=== PATIENT | female | born 2000 | race Caucasian/White ===

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

== ENCOUNTER 2022-11-12 07:33 | Inpatient (IN) ==
--- NOTE | 2022-11-12 08:13 | History & Physical Report ---
Date of Service November 12, 2022 Assessment & Plan (1) 39 weeks gestation of : Plan: Admit, routine labs, start oxytocin for augmentation Epidural if patient request Anticipate spontaneous vaginal delivery (2) Prior shoulder dystocia at delivery in third trimester, antepartum: Plan: Explained to patient that she is at increased risk of shoulder dystocia occurring due to previous shoulder dystocia, susected macrosomia on recent US. Studies have shown a 11.9%-16.7% recurrence rate for shoulder dystocia. Factors that will increase the risk of recurrence are high maternal pre-pre gnancy weight, high maternal weight at delivery, prolonged second stage of labor, birthweight greater than the index and a birthweight greater than 4000gm. Explained that no testing is available to guarantee whether or not a shoulder dystocia will occur but that most shoulder dystocias resolve with specific manuevers such as suprapubic pressure, Alexander maneuver, wood screw maneuver, delivering the posterior arm, pubic symphisotomy, or Zavenelli manuever to replace the head and deliver by section. Maternal complications of shoulder dystocia include hemorrhage (11%), extension of an episiotomy into the rectum (3.8%), and cervical or vaginal lacerations. complications include brachial plexus palsy (16.8%), clavicular fracture (9.5%), humeral fracture (4.2%), and rare cases of hypoxic ischemic encephalopathy or . Explained that most cases of trauma heal without complications. Recommend to avoid operative vaginal delivery and may consider delivery in the OR to keep risk as low as possible. Patient was offered primary delivery for history of shoulder dystocia, she declines at this time Admission and Anticipated Discharge Date Admission Date: November 12, 2022 History of Present Illness Chief Complaint: IOL Primary Care Provider: Vonda Lynn DO Patient is a 22-year-old -0-0-1 at 39 weeks and 1/7 days who presents to labor induction for elective induction of labor for suspected macrosomia. Patient denies contractions, leaking of fluid or vaginal bleeding. Notes good movement. Denies headache, blurry vision, right upper quadrant or epigastric pain. Otherwise feeling well has been complicated by GBS positive, iron deficiency anemia, and Rh- status. Upon review of previous delivery notes noted "mild to moderate shoulder dystocia". Patient has never been counseled this entire about previous shoulder dystocia or offered elective primary delivery Allergies Allergy/AdvReac Type Severity Reaction Status Date / Time No Known Allergies Allergy Verified 10/27/22 05:17 Home Medications Medication Instructions Recorded Confirmed Type ondansetron 4 mg disintegrating 4 mg PO Q6H PRN nausea and 04/03/22 11/12/22 Rx tablet vomiting #20 tabs vit no.95-ferrous 1 tab PO DAILY 04/03/22 11/12/22 History fumarate 28 mg-folic acid 800 mcg tablet () cyanocobalamin (vitamin B-12) 1,000 mcg PO DAILY 10/27/22 11/12/22 History 1,000 mcg tablet (Vitamin B-12) folic acid 1 mg tablet 1 mg PO DAILY 10/27/22 11/12/22 History Patient History Medical History No significant past medical history Spontaneous vaginal delivery 10/10/19 LFC 10lbs 5.5oz Surgical History No significant past surgical history Family History Other Family history not known due to adoption Social History Smoking Status: Never smoker Second Hand Exposure: No; Hx Alcohol Use: No Hx Substance Use: No Preferred Language: Welsh Communication Ability: Effective Tin Assorter Required: No Beliefs That Will Affect Care: None marital status: Single marital status details: Jan Olvera Current Living Situation: Spouse Current Living Situation Comment: House with FOB and daughter Other Information That Helps Us Care for You: No Feels Safe at Home: Yes Safety Concerns: Feels Safe At This Time Assistive Devices: None OB History with shoulder dystocia [employer]OR History See record Physical Exam Constitutional: WD/WN, vitals as above Respiratory: normal respiratory effort, lungs clear to auscultation Cardiovascular: RRR, no murmur, no edema Gastrointestinal (Abdomen): normal bowel sounds, soft, nontender, no hepatosplenomegaly EFW 3800 g Genitourinary: Cervix: 3/50/-2, anterior and soft, sutures felt ,cephalic Results & Data ([facility]) Vital Signs (Past 12 Hours) Vital Signs Temp Pulse Resp BP 11/12/22 07:47 36.6 C 16 11/12/22 07:41 98 H 124/76 Laboratory Results Laboratory Results WBC 8.68 K/ul (4.8-10.8) 11/12/22 08:35 RBC 3.77 M/uL (3.93-5.22) L 11/12/22 08:35 Hgb 11.8 g/dl (12.0-16.0) L 11/12/22 08:35 Hct 35.1 % (34.1-44.9) 11/12/22 08:35 MCV 93.1 fL (80.0-100.0) 11/12/22 08:35 MCH 31.3 pg (25.0-34.0) 11/12/22 08:35 MCHC 33.6 g/dL (32.0-36.0) 11/12/22 08:35 RDW Std Deviation 51.8 fL (36.4-46.3) H 11/12/22 08:35 RDW Coeff of West 15.0 % (11.5-14.5) H 11/12/22 08:35 Plt Count 192 K/uL (130-400) 11/12/22 08:35 MPV 10.5 fL (9.4-12.3) 11/12/22 08:35 SARS-CoV-2, RNA, NAAT NEGATIVE (NEGATIVE) 11/12/22 Unknown Crossmatch See Detail 11/12/22 08:35 Monitoring External Monitor heart tracing: Baseline 140, moderate variability, positive accelerations, no decelerations, category 1 tracing Tocodynamometer Irregular contractions
[2022-11-12] MEDS ORDERED: OXYTOCIN 30 UNITS/500 ML BAG IV PRN ×4 (08:24→17:48)
[2022-11-12] MEDS ORDERED: LIDOCAINE 1% LOCAL 20 ML VIAL INFIL PRN (08:24)
[2022-11-12] MEDS ORDERED: SODIUM CHLORIDE 0.9% 250 ML IV PRN (08:41)
[2022-11-12] MEDS ORDERED: PENICILLIN G POTASSIUM 6 MU in DEXTROSE 5% 250 ML IV ONE (09:00)
[2022-11-12 09:02] LABS: Hematocrit (blood only) 35.1 % (34.1-44.9); Hemoglobin 11.8 g/dl (12.0-16.0); Mean Corpuscular Hemoglobin 31.3 pg (25.0-34.0); Mean Corpuscular Hgb Conc 33.6 g/dL (32.0-36.0); Mean Corpuscular Volume 93.1 fL (80.0-100.0); Mean Platelet Volume 10.5 fL (9.4-12.3); Platelet Count 192 K/uL (130-400); RDW Standard Deviation 51.8 fL (36.4-46.3); Red Blood Count 3.77 M/uL (3.93-5.22); White Blood Count 8.68 K/ul (4.8-10.8)
[2022-11-12] MEDS: LACTATED RINGER'S 1,000 ML IV PRN ×2 (09:30→15:58)
[2022-11-12] MEDS: PENICILLIN G POTASSIUM 3 MU in DEXTROSE 5% 100 ML IV PRN ×2 (13:13→17:17)
--- NOTE | 2022-11-12 14:45 | Labor Progress Brief Note ---
Date of Service November 12, 2022 Subjective Patient doing well at this time, pain is 5 out of 10. Unsure if she wants epidural at this time Assessment & Plan (1) 39 weeks gestation of : Plan: Continue oxytocin for augmentation Epidural if patient request Anticipate spontaneous vaginal delivery (2) Prior shoulder dystocia at delivery in third trimester, antepartum: Plan: Explained to patient that she is at increased risk of shoulder dystocia occurring due to previous shoulder dystocia, susected macrosomia on recent US. Studies have shown a 11.9%-16.7% recurrence rate for shoulder dystocia. Factors that will increase the risk of recurrence are high maternal pre- weight, high maternal weight at delivery, prolonged second stage of labor, birthweight greater than the index and a birthweight greater than 4000gm. Explained that no testing is available to guarantee whether or not a shoulder dystocia will occur but that most shoulder dystocias resolve with specific manuevers such as suprapubic pressure, Alexander maneuver, wood screw maneuver, delivering the posterior arm, pubic symphisotomy, or Zavenelli manuever to replace the head and deliver by section. Maternal complications of shoulder dystocia include hemorrhage (11%), extension of an episiotomy into the rectum (3.8%), and cervical or vaginal lacerations. complications include brachial plexus palsy (16.8%), clavicular fracture (9.5%), humeral fracture (4.2%), and rare cases of hypoxic ischemic encephalopathy or . Explained that most cases of trauma heal without complications. Recommend to avoid operative vaginal delivery and may consider delivery in the OR to keep risk as low as possible. Patient was offered primary delivery for history of shoulder dystocia, she declines at this time (3) Positive GBS test: Plan: Patient has received 2 doses of penicillin G at this time, continue until delivery to prevent GBS sepsis in the (4) Macrosomia affecting management of mother in third trimester, single gestation: (5) Rh negative state in antepartum period: Admission and Anticipated Discharge Date Admission Date: November 12, 2022 Physical Exam Constitutional: WD/WN, vitals as above Respiratory: normal respiratory effort, lungs clear to auscultation Cardiovascular: RRR, no murmur, no edema Gastrointestinal (Abdomen): normal bowel sounds, soft, nontender, no hepatosplenomegaly Genitourinary: heart tracing: Baseline 130, moderate variability, positive accelerations, no decelerations, category 1 tracing Tocometer: Contractions every 3 to 4 minutes Oxytocin currently at 8 milliunits/h Cervix: 5/90/-1, AROM performed with clear fluid, no cord felt, IUPC placed without difficulty. No complications Results & Data ([facility]) Vital Signs (Past 12 Hours) Vital Signs Temp Pulse Resp BP 11/12/22 07:47 36.6 C 16 11/12/22 14:27 18 11/12/22 14:27 36.7 C 18 11/12/22 14:28 18 11/12/22 14:28 36.7 C 18 11/12/22 14:33 76 11/12/22 14:33 121/66 11/12/22 13:57 80 11/12/22 13:57 116/68 11/12/22 12:30 97 H 11/12/22 12:30 112/69 11/12/22 11:30 16 11/12/22 11:30 36.8 C 16 11/12/22 11:30 81 11/12/22 11:30 118/62 11/12/22 10:30 88 11/12/22 10:30 108/60 11/12/22 09:30 88 11/12/22 09:30 100/59 L 11/12/22 07:41 98 H 124/76 Laboratory Results Laboratory Results WBC 8.68 K/ul (4.8-10.8) 11/12/22 08:35 RBC 3.77 M/uL (3.93-5.22) L 11/12/22 08:35 Hgb 11.8 g/dl (12.0-16.0) L 11/12/22 08:35 Hct 35.1 % (34.1-44.9) 11/12/22 08:35 MCV 93.1 fL (80.0-100.0) 11/12/22 08:35 MCH 31.3 pg (25.0-34.0) 11/12/22 08:35 MCHC 33.6 g/dL (32.0-36.0) 11/12/22 08:35 RDW Std Deviation 51.8 fL (36.4-46.3) H 11/12/22 08:35 RDW Coeff of West 15.0 % (11.5-14.5) H 11/12/22 08:35 Plt Count 192 K/uL (130-400) 11/12/22 08:35 MPV 10.5 fL (9.4-12.3) 11/12/22 08:35 SARS-CoV-2, RNA, NAAT NEGATIVE (NEGATIVE) 11/12/22 Unknown Blood Type A Negative 11/12/22 08:35 Antibody Screen NEGATIVE 11/12/22 08:35 Crossmatch See Detail 11/12/22 08:35
[2022-11-12] MEDS ORDERED: ONDANSETRON INJ 2 MG/ML 2 ML VIAL IV PRN (15:38)
[2022-11-12] MEDS ORDERED: fentaNYL 2MCG/ML ROPIVACAINE 1.25MG/ML 100 ML BAG EPI PRN (15:38)
[2022-11-12] MEDS ORDERED: NALOXONE HCL 1 MG in SODIUM CHLORIDE 0.9% 1000ML 1,000 ML IV PRN (15:38)
[2022-11-12] MEDS ORDERED: diphenhydrAMINE 50 MG/ML VIAL IV PRN (15:38)
[2022-11-12] MEDS ORDERED: NALBUPHINE HCL INJ 10 MG/ML AMP IV PRN (15:38)
[2022-11-12] MEDS ORDERED: ePHEDrine sulfate 50 MG/ML AMP IV PRN (15:38)
[2022-11-12] MEDS ORDERED: NALOXONE HCL 0.4 MG/1 ML VIAL/CARP IV PRN (15:38)
[2022-11-12] MEDS ORDERED: ePHEDrine sulfate 50 MG/ML AMP ONE (15:40)
[2022-11-12] MEDS ORDERED: SODIUM CHLORIDE 0.9% INJ 10 ML VIAL ONE (15:41)
[2022-11-12] MEDS ORDERED: LIDOCAINE 2%/EPINEPHRINE 1:200,000 20 ML SDV ONE (15:41)
[2022-11-12] MEDS ORDERED: fentaNYL citrate 100 MCG/2 ML VIAL ONE (15:41)
[2022-11-12] MEDS ORDERED: BUPIVACAINE 0.25% 30 ML VIAL ONE (15:41)
[2022-11-12] MEDS ORDERED: fentaNYL 2MCG/ML ROPIVACAINE 1.25MG/ML 100 ML BAG EPI ONE (15:42)
--- NOTE | 2022-11-12 15:46 | Anesthesiology Consultation ---
Date of Service November 12, 2022 Assessment & Plan (1) Encounter for pre-operative examination: Chart Review Chart Review: Acceptable Risk for Labor Epidural Consults Requested none ASA ASA2 Proposed Anesthesia Anesthesia Type: Labor Epidural Risk / Benefits Reviewed With: PT / POA / Parent / Guardian, Accepts Plan and Informed Consent Obtained History Height/Weight Height: 5 ft 8 in Weight: 122.8 kg Allergies Allergy/AdvReac Type Severity Reaction Status Date / Time No Known Allergies Allergy Verified 10/27/22 05:17 Medications Home Medications Medication Instructions Recorded Confirmed Last Taken ondansetron 4 mg disintegrating 4 mg PO Q6H PRN nausea and 04/03/22 11/12/22 Unknown tablet vomiting #20 tabs vit no.95-ferrous 1 tab PO DAILY 04/03/22 11/12/22 11/11/22 fumarate 28 mg-folic acid 800 mcg tablet () cyanocobalamin (vitamin B-12) 1,000 mcg PO DAILY 10/27/22 11/12/22 11/11/22 1,000 mcg tablet (Vitamin B-12) folic acid 1 mg tablet 1 mg PO DAILY 10/27/22 11/12/22 11/11/22 Active Medications Generic Name Dose Route Start Last Admin Trade Name Freq PRN Reason Stop Dose Admin Lactated Ringer's 1,000 mls @ 125 mls/hr 11/12/22 08:24 11/12/22 09:30 Lr IV 11/14/22 08:23 125 mls/hr .Q8H PRN Administration L&D Protocol Protocol Penicillin G Potassium 3 mu/ 106 mls @ 100 mls/hr 11/12/22 11:24 11/12/22 14:17 Dextrose IV 11/22/22 11:23 Infused Q4H PRN Infusion GBS(+) Until Delivery Oxytocin 30 units in 500 mls @ 8 mls/hr 11/12/22 08:26 11/12/22 11:30 Pitocin IV 11/14/22 08:25 0.48 units/hr .Q24H PRN 8 mls/hr Labor Induction/Augmentation Titration Protocol 0.48 UNITS/HR Past Medical History Medical History Anemia No significant past medical history Spontaneous vaginal delivery 10/10/19 LFC 10lbs 5.5oz Exercise / Class Metabolic Activity II 4-5 Yardwork/Stairs/Walk up hill Past Family History Family History Other Family history not known due to adoption Past Surgical History Surgical History No significant past surgical history Past Anesthesia History No Hx of Anesthesia Complications and No Family Hx of Anesthesia Complications History of PONV No Hx of PONV and No Hx of Motion Sickness Social History Smoking Status: Never smoker Hx Alcohol Use: No Hx Substance Use: No Physical Exam Vital Signs Last Vital Signs Temp 98.1 F 11/12/22 14:28 Pulse 88 11/12/22 15:31 Resp 18 11/12/22 14:28 BP 118/65 11/12/22 15:31 ENMT Mouth: no dentition abnormality Thyromental Distance: > or= 3.5 Finger Breadths Mallampati Class: II Neck normal visual inspection Respiratory normal respiratory effort Auscultation: lungs clear to auscultation bilaterally Cardiovascular Rate/Rhythm: regular rate and regular rhythm Testing Laboratory Results 11/12/22 08:35 Blood Type A Negative 11/12/22 08:35 Antibody Screen NEGATIVE 11/12/22 08:35
[2022-11-12] MEDS ORDERED: ACETAMINOPHEN 325 MG TAB PO PRN (17:48)
[2022-11-12] MEDS ORDERED: DIPHTHERIA/TETANUS/PERTUSSIS 0.5mL SYR/VIAL (Age 7+yrs) IM ONE (17:48)
[2022-11-12] MEDS ORDERED: bisacodyL 10 MG SUPP PR PRN (17:48)
[2022-11-12] MEDS ORDERED: BENZOCAINE 20% AER SPR 82.5 GM CAN EXT PRN (17:48)
[2022-11-12] MEDS ORDERED: HYDROCORTISONE ACETATE 25 MG SUPP PR PRN (17:48)
--- NOTE | 2022-11-12 17:51 | Delivery Summary ---
Vaginal Delivery Summary Date of Service November 12, 2022 Vaginal Delivery Summary Delivery Note History synopsis: Patient is a 22-year-old -0-0-1 at 39 weeks and 1 day who is scheduled for elective induction of labor at 39 weeks. On review of records and previous delivery note noted previous shoulder dystocia at the time of last delivery. Patient was adequately counseled, offered primary elective section and declined at this time. Initial exam she is 3 cm dilated. Received 2 doses of penicillin G for GBS prophylaxis and was started on oxytocin for augmentation. She changed to 5 cm dilated, artificial rupture of membranes was performed and she received an epidural for pain control. She was then checked and found to be complete and I was called for delivery. Delivery Summary: Patient was placed in the dorsal lithotomy position. She was prepped and draped in the usual sterile fashion. Upon maternal pushing the head was delivered atraumatically, downward traction was applied and anterior shoulders delivered (no shoulder dystocia), then posterior shoulders then the remainder of the infants body. The infants mouth and nose were bulb suctioned with 60 sec of delayed cord clamping. A female infant was delivered at 1729, weight pending with APGARS of 8 at 1 minute and 9 at 5 minutes. The umbilical cord was clamped times two and cut. The infant was handed off to the awaiting nursing staff. Cord blood gases were not obtained. The placenta delivered intact with three vessel cord. Placenta was not sent to pathology. Thirty units of Pitocin were added to the IV fluid and allowed to run freely. Uterine massage was performed until uterus was deemed firm. Upon inspection of the perineum, cervix was intact. Second degree laceration was noted which was repaired with 3-0 vicryl in the usual fashion. Upon re-inspection the patient was hemostatic. Uterus again massaged and found to be firm. Needle and sponge counts were correct. Patient was stable and allowed to recover in L&D room. Infant was stable and remained in room with mother in the Family Care Unit. EBL 300mls
--- NOTE | 2022-11-12 18:35 | Anesthesia Procedure Note ---
Date of Service November 12, 2022 Anesthesia Post Epidural Note Vital Signs Vital Signs: Temp Pulse Resp BP Pulse Ox 98.2 F 81 18 116/56 L 95 11/12/22 16:23 11/12/22 18:31 11/12/22 18:30 11/12/22 18:31 11/12/22 17:43 Pain Intensity Abdomen: Pain Intensity: 6 Back: Pain Intensity: 3 Notes Mental Status: alert / awake / arousable and participated in evaluation Nausea / Vomiting: adequately controlled Pain: adequately controlled Airway Patency, RR, SpO2: stable & adequate BP & HR: stable & adequate Hydration State: stable & adequate Neuraxial Anesthesia: was administered and sensory block is resolving Anesthetic Complications: no major complications apparent and Pt Satisfied with anesthetic care Epidural: Removed without complications and With tip intact
[2022-11-12] MEDS: DOCUSATE SODIUM 100 MG CAP PO SCH (21:20)
[2022-11-13] MEDS: IBUPROFEN 600 MG TAB PO PRN ×3 (03:31→12:20)
[2022-11-13 06:10] LABS: Hemoglobin 11.3 g/dl (12.0-16.0); Mean Corpuscular Hemoglobin 31.4 pg (25.0-34.0); Mean Corpuscular Hgb Conc 33.2 g/dL (32.0-36.0); Mean Corpuscular Volume 94.4 fL (80.0-100.0); Mean Platelet Volume 10.5 fL (9.4-12.3); Platelet Count 170 K/uL (130-400); RDW Coefficient of Variation 15.1 % (11.5-14.5); RDW Standard Deviation 52.1 fL (36.4-46.3); White Blood Count 8.26 K/ul (4.8-10.8)
[2022-11-13] MEDS ORDERED: FERROUS SULFATE 325 MG TAB PO SCH (08:00)
[2022-11-13] MEDS ORDERED: PRENATAL VITAMIN 1 TAB PO SCH (08:00)
[2022-11-13] MEDS: DOCUSATE SODIUM 100 MG CAP PO SCH (08:10)
[2022-11-13] MEDS: ACETAMINOPHEN W/CODEINE #3 1 TAB PO PRN ×2 (09:14→14:16)
--- NOTE | 2022-11-13 09:53 | Obstetrical Progress Note ---
Date of Service November 13, 2022 Subjective Ambulation: ambulating normally Voiding: no voiding problems Passing Gas:: Yes Diet Tolerance:: regular diet Lochia:: Small Feeding Type:: bottle feeding Current Pain Level(1-10): 0 doing well. plans for d/c today Physical Exam Constitutional WD/WN, vitals as above Gastrointestinal (Abdomen) Inspection/Auscultation: abdomen normal to inspection abdomen soft and non-tender. fundus firm below U Musculoskeletal Extremities: extremities normal to inspection Skin no rashes, warm and dry Neurologic patellar DTR's 2+ bilat, sensation intact Psychiatric A+Ox3, euthymic affect Results & Data ([facility]) Vital Signs (Past 12 Hours) Vital Signs Temp Pulse Resp BP Pulse Ox O2 Del Method 11/13/22 08:15 36.4 C L 88 14 113/76 97 Room Air 11/13/22 03:46 36.7 C 82 18 116/58 L 11/12/22 23:15 36.9 C 80 18 112/69 Laboratory Results Laboratory Results - last 72 hr 11/12/22 11/12/22 11/12/22 08:35 08:35 Unknown WBC 8.68 RBC 3.77 L Hgb 11.8 L Hct 35.1 MCV 93.1 MCH 31.3 MCHC 33.6 RDW Std Deviation 51.8 H RDW Coeff of West 15.0 H Plt Count 192 MPV 10.5 SARS-CoV-2, RNA, NAAT NEGATIVE Blood Type A Negative Antibody Screen NEGATIVE Screen Crossmatch See Detail 11/13/22 11/13/22 05:42 05:42 WBC 8.26 RBC 3.60 L Hgb 11.3 L Hct 34.0 L MCV 94.4 MCH 31.4 MCHC 33.2 RDW Std Deviation 52.1 H RDW Coeff of West 15.1 H Plt Count 170 MPV 10.5 SARS-CoV-2, RNA, NAAT Blood Type Cancelled Antibody Screen Cancelled Screen Cancelled Crossmatch
[2022-11-13] MEDS ORDERED: bisacodyL 5 MG TABEC PO SCH (20:00)
== END 2022-11-13 19:40 | disposition home or self-care (01) | DRG 807 ==
LOC: 4S1 07:33 → 4E2 20:50

== ENCOUNTER 2024-07-01 08:44 | Inpatient (IN) ==
[2024-07-01] MEDS ORDERED: OXYTOCIN 30 UNITS/NSS 30 UNITS/500 ML BAG IV PRN ×2 (09:18→16:58)
[2024-07-01] MEDS ORDERED: LIDOCAINE 1% LOCAL 20 ML VIAL INFIL PRN (09:18)
--- OUTSIDE RECORDS SUMMARY | 2024-07-01 09:43 | External Medical Summary | Summary of Care ---
Author Name Unknown Organization [facility] Address [address] [place] [address] Phone [phone] Care Team Providers Care In Store Marketer Name Role Phone Vonda Lynn DO Primary Care Provider [phone]- [phone] Reason for Visit * Reason Onset Date Comments Anemia Follow-Up 06/09/2024 Encounter Details Date Type Department Care Team (Late st Contact Info) Description 06/09/2024 10:00 AM EDT Pharmacy Pharmacy, [facility] [address] [place] [address] Clinic, Anemia [address] [place] [address] Iron deficiency anemia, unspecified iron deficiency anemia type* Allergies No known active allergiesdocumented as of this encounter (statuses as of 06/09/2024) Medications Medication Sig Dispensed Refills Start Date End Date Status Complete Oral Capsule Therapy Pack Take by mouth. Active Escitalopram Oxalate 5 MG Oral Tablet (Lexapro)Indication s:Depression affecting Take 1 Tablet by mouth in the morning. 90 Tablet 3 12/15/2023 Active Additional Information Patient not taking.Reported on 01/12/2024 Ondansetron HCl 4 MG Oral TabletIndications:N ausea and vomiting during Take 1 Tablet by mouth every 8 hours as needed for Nausea or Vomiting. 20 Tablet 01/12/2024 Active documented as of this encounter (statuses as of 06/09/2024) Active Problems Problem Noted Date Diagnosed Date Iron deficiency anemia 05/18/2024 Antepartum anemia complicating 024 Food insecurity 03/08/2024 Overview: Per [facility] Protocol High-risk 12/15/2023 Last Assessment & Plan: 04/16/2024 Tdap Vaccine administered per clinic protocol. Pt given VIS(vaccine information sheet) Tory Lorenzo LPN History of shoulder dystocia in prior 12/15/2023 Obesity in , antepartum 12/15/2023 Overview: The patient's pre-gravid BMI is 40.30. Class 3 Early GTT, baseline preE labs. Growth q4 wks, NSTs 34 wks, deliver by FIONA Umbilical cord cyst during , antepartum 12/15/2023 Overview: Noted on dating scan. Low risk Qnatal testing. Depression affecting 12/15/2023 Overview: Rx Lexapro at NOB History of delivery of macrosomal infant 022 Overview: 10lb 5oz, 10lb 2oz vaginal delivery Rh negative status during 07/27/2019 Last Assessment & Plan: Rhogam given 04/16/24 Tory Lorenzo LPN Other allergic rhinitis 02/12/2006 Overview: ICD-10 update of inactive term Estimated Date of Delivery Comme nts Yes 07/05/2024 Based on last me nstrual period of 09/29/2023 documented as of this encounter (statuses as of 06/09/2024) Resolved Problems Problem Noted Date Diagnosed Date Resolved Date Food insecurity 11/04/2022 12/15/2023 Overview: Per [facility] Protocol LGA (large for gestational a ge) fetus affecting management of mother 10/29/2022 Overview: Normal GTT at 28 wks and again at 37w1d GBS (group B Streptococcus c arrier), +RV culture, currently 10/25/2022 12/15/2023 Iron deficiency anemia 09/06/202201/11 Health counseling 04/12/2022 12/15/2023 Overview: Problem Action Taken Date entered Entered by Date resolved Current needs or questions Patient denies having any current needs or questions 04/12/2022 Courtney Richardson RN 04/12/2022 nutrition Due date letter given 04/12/2022 Courtney Richardson RN 04/12/2022 Problem Action Taken Date entered Entered by Date resolved Current needs or questions Patient denies having any current needs or questions 05/10/2022 Courtney Richardson RN 05/10/2022 Problem Action Taken Date entered Entered by Date resolved Current needs or questions 2nd trimester education Patient denies having any current needs or questions 06/07/2022 Courtney Richardson RN 06/07/2022 Problem Action Taken Date entered Entered by Date resolved Denies any concerns 06/26/2022 Katherin Persaud RN 06/26/22 Problem Action Taken Date entered Entered by Date resolved Current needs or questions Patient denies having any current needs or questions 07/12/2022 Courtney Richardson RN 07/12/2022 Problem Action Taken Date entered Entered by Date resolved Current needs or questions Patient denies having any current needs or questions 08/09/2022 Katherin Persaud RN 08/09/22 Problem Action Taken Date entered Entered by Date resolved Current needs or questions Patient denies having any current needs or questions 08/23/2022 Katherin Persaud RN 08/23/2022 Obesity, Class II, BMI 35-39 .9, isolated (see actual BMI) 04/12/2022 12/15/2023 Overview: Early glucola NST weekly starting at 37w Normal 04/12/2022 12/15/2023 Late care 07/23/2019 Overview: NOB at 30w. No care thus far TDAP given 07/23/19. Christen Keith, [employer]RO[employer] CONSULTANT Closed fracture of metatarsal bone 10/11/2008 11/29/2020 Overview: ICD-10 update of inactive term documented as of this encounter (statuses as of 06/09/2024) Immunizations Name Administration Dates Next Due DTaP Dipth/Tet/Acell Pertussis (Infanrix), Peds 02/12/2006,01/11/2002,04/17/2001,02/10,2000 H1N1 2009 Influenza, Intranasal 09/08/2009 HIB PRP-T, 4 Dose, PF, IM (H iberix, ActHib) 10/23/2001,02/10/2001,2000 HPV Vaccine, 4-Valent 02/01/2013,11/11/2012,09/26 Hepatitis B, 0-19 yrs 10/23/2001,2000,09/26 IPV - Polio Virus Vaccine (Inact) 2005,01/11/2002,02/10/2001,12/11 MMR - Measles/Mumps/Rubella Vaccine 02/12/2006,1 2000 Meningococcal Conjugate Vacc ine (Menactra/Menveo) 01/23/2017,2011 PPD 05/19/2017 Seasonal Influenza Intranasal 08/13/2010,2 009,09/10/2006 Seasonal Influenza, PF, 6 M & above, IM , (FluLaval or Fluzone) 07/12/2022,07/23/2019 Seasonal Influenza, Quadriva lent, No Preserve, IM 09/04/2015 Seasonal Influenza, Split, I IV3, With Preserve, Inj 11/08/2014,2011,09/16/2008,08/31,09/09/2005 TDAP (age 10 and older)(Boostrix) 2023,08/23/2022,07/23/2019,01/23 TDAP, Age 7 and older, IM (Adacel) 2011 Varicella Vaccine (Chicken Pox) 10/17/2010,10/23 documented as of this encounter Social History Tobacco Use Types Packs/Day Years Used Date Smoking Tobacco: Never Smokeless Tobacco: Never Alcohol Use Standard Drinks/Week Comments No 0 (1 standard drink = 0.6 oz pur e alcohol) PHQ-2 Answer Date Recorded PHQ-2 Score 2 02/02/2019 Hunger Vital Sign Answer Date Recorded Within the past 12 months, y ou worried that your food would run out before you got the money to buy more. Sometimes true Within the past 12 months, t he food you bought just didn't last and you didn't have money to get more. Never true 06/2024 Mora Depression Scale Answer Date Recorded Mora Depression Scale Total 16 04/16/2024 The thought of harming myself has occurred to me . Never 04/16/2024 Childcare Answer Date Recorded Do you feel overwhelmed with taking care of a child, family member or friend? No 02/03/2024 Does your family need help f inding childcare? (Household - for ages 0-17 years) Not on file 02/03/2024 Clothing Answer Date Recorded Have you been unable to get clothing when it was really needed? No 02/03/2024 Is your family able to get c lothes or diapers when needed? (Household - for ages 0-17 years) Not on file 02/03/2024 Personal Safety Answer Date Recorded Do you feel unsafe or have concerns for your saf ety? No 02/03/2024 Do you have concerns for you r family's safety? (Household - for ages 0-17 years) Not on file 02/03/2024 Utilities Answer Date Recorded Do you have trouble paying y our heating, water, or electric bill? Yes 02/03/2024 Is your family able to pay t he heat, water, or electric bill? (Household - for ages 0-17 years) Not on file 02/03/2024 Does your family have access to good internet? (Household - for ages 0-17 years) Not on file 02/03/2024 Employment Status Answer Date Recorded Are you unemployed or without regular income? No 02/03/2024 Does the household have a re gular source of income? (Household - for ages 0-17 years) Not on file 02/03/2024 Social Connections Answer Date Recorded How often do you feel lonely or isolated from those around you? Sometimes 02/03/2024 Financial Resource Strain Answer Date R ecorded Do you have any trouble payi ng for your medications, or do you think you might in the future? No 02/03/2024 Does your family have troubl e paying for medicine? (Household - for ages 0-17 years) Not on file 02/03/2024 Transportation Needs Answer Date Record ed READ ONLY Do you have troubl e getting a ride to medical visits or work? Never True 02/03/2024 Does your family have a hard time getting a ride to doctors visits? (Household - for ages 0-17 years) Not on file 02/03/2024 Has lack of transportation k ept you from medical appointments, meetings, work, or from getting things needed for daily living? Check all that apply. (Adult - for ages 18 years and over) Not on file 02/03/2024 Do you (or your family) have trouble finding or paying for a ride (transportation)? (Household - for ages 0-17 years) Not on file 02/03/2024 Housing Stability Answer Date Recorded Do you currently live in a s helter or have no steady place to sleep at night? No 02/03/2024 READ ONLY Do you think you a re at risk of becoming homeless? No 02/03/2024 Does your family worry about paying for your home or becoming homeless? (Household - for ages 0-17 years) Not on file 0 02/03/2024 Are you homeless or worried that you might be in the future? (Adult - for ages 18 years and over) Not on file Are you (or your family) nader eless or worried that you might be in the future? (Household - for ages 0-17 years) Not on file Food Insecurity Answer Date Recorded Do you need food for this week? No 02/03/2024 Are you able to get enough f ood for your family? (Household - for ages 0-17 years) Not on file 02/03/2024 Does your family need food t his week? (Household - for ages 0-17 years) Not on file 02/03/2024 Do you always have enough fo od for your family? (Household - for ages 0-17 years) Not on file 02/03/2024 Estimated Date of Delivery Comme nts Yes 07/05/2024 Based on last me nstrual period of 09/29/2023 Sex and Gender Information Value Date Recorded Sex Assigned at Female 02/08/2022 10:06 AM EDT Gender Identity Female 02/08/2022 10:06 AM EDT Sexual Orientation Straight 02/08/2022 10 :06 AM EDT Job Start Date Occupation Industry Not on file Not on file Not on file documented as of this encounter Progress Notes * Ivis Mckeon RP - 06/09/2024 3:11 PM EDT Patient has not received first dose of Infed. Provided patient with number to [facility]. Also messaged infusion center. Scheduled to be completed: TBA GA: 36w2d Estimated Date of Delivery: 07/05/24 Follow-up after completion of series to schedule repeat labs if appropriate prior to delivery. Anemia Clinic will continue to follow. Thank you for allowing us to participate in the care of thispatient. Thanks, Ivis Mckeon [facility] Clinical Pharmacist [facility] (P: [phone]) documented in this encounter Plan of Treatment Upcoming Encounters Date Type Department Care Team (Late st Contact Info) Description 06/16/2024 9:15 AM EDT Office Visit Gynecology/Obstetrics [facility]ana [facility] [address] [place] [address] Tracey Franco CRNP [address] [place] [address] Mely Avila Stress Tests [facility] [address] [place] [address] 06/16/2024 10:00 AM EDT Pharmacy Pharmacy, [place] [address] [place] [address] Clinic, [facility] [address] [place] [address] 06/23/2024 9:00 AM EDT Office Visit Gynecology/Obstetrics [facility] [address] [place] [address] Tracey Franco CRNP [address] [place] [address] [place], Non Stress Tests [facility] [address] [place] [address] 06/30/2024 10:00 AM EDT Office Visit Gynecology/Obstetrics [facility] [address] [place] [address] Tracey Franco CRNP [address] [place] [address] Mely Avila Stress Tests [facility] [address] [place] [address] Health Maintenance Due Date Last Done Comments Depression Monitoring 02/03/2020 02/02/2019 COVID-19 Vaccine ( season) 2023 01/26/2023, 01/04/2023 Influenza Vaccine (FLU shot) (#1) 2024 07/12/2022, 07/12/2022, 07/23/2019, Additional history exists Gonorrhea / Chlamydia Screen 12/15/2024, 04/12/2022, 07/23/2019 Pap Smear 04/12/2025 04/12/2022 DTaP,Tdap,and Td Vaccines (11 - Td or Tdap) 04/16/2034 04/16/2024, 08/23/2022, 07/23/2019, Additional history exists Hepatitis B Vaccine Completed 10/23/2001, 2000, 2000 HPV (Gardasil) Vaccine Completed 3, 11/11/2012, 2011 MENINGOCOCCAL (MENACTRA/MENVEO) Completed 01/23/2017, 2011 Pneumococcal Vaccine: Pediatrics (0 to 5 Years) and At-Risk Patients (6 to 64 Years) Aged Out No longer eligible based on patient's age to complete this topic documented as of this encounter Medical Devices Not on filedocumented as of this encounter Visit Diagnoses Diagnosis Iron deficiency anemia, unspecified iron deficiency anemia type- Primary documented in this encounter Care Teams In Store Marketer Relationship Specialty Start Date End Date Vonda Lynn DO [address] [facility] [address] [place] [address] PCP - General Family Medicine 03/18/22 documented as of this encounter
--- OUTSIDE RECORDS SUMMARY | 2024-07-01 09:43 | External Medical Summary | Summary of Care ---
Author Name Unknown Organization [facility] Address [address] [place] [address] Phone [phone] Care Team Providers Care Primer Assembler Name Role Phone Vonda Lynn DO Primary Care Provider +1- [phone] Reason for Visit * Reason Comments IV Therapy Infed Encounter Details Date Type Department Care Team (Latest Contact Info) Description 06/18/2024 9:00 AM EDT Hem/Onc Treatment Hematology/Oncology Treatment, [address] [phone] Debra, Chair [address] [address] Iron deficiency anemia, unspecified iron deficiency anemia type* Allergies No known active allergiesdocumented as of this encounter (statuses as of 06/18/2024) Medications Medication Sig Dispensed Refills Start Date [...] as of this encounter (statuses as of 06/18/2024) Active Problems Problem Noted Date Diagnosed Date [...] at NOB History of delivery of macrosomal 022 Overview: 10lb 5oz, 10lb 2oz vaginal delivery Rh negative status during 07/27/2019 Last Assessment & Plan: Rhogam given 04/16/24 Tory Lorenzo LPN Other allergic rhinitis 02/12/2006 Overview: ICD-10 update of inactive term Estimated Date of Delivery Comme nts Yes 07/05/2024 Based on last me nstrual period of 09/29/2023 documented as of this encounter (statuses as of 06/18/2024) Resolved Problems Problem Noted Date Diagnosed Date [...] thus far TDAP given 07/23/19. Christen Keith, BLADE SHARPENER Closed fracture of metatarsal bone 10/11/2008 11/29/2020 Overview: ICD-10 update of inactive term documented as of this encounter (statuses as of 06/18/2024) Immunizations Name Administration Dates Next Due DTaP Dipth/Tet/Acell Pertussis (Infanrix), Peds 02/12/2006,01/11/2002,04/17/2001,02/10,2000 H1N1 2009 Influenza, Intranasal 09/08/2009 HPV Vaccine, 4-Valent 02/01/2013,11/11/2012,09/26 Hepatitis B, 0-19 yrs 10/23/2001,2000,09/26 IPV - Polio Virus Vaccine (Inact) 2005,01/11/2002,02/10/2001,12/11 MMR - Measles/Mumps/Rubella Vaccine 02/12/2006,1 2000 Meningococcal Conjugate Vacc ine (Menactra/Menveo) 01/23/2017,2011 PPD 05/19/2017 Seasonal Influenza Intranasal 08/13/2010, 009,09/10/2006 Seasonal Influenza, PF, 6 M & above, IM , (FluLaval or Fluzone) 07/12/2022,07/23/2019 Seasonal Influenza, Quadriva lent, No Preserve, IM 09/04/2015 Seasonal Influenza, Split, I IV3, With Preserve, Inj 11/08/2014,2011,09/16/2008,08/31 TDAP (age 10 and older)(Boostrix) 2023,08/23/2022,07/23/2019,01/23 TDAP, Age 7 and older, IM (Adacel) 2011 Varicella Vaccine (Chicken Pox) 10/17/2010,10/23 documented as of this encounter Social History Tobacco Use Types Packs/Day Years Used Date Smoking Tobacco: Never Smokeless Tobacco: Never Tobacco Cessation:Counseling Given: Not Answered Alcohol Use Standard Drinks/Week Comments No 0 [...] money to get more. Never true 06/2024 Coleman Depression Scale Answer Date Recorded Coleman Depression Scale Total 16 04/16/2024 The thought [...] on file documented as of this encounter Last Filed Vital Signs Vital Sign Reading Time Taken Comments Blood Pressure 119/76 06/18/2024 10:21 AM EDT Pulse 95 06/18/2024 10:21 AM EDT Temperature 36.6 C (97.9 F) 06/18/2024 9:03 AM ED T Respiratory Rate 16 06/18/2024 10:2 1 AM EDT Oxygen Saturation 96% 06/18/2024 10: 21 AM EDT Inhaled Oxygen Concentration - - Weight 127.7 kg (281 lb 9.6 oz) 06/18/2024 9:03 AM EDT Height - - Body Mass Index 42.82 12/15/2023 9:53 AM EST documented in this encounter Nursing Notes * Nayeli Avalos RN - 06/18/2024 12:01 PM EDT Goals: Patient will remain free from injury. Possible barriers to meeting goals: ambulating with IV pole Stability of the patient: Moderately stable - low risk of patient condition declining or worsening Summary regarding today's goals: Met: pt remained free of harm today Patient tolerated treatment well without any acute issues or problems. Patient left facility in stable condition and denied any further needs. * Nayeli Avalos RN - 06/18/2024 11:56 AM EDT Chair 9. Pt here for Infed infusion, feeling well today. No acute issues or complaints. IV inserted without difficulty. Safety and Risk for Injury Patient will remain free from injury. Ensure appropriate safety devices are available. Provide and maintain safe environment. Patient instructed on use of heat and massage functions where applicable. Patient shown how to operate the heat function of the chair and to alert nursing staff if the chair feels too warm. Patient instructed on the risk of potential kramer while using the heat function. documented in this encounter Plan of Treatment Upcoming Encounters Date Type Department Care Team (Late st Contact Info) Description 06/22/2024 10:00 AM EDT Pharmacy Pharmacy, [address] [phone] Clinic, [address] [address] 06/23/2024 9:00 AM EDT Office Visit Gynecology/Obstetrics [facility] [address] [facility] [place] [address] Tracey Franco CRNP [facility] [place] [address] [place], Non Stress Tests [address] [address] 06/23/2024 10:30 AM EDT Imaging [facility] [address] [facility] [place] [address] 06/30/2024 10:00 AM EDT Office Visit Gynecology/Obstetrics [facility] [address] [facility] [place] [address] Tracey Franco CRNP [address] [place] [address] [place], Non Stress Tests [address] [place] [address] Health Maintenance Due Date Last Done Comments Depression Monitoring 02/03/2020 02/02/2019 COVID-19 Vaccine (2022-24 season) 2023 01/26/2023, 01/04/2023 Influenza Vaccine (FLU shot) (#1) 2024 07/12/2022, 07/12/2022, 07/23/2019, Additional history exists Gonorrhea / Chlamydia Screen 12/15/2024, 04/12/2022, 07/23/2019 Pap Smear 04/12/2025 04/12/2022 DTaP,Tdap,and Td Vaccines (11 - Td or Tdap) 04/16/2034 04/16/2024, 08/23/2022, 07/23/2019, Additional history exists Hepatitis B Vaccine Completed 10/23/2001, 2000, 2000 HPV (Gardasil) Vaccine Completed , 11/11/2012, 2011 MENINGOCOCCAL (MENACTRA/MENVEO) Completed 01/23/2017, 2011 [...] anemia type- Primary documented in this encounter Administered Medications Active Administered Medications - up to 3 most recent administrations Medication Order MAR Action Action Date Dose Rate Site EPINEPHrine 1 MG/ML inj 0.3 mg 0.3 mg, Intramuscular, ONCE PRN Other, Hypersensitivity Reaction or Anaphylaxis, Starting on Fri06/18/24 at 0914, Until 06/19/24 at 0913, For 24 hours Famotidine (Pepcid) inj 20 mg 20 mg, IV Push, ONCE PRN Other, Hypersensitivity Reaction, Starting on Fri06/18/24 at 0914, Until 06/19/24 at 0913, For 24 hours, Give IV push over 2 minutes. hEParin 100 UNIT/ML Lock Flush inj 500 Units 500 Units (5 mL), IV Lock, PRN Other, IV Flush, Starting on Fri06/18/24 at 0914, Until 06/19/24 at 0913, For 24 hours, Do not flush if lock, PICC, or central line not in place; IV infusing or unable to flush. Hydrocortisone Sod Suc (PF) (Solu-Cortef) inj 100 mg 100 mg, IV Push, ONCE PRN Other, Hypersensitivity Reaction, Starting on Fri06/18/24 at 0914, Until 06/19/24 at 0913, For 24 hours NSS infusion Intravenous, at 50 mL/hr, PRN, Starting on Fri06/18/24 at 1015, Until Discontinued, Maintenance line Start Infusion 06/18/2024 9:16 AM EDT 50 mL/hr oxygen GAS Inhalation, OXYGEN, First dose on Fri06/18/24 at 0945, Until Discontinued, Device/Managed by: Low Flow Device, Goal SPO2 (%): 91-95, Starting Device: Nasal Cannula, Initial Flow Rate (LPM): 2, Lowest Support: Nasal Cannula: Flow 0-6 LPM. Titrate up/down by 1 LPM., Higher Support: Non-Rebreather (NRB) Mask: Minimum of 10 LPM. Titrate to maintain bag inflation., Titration Interval: Q2 minutes and as needed., Notify Provider: For sudden DECREASE in resting SPO2 to less than 85% and when escalating delivery device., Wean patient off Oxygen when the oxygen saturation is greater than or equal to 93% sodium chloride 0.9 % flush central line 10 mL 10 mL, IV Push, PRN Other, IV Flush, Starting on Fri06/18/24 at 0914, Until 06/19/24 at 0913, For 24 hours, Do not flush if lock, PICC, or central line not in place; IV infusing or unable to flush. Inactive Administered Medications - up to 3 most recent administrations Medication Order MAR Action Action Date Dose Rate Site Iron Dextran (Infed) 975 mg in NSS 250 mL INFUSION 975 mg, IV Piggyback, ONCE, 1 dose, On Fri06/18/24 at 1030, Administer over 1 Hours, - Administer iron dextran infusion bag over 1 hour - Monitor for infusion reactions with vitals at 30 minutes and 60 minutes after starting the infusion. - If patient develops sign/symptoms of reaction or vital signs outside normal limits: 1) STOP infusion 2) CONTACT physician Start Infusion 06/18/2024 9:42 AM EDT 975 mg 274.5 mL/hr Iron Dextran (Infed) IV Push TEST DOSE 25 mg IV Push, Administer over 0.5 Minutes, -Educate patient on signs/symptoms of infusion reaction -Administer 25 mg test dose of iron dextran before infusion bag -Observe patient for signs/symptoms of reaction with vital signs before test dose, then at 15 minutes after administering the test dose -If patient tolerates test dose with no reaction, proceed with iron dextran infusion -HOLD infusion and contact physician immediately if patient reacts to test dose, ONCE, 1 dose, On Fri06/18/24 at 1015 Given 06/18/2024 9:16 AM EDT 25 mg documented in this encounter Care Teams Primer Assembler Relationship Specialty Start Date End Date Vonda Lynn DO [address] [facility] [address] [place] [address] PCP - General Family Medicine 03/18/22 documented as of this encounter
--- OUTSIDE RECORDS SUMMARY | 2024-07-01 09:43 | External Medical Summary | Summary of Care ---
Author Name Unknown Organization [facility] Address [address] [place] [address] Phone [phone] Care Team Providers Care Paint Striping Machine Operator Name Role Phone Vonda Lynn DO Primary Care Provider +1- [phone] Reason for Visit * Reason Comments Return Visit Non Stress Test Encounter Details Date Type Department Care Team (Late st Contact Info) Description 06/16/2024 9:15 AM EDT Office Visit Gynecology/Obstetric s [facility]ana [facility] [address] [facility] [place] [address] Tracey Franco CRNP [address] [place] [address] [place] Non Stress Tests [place] [address] [place] [address] High-risk in third trimester*; Rh negative status during in third trimester; History of delivery of macrosomal infant; History of shoulder dystocia in prior ; Obesity in , antepartum; Umbilical cord cyst during , antepartum; Depression affecting ; Antepartum anemia complicating Allergies No known active allergiesdocumented as of this encounter (statuses as of 06/16/2024) Medications Medication Sig Dispensed Refills Start Date [...] as of this encounter (statuses as of 06/16/2024) Active Problems Problem Noted Date Diagnosed Date Iron deficiency anemia 05/18/2024 Antepartum anemia complicating 024 Food insecurity 03/08/2024 Overview: Per [facility] Protocol High-risk 12/15/2023 Last Assessment & [...] as of this encounter (statuses as of 06/16/2024) Resolved Problems Problem Noted Date Diagnosed Date [...] care thus far TDAP given 07/23/19. Christen Keith LPN Closed fracture of metatarsal bone 10/11/2008 11/29/2020 Overview: ICD-10 update of inactive term documented as of this encounter (statuses as of 06/16/2024) Immunizations Name Administration Dates Next Due DTaP [...] money to get more. Never true 06/2024 [place] Depression Scale Answer Date Recorded [place] Depression Scale Total 16 04/16/2024 The thought [...] Sign Reading Time Taken Comments Blood Pressure 118/70 06/16/2024 9:34 AM EDT Pulse - - Temperature - - Respiratory Rate - - Oxygen Saturation - - Inhaled Oxygen Concentration - - Weight 127 kg (280 lb) 06/16/2024 9:34 AM EDT Height - - Body Mass Index 42.57 12/15/2023 9:53 AM EST documented in this encounter Progress Notes * Tracey Franco CRNP - 06/16/2024 9:51 AM EDT 37w2d No concerns. Denies contractions. Reports good FM. Will obtain growth u/s with next visit. ASSESSMENT assessment with Non-stress Test completed on 06/16/2024 at 37.2weeks gestation for indication of obesity heart baseline: 130 bpm Variability: Moderate Decelerations: absent Accelerations: present Contractions: None NST start time: 1606 NST stop time: 1631 NST strip reviewed, interpreted, and approved by OB providerTracey CRNP . NST strip stored in clinic storage file documented in this encounter Plan of Treatment Upcoming Encounters Date Type Department Care Team (Late st Contact Info) Description 06/18/2024 9:00 AM EDT Hem/Onc Treatment Hematology/Oncology Treatment, [place] [address] [place] [phone] Park, Chair 10 Hem Onc Scenery [address] [place] [address] 06/22/2024 10:00 AM EDT Pharmacy Pharmacy, [place] [address] [place], [place] [id number] Clinic, [facility] [address] [place] [address] 06/23/2024 9:00 AM EDT Office Visit Gynecology/Obstetrics [facility] [address] [place] [address] Tracey Franco CRNP [address] [place] [address] [place], Non Stress Tests [facility] [address] [place] [address] 06/23/2024 10:30 AM EDT Imaging Radiology [facility] 2nd Floor, [place] [address] [place] [address] 06/30/2024 10:00 AM EDT Office Visit Gynecology/Obstetrics [facility] [address] [place] [address] Tracey Franco CRNP [address] [place] [address] [place], Non Stress Tests [place] [address] [place] [address] Scheduled Orders Name Type Priority Associated Diagnoses Orde r Schedule US PREG FOLLOW-UP EACH FETUS Medical Imaging Routine Obesity in , antepartum Expected: 06/23/2024 (Approximate), Expires: 07/17/2025 Health Maintenance Due Date Last Done Comments [...] as of this encounter Visit Diagnoses Diagnosis High-risk in third trimester- Primary Rh negative status during in third trimester History of delivery of macrosomal History of shoulder dystocia in prior Obesity in , antepartum Obesity complicating , childbirth, or the puerperium, antepartum condition or complication Umbilical cord cyst during , antepartum Depression affecting Antepartum anemia complicating Anemia, antepartum documented in this encounter Care Teams Paint Striping Machine Operator Relationship Specialty Start Date End Date Vonda Lynn DO [address] [facility] 2 [place] [address] PCP - General Family Medicine 03/18/22 documented as of this encounter
--- OUTSIDE RECORDS SUMMARY | 2024-07-01 09:43 | External Medical Summary | Summary of Care ---
Author Name Unknown Organization [facility] Address [address] [place] [address] Phone [phone] Care Team Providers Care Assistant Golf Coach Name Role Phone Vonda Lynn DO Primary Care Provider +1- [phone] Reason for Visit * Reason Comments Return Visit Non Stress Test Encounter Details Date Type Department Care Team (Late st Contact Info) Description 06/16/2024 9:15 AM EDT Office Visit Gynecology/Obstetric s Maryana Avila [address] [facility] [place] [address] Tracey Franco CRNP [address] [place] [address] [place] Non Stress Tests [place] [address] [place] [address] High-risk in third trimester*; Rh negative status [...] complicating 024 Food insecurity 03/08/2024 Overview: Per [facility] Protocol High-risk 12/15/2023 Last Assessment & [...] money to get more. Never true 06/2024 [place] Depression Scale Answer Date Recorded [place] Depression Scale Total 16 04/16/2024 The thought [...] 9:00 AM EDT Hem/Onc Treatment Hematology/Oncology Treatment, [place] [address] [place] [phone] Park, Chair 10 Hem Onc Scenery [address] [place] [address] 06/22/2024 10:00 AM EDT Pharmacy Pharmacy, [place] [address] [place], [place] [phone] Clinic, [facility] [address] [place] [address] 06/23/2024 9:00 AM EDT Office Visit Gynecology/Obstetrics [place] [address] [place] [address] Tracey Franco CRNP [address] [place] [address] [place], Non Stress Tests [facility] [address] [place] [address] 06/23/2024 10:30 AM EDT Imaging Radiology [place] 2nd Floor, [place] [address] [place] [address] 06/30/2024 10:00 AM EDT Office Visit Gynecology/Obstetrics [place] [address] [place] [address] Tracey Franco CRNP [address] [place] [address] [place], Non Stress Tests [facility] [address] [place] [address] Scheduled Orders Name Type Priority Associated Diagnoses [...] antepartum documented in this encounter Care Teams Assistant Golf Coach Relationship Specialty Start Date End Date Vonda Lynn DO [address] [facility] 2 [place] [address] PCP - General Family Medicine 03/18/22 documented as of this encounter
--- OUTSIDE RECORDS SUMMARY | 2024-07-01 09:43 | External Medical Summary | Summary of Care ---
Author Name Unknown Organization [facility] Address [address] [place] [address] Phone [phone] Care Team Providers Care Design Printer Balloon Name Role Phone Vonda Lynn DO Primary Care Provider +1- [phone] Reason for Visit * Reason Onset Date Comments Medication Pre-auth 05/18/2024 InFed Encounter Details Date Type Department Care Team (Late st Contact Info) Description 05/18/2024 Telephone Hematology/Oncology Treatment, [place] [address] [place] [address] Backer, KATALINA John [address] [facility] [address] Medication Pre-auth (InFed) Allergies No known active allergiesdocumented as of [...] thus far TDAP given 07/23/19. Christen Keith, FREEZER ASSISTANT Closed fracture of metatarsal bone 10/11/2008 11/29/2020 [...] money to get more. Never true 06/2024 [place] Depression Scale Answer Date Recorded [place] Depression Scale Total 16 04/16/2024 The thought [...] on file documented as of this encounter Miscellaneous Notes * Telephone Encounter - Velma Bonner OSA - 06/09/2024 3:43 PM EDT Called was able to schedule pt is scheduled for was offered this Friday and pt declined * Telephone Encounter - Celine Demarco RN - 06/09/2024 3:26 PM EDT Received message from anemia clinic- patient thought she was waiting for a call from us to schedule. They did provide our phone number to patient to call in herself. Scheduling: can you please try 1 more time to call patient/ leave message if cannot reach her? * Telephone Encounter - Katherin Jensen RN - 05/21/2024 10:58 AM EDT Patient has upcoming appt next week. Patient has not responded to any calls or messages. Note in stickynote to remind patient at visit * Telephone Encounter - Gustavo Perez RN - 05/21/2024 10:44 AM EDT Stephanie/CATERER'S AIDE- FYI, please reach out to patient to see if she wishes to proceed as our office has been unable to reach her. Thanks. * Telephone Encounter - Velma Bonner OSA - 05/21/2024 9:40 AM EDT My g sent again and left message This is 3rd attempt FYI nursing * Telephone Encounter - Velma Stack OSA - 05/20/2024 8:54 AM EDT lmom * Telephone Encounter - Velam Bonner OSA - 05/20/2024 8:50 AM EDT Left message * Telephone Encounter - Celine Demarco RN - 05/20/2024 8:03 AM EDT Scheduling: please call patient to schedule 3 hour appt "infed" (Stephanie Pennington). Thanks! * Telephone Encounter - Stephanie Barrera LPN - 05/18/2024 3:06 PM EDT Order received for infed. [place] plan [place] [phone]. Awaiting prior authorization before scheduling patient. documented in this encounter Plan of Treatment Upcoming Encounters Date Type Department Care Team (Late st Contact Info) Description 06/16/2024 9:15 AM EDT Office Visit Gynecology/Obstetrics [address] [place] [address] Tracey Franco CRNP [address] [place] [address] [place], Non Stress Tests [facility] [address] [place] [address] 06/16/2024 10:00 AM EDT Pharmacy Pharmacy, [place] [address] [place] [address] Clinic, [facility] [address] [place] [address] 06/18/2024 9:00 AM EDT Hem/Onc Treatment Hematology/Oncology Treatment, [place] [address] [place] [address] [place], Chair 10 Hem Onc Scenery [address] [place] [address] 06/23/2024 9:00 AM EDT Office Visit Gynecology/Obstetrics Maryana [facility]ila [address] [place] [address] Tracey Franco CRNP [address] [place] [address] [place] Non Stress Tests [place] [address] [place] [address] 06/30/2024 10:00 AM EDT Office Visit Gynecology/Obstetrics Maryana Avila [address] [place] [address] Tracey Franco CRNP [address] [place] [address] [place], Non Stress Tests [facility] [address] [place] [address] Health Maintenance Due Date Last Done Comments Depression Monitoring 02/03/2020 02/02/2019 COVID-19 Vaccine (24 season) 2023 01/26/2023, 01/04/2023 Influenza Vaccine (FLU [...] Not on filedocumented as of this encounter Care Teams Design Printer Balloon Relationship Specialty Start Date End Date Vonda Lynn DO [address] [facility] 2 [place] [address] PCP - General Family Medicine 03/18/22 documented as of this encounter
--- OUTSIDE RECORDS SUMMARY | 2024-07-01 09:43 | External Medical Summary | Summary of Care ---
Author Name Unknown Organization [facility] Address [address] [place] [address] Phone [phone] Care Team Providers Care Tooling Inspector Name Role Phone Vonda Lynn DO Primary Care Provider +1- [phone] Reason for Visit * Reason Comments Return Visit Non Stress Test Encounter Details Date Type Department Care Team (Late st Contact Info) Description 06/23/2024 9:00 AM EDT Office Visit Gynecology/Obstetric s Maryana Avila [address] [facility] [place] [address] Tracey Franco CRNP [address] [place] [address] [place] Non Stress Tests [place] [address] [facility] [place] [address] High-risk in third trimester*; Rh negative, antepartum; History of delivery of macrosomal infant; History of shoulder dystocia in prior ; Obesity in , antepartum; Umbilical cord cyst during , antepartum; Depression affecting ; Antepartum anemia complicating Allergies No known active allergiesdocumented as of this encounter (statuses as of 06/23/2024) Medications Medication Sig Dispensed Refills Start Date [...] as of this encounter (statuses as of 06/23/2024) Active Problems Problem Noted Date Diagnosed Date Iron deficiency anemia 05/18/2024 Antepartum anemia complicating 024 Food insecurity 03/08/2024 Overview: Per [facility] Protocol High-risk 12/15/2023 Last Assessment [...] as of this encounter (statuses as of 06/23/2024) Resolved Problems Problem Noted Date Diagnosed Date [...] needs or questions 08/09/2022 Katherin Persaud RN 10/14/22 Problem Action Taken Date entered Entered by Date resolved Current needs or questions Patient denies having any current needs or questions 08/23/2022 Katherin Persaud, MARIA E 08/23/2022 Obesity, Class II, BMI 35-39 .9, isolated (see actual BMI) 04/12/2022 12/15/2023 Overview: Early glucola NST weekly starting at 37w Normal 04/12/2022 12/15/2023 Late care 07/23/2019 Overview: NOB at 30w. No care thus far TDAP given 07/23/19. Christen Keith LPN Closed fracture of metatarsal bone 10/11/2008 11/29/2020 Overview: ICD-10 update of inactive term documented as of this encounter (statuses as of 06/23/2024) Immunizations Name Administration Dates Next Due DTaP [...] money to get more. Never true 06/2024 [place] Depression Scale Answer Date Recorded [place] Depression Scale Total 16 04/16/2024 The thought [...] Sign Reading Time Taken Comments Blood Pressure 106/62 06/23/2024 8:59 AM EDT Pulse - - Temperature - - Respiratory Rate - - Oxygen Saturation - - Inhaled Oxygen Concentration - - Weight 128.8 kg (284 lb) 06/23/2024 8:59 AM EDT Height 172.7 cm (5' 8") 06/23/2024 8:59 AM EDT Body Mass Index 43.18 06/23/2024 8:59 AM EDT documented in this encounter Progress Notes * Tracey Franco CRNP - 06/23/2024 9:35 AM EDT 38w2d Feeling well. Baby is very active. No contractions, bleeding, LOF. Growth u/s after visit today. IOL 07/01. ASSESSMENT assessment with Non-stress Test completed on 06/23/2024 at 38.2weeks gestation for indication of obesity heart baseline: 130 bpm Variability: Moderate Decelerations: absent Accelerations: present Contractions: None NST start time: 2038 (per time stamp on NST machine) NST stop time: 2104 NST strip reviewed, interpreted, and approved by OB Tracey anderson CRNP . NST strip stored in clinic storage file documented in this encounter Nursing Notes * Mia Cabral LPN - 06/23/2024 9:06 AM EDT 38w2d NST, DORA documented in this encounter Plan of Treatment Upcoming Encounters Date Type Department Care Team (Late st Contact Info) Description 06/23/2024 10:30 AM EDT Imaging Radiology [facility] 2nd Floor, [place] [address] [place] [address] Obesity in , antepartum 06/30/2024 10:00 AM EDT Office Visit Gynecology/Obstetric s [facility] [address] [place] [address] Tracey Franco CRNP [address] [place] [address] [facility], Non Stress Tests [facility] [address] [place] [address] Health Maintenance Due Date Last Done Comments Depression Monitoring 02/03/2020 02/02/2019 COVID-19 Vaccine ( season) 2023 01/26/2023, 01/04/2023 Influenza Vaccine (FLU shot) (#1) 2024 07/12/2022, 07/12/2022, 07/23/2019, Additional history exists Gonorrhea / Chlamydia Screen 12/15/2024, 04/12/2022, 07/23/2019 Pap Smear 04/12/2025 04/12/2022 DTap/Tdap Vaccines (11 - Td or Tdap) 04/16/2034 [...] Diagnosis High-risk in third trimester- Primary Rh negative, antepartum Rhesus isoimmunization affecting management of mother, antepartum condition History of delivery of macrosomal History of shoulder dystocia in prior Obesity in , antepartum Obesity complicating , childbirth, or the puerperium, antepartum condition or complication Umbilical cord cyst during , antepartum Depression affecting Antepartum anemia complicating Anemia, antepartum Obesity in , antepartum Obesity complicating , childbirth, or the puerperium, antepartum condition or complication documented in this encounter Care Teams Tooling Inspector Relationship Specialty Start Date End Date Vonda Lynn DO [address] [facility] 2 [place] [address] PCP - General Family Medicine 03/18/22 documented as of this encounter
--- OUTSIDE RECORDS SUMMARY | 2024-07-01 09:43 | External Medical Summary | Summary of Care ---
Author Name Unknown Organization [facility] Address [address] [place] [address] Phone [phone] Care Team Providers Care Strapper Operator Name Role Phone Vonda Lynn DO Primary Care Provider +1- [phone] Reason for Visit * Reason Onset Date Comments Anemia Follow-Up 06/22/2024 Encounter Details Date Type Department Care Team (Late st Contact Info) Description 06/22/2024 10:00 AM EDT Pharmacy Pharmacy, [place] [address] [place] [address] Clinic, [facility] [address] [place] [address] Iron deficiency anemia, unspecified iron deficiency anemia type* Allergies No known active allergiesdocumented as of this encounter (statuses as of 06/22/2024) Medications Medication Sig Dispensed Refills Start Date [...] as of this encounter (statuses as of 06/22/2024) Active Problems Problem Noted Date Diagnosed Date [...] as of this encounter (statuses as of 06/22/2024) Resolved Problems Problem Noted Date Diagnosed Date [...] thus far TDAP given 07/23/19. Christen Keith, PHOTOGRAPHER STILL Closed fracture of metatarsal bone 10/11/2008 11/29/2020 Overview: ICD-10 update of inactive term documented as of this encounter (statuses as of 06/22/2024) Immunizations Name Administration Dates Next Due DTaP [...] money to get more. Never true 06/2024 [place] Depression Scale Answer Date Recorded [place] Depression Scale Total 16 04/16/2024 The thought [...] this encounter Progress Notes * Ivis Mckeon [facility] - 06/22/2024 3:25 PM EDT Patient Phone Numbers Call to patient. Patient received Infed on 06/18 . Patient reports tolerating infusion good. GA: 38w1d Estimated Date of Delivery: 07/05/24 Given proximity to patient's due date, will not repeat any additional lab work. Anemia Clinic will sign off. Thank you for allowing us to participate in the care of this patient. Thanks, Ivis Mckeon [facility] Clinical Pharmacist [facility] (P: [phone]) 06/22/2024 3:25 PM documented in this encounter Plan of Treatment Upcoming Encounters Date Type Department Care Team (Late st Contact Info) Description 06/23/2024 9:00 AM EDT Office Visit Gynecology/Obstetrics [facility] [place] [address] [place] [address] Tracey Franco CRNP [address] [place] [address] [place]ila Stress Tests [place] [address] [place] [address] 06/23/2024 10:30 AM EDT Imaging Radiology [facility] [facility] [place] [address] [place] [address] 06/30/2024 10:00 AM EDT Office Visit Gynecology/Obstetrics Maryana [facility] [address] [place] [address] Tracey Franco CRNP [address] [place] [address] [place], Non Stress Tests [place] [address] [place] [address] Health Maintenance Due Date Last Done Comments [...] Primary documented in this encounter Care Teams Strapper Operator Relationship Specialty Start Date End Date Vonda Lynn DO [address] [facility] 2 [place] [address] PCP - General Family Medicine 03/18/22 documented as of this encounter
--- OUTSIDE RECORDS SUMMARY | 2024-07-01 09:44 | External Medical Summary | Summary of Care ---
Author Name Unknown Organization [facility] Address [address] [place] [address] Phone [phone] Care Team Providers Care Field Pipe Lines Supervisor Name Role Phone Vonda Lynn DO Primary Care Provider +1- [phone] Encounter Details Date Type Department Care Team (Late st Contact Info) Description 06/09/2024 Telephone Gynecology/Obstetrics [place] [facility] [address] [place] [address] Tracey Franco CRNP [address] [place] [address] Allergies No known active allergiesdocumented as of [...] thus far TDAP given 07/23/19. Christen Keith, TRACY Closed fracture of metatarsal bone 10/11/2008 11/29/2020 [...] money to get more. Never true 06/2024 [place] Depression Scale Answer Date Recorded [place] Depression Scale Total 16 04/16/2024 The thought [...] encounter Miscellaneous Notes * Telephone Encounter - Mia Cabral LPN - 06/09/2024 3:15 PM EDT Patient aware and okay with this. * Telephone Encounter - Courtney Richardson RN - 06/09/2024 1:48 PM EDT Pt was scheduled for IOL on 06/30 but due to scheduling conflict, her induction needs to be moved to 07/01. All other instructions will remain the same. left message for patient to call office documented in this encounter Plan of Treatment Upcoming Encounters Date Type Department Care Team (Late st Contact Info) Description 06/16/2024 9:15 AM EDT Office Visit Gynecology/Obstetrics [facility] [address] [place] [address] Tracey Franco CRNP [address] [place] [address] [place] Avila Stress Tests [place] [address] [place] [address] 06/16/2024 10:00 AM EDT Pharmacy Pharmacy, [place] [address] [place], [place] [phone] [place] [address] [place] [address] 06/23/2024 9:00 AM EDT Office Visit Gynecology/Obstetrics [facility] [address] [place] [address] Tracey Franco CRNP [address] [place], [place] [address] [place], Non Stress Tests [place] [address] [place] [address] 06/30/2024 10:00 AM EDT Office Visit Gynecology/Obstetrics [facility] [address] [place] [address] Tracey Franco CRNP [address] [place], [place] [address] [place], Non Stress Tests [place] [address] [place] [address] Health Maintenance Due Date Last Done Comments [...] filedocumented as of this encounter Care Teams Field Pipe Lines Supervisor Relationship Specialty Start Date End Date Vonda Lynn DO [address] [facility] 2 [place] [address] PCP - General Family Medicine 03/18/22 documented as of this encounter
--- OUTSIDE RECORDS SUMMARY | 2024-07-01 09:44 | External Medical Summary | Summary of Care ---
Author Name Unknown Organization [facility] Address [address] [place] [address] Phone [phone] Care Team Providers Care Dispensary Clerk Name Role Phone Vonda Lynn DO Primary Care Provider +1- [phone] Reason for Visit * Reason Onset Date Comments Anemia Follow-Up 06/01/2024 Encounter Details Date Type Department Care Team (Late st Contact Info) Description 06/02/2024 10:00 AM EDT Pharmacy Pharmacy, [place] [address] [place] [address] Clinic, Anemia [address] [place] [address] Iron deficiency anemia, unspecified iron deficiency anemia type* Allergies No known active allergiesdocumented as of this encounter (statuses as of 06/01/2024) Medications Medication Sig Dispensed Refills Start Date [...] as of this encounter (statuses as of 06/01/2024) Active Problems Problem Noted Date Diagnosed Date [...] as of this encounter (statuses as of 06/01/2024) Resolved Problems Problem Noted Date Diagnosed Date [...] thus far TDAP given 07/23/19. Christen Keith, QUALITY ASSURANCE CALIBRATOR Closed fracture of metatarsal bone 10/11/2008 11/29/2020 Overview: ICD-10 update of inactive term documented as of this encounter (statuses as of 06/01/2024) Immunizations Name Administration Dates Next Due DTaP [...] money to get more. Never true 06/2024 [place] Depression Scale Answer Date Recorded [place] Depression Scale Total 16 04/16/2024 The thought [...] this encounter Progress Notes * Ivis Mckeon [facility] - 06/01/2024 4:14 PM EDT Patient has not received first dose of Infed. Scheduled to be completed: TBA GA: 35w1d Estimated Date of Delivery: 07/05/24 Follow-up after completion of series to schedule repeat labs if appropriate prior to delivery. Anemia Clinic will continue to follow. Thank you for allowing us to participate in the care of thispatient. Thanks, Ivis Mckeon [facility] Clinical Pharmacist [facility]emia [facility] (P: [phone]) 06/01/2024 4:17 PM documented in this encounter Plan of Treatment Upcoming Encounters Date Type Department Care Team (Late st Contact Info) Description 06/02/2024 10:45 AM EDT Office Visit Gynecology/Obstetrics Maryana [facility] [address] [place] [address] Stephanie Riacrdo CRNP [address] [place] [address] [place], Non Stress Tests [place] [address] [place] [address] 06/09/2024 9:00 AM EDT Office Visit Gynecology/Obstetrics Maryana [facility] [address] [place] [address] Tracey Franco CRNP [address] [place] [address] [place], Non Stress Tests [facility] [address] [place] [address] 06/09/2024 10:00 AM EDT Pharmacy Pharmacy, [place] [address] [place] [address] Clinic, [place] [address] [place] [address] 06/16/2024 9:15 AM EDT Office Visit Gynecology/Obstetrics [place] [address] [place] [address] Tracey Franco CRNP [address] [place] [address] [place] Non Stress Tests [facility] [address] [place] [address] 06/23/2024 9:00 AM EDT Office Visit Gynecology/Obstetrics [place] [address] [place] [address] Tracey Franco CRNP [address] [place] [address] [place], Non Stress Tests [facility] [address] [place] [address] 06/30/2024 10:00 AM EDT Office Visit Gynecology/Obstetrics [place]oe [place] [address] [place] [address] Tracey Franco CRNP [address] [place] [address] [place], Non Stress Tests [facility] [address] [place] [address] Health Maintenance Due Date Last Done Comments [...] Primary documented in this encounter Care Teams Dispensary Clerk Relationship Specialty Start Date End Date Vonda Lynn DO [address] [address] PCP - General Family Medicine 03/18/22 documented as of this encounter
--- OUTSIDE RECORDS SUMMARY | 2024-07-01 09:44 | External Medical Summary | Summary of Care ---
Author Name Unknown Organization [facility] Address [address] [place] [address] Phone [phone] Care Team Providers Care Scientologist Name Role Phone Vonda Lynn DO Primary Care Provider +1- [phone] Reason for Visit * Reason Comments Return Visit Non Stress Test Encounter Details Date Type Department Care Team (Late st Contact Info) Description 05/26/2024 10:45 AM EDT Office Visit Gynecology/Obstetric s [facility] [address] [facility] [address] Marian Hall, DNP, CNM [address] [place] [address] [place] Non Stress Tests [facility] [address] [facility] [address] History of delivery of macrosomal infant*; High risk , antepartum; History of shoulder dystocia in prior ; Obesity in , antepartum; Umbilical cord cyst during , antepartum; Depression affecting ; Antepartum anemia complicating ; High risk , antepartum [O09.90] Allergies No known active allergiesdocumented as of this encounter (statuses as of 05/26/2024) Medications Medication Sig Dispensed Refills Start Date [...] as of this encounter (statuses as of 05/26/2024) Active Problems Problem Noted Date Diagnosed Date [...] as of this encounter (statuses as of 05/26/2024) Resolved Problems Problem Noted Date Diagnosed Date [...] having any current needs or questions 08/23/2022 aKtherin Persaud RN 08/23/2022 Obesity, Class II, BMI [...] as of this encounter (statuses as of 05/26/2024) Immunizations Name Administration Dates Next Due DTaP [...] money to get more. Never true 06/2024 [place] Depression Scale Answer Date Recorded [place] Depression Scale Total 16 04/16/2024 The thought [...] Sign Reading Time Taken Comments Blood Pressure 116/64 05/26/2024 11:24 AM EDT Pulse - - Temperature - - Respiratory Rate - - Oxygen Saturation - - Inhaled Oxygen Concentration - - Weight 127.5 kg (281 lb) 05/26/2024 11:24 AM EDT Height - - Body Mass Index 42.73 12/15/2023 9:53 AM EST documented in this encounter Progress Notes * Marian Hall, BRYSON, CNM - 05/26/2024 12:45 PM EDT Augustina Hawley is a 23 year old female here for her routine OB appointment at 34w2d Her Estimated Date of Delivery: 07/05/24 REVIEW OF SYSTEMS: She affirms movement. Denies vaginal bleeding, LOF, contractions, N/V, headaches. PHYSICAL EXAM: Filed Vitals: 05/26/24 1124 BP: 116/64 Weight: 127.5 kg (281 lb) ASSESSMENT assessment with Non-stress Test completed on 05/26/2024 at 34.2 weeks gestation for indicationof obesity heart baseline: 125 bpm Variability: Moderate Decelerations: absent Accelerations: present Contractions: None NST start time: 1130 NST stop time: 1153 NST strip reviewed, interpreted, and approved by OB provider, Marian Hall DNP, CNM. NST strip stored in clinic storage file ASSESSMENT/PLAN: (O09.90) High-risk Plan: Weekly NSTs ((O99.019) Antepartum anemia complicating Plan: - 05/18/24 anemia clinic reached out to pt, they will schedule venofer infusions. - discussed GBS and to expect swab to be complete at next visit - labor precautions and kick counts reviewed - RTO in 1 weeks Marian Hall DNP, CNM * Pita Lubin MED ASSIST - 05/26/2024 11:24 AM EDT 34w2d Denies vaginal bleeding/rom + movements No concerns documented in this encounter Plan of Treatment Upcoming Encounters Date Type Department Care Team (Late st Contact Info) Description 05/28/2024 2:00 PM EDT Imaging Radiology [facility] 2nd [facility] [address] [place] [address] 06/02/2024 10:00 AM EDT Pharmacy Pharmacy, [place] [address] [place] [address] Clinic, [facility] [address] [place] [address] 06/09/2024 9:00 AM EDT Office Visit Gynecology/Obstetrics [facility] [address] [place] [address] Tracey Franco CRNP [address] [place] [address] [facility] [address] [place] [address] 06/16/2024 9:15 AM EDT Office Visit Gynecology/Obstetrics Maryana Avila [address] [place] [address] Tracey Franco CRNP [address] [place] [address] [place], Non Stress Tests [facility] [address] [place] [address] 06/23/2024 9:00 AM EDT Office Visit Gynecology/Obstetrics Maryana [facility] [address] [place] [address] Tracey Franco CRNP [address] [place] [address] [place] Non Stress Tests [facility] [address] [place] [address] 06/30/2024 10:00 AM EDT Office Visit Gynecology/Obstetrics Maryana [facility] [address] [place] [address] Tracey Franco CRNP [address] [place] [address] [place], Non Stress Tests [facility] [address] [place] [address] Health Maintenance Due Date Last Done Comments [...] 11/11/2012, 2011 MENINGOCOCCAL (MENACTRA/MENVEO) Completed 01/23/2017, 2011 HIV Screening Completed 12/15/2023, 03/27, 07/23/2019 Hepatitis C Screening Completed 12/15/2023 , 12/15/2023, 12/15/2023, Additional history exists Pneumococcal Vaccine: Pediatrics (0 to 5 Years) and At-Risk Patients (6 to 64 Years) Aged Out No longer eligible based on patient's age to complete this topic documented as of this encounter Medical Devices Not on filedocumented as of this encounter Visit Diagnoses Diagnosis History of delivery of macrosomal - Primary High risk , antepartum [O09.90] History of shoulder dystocia in prior Obesity in , antepartum Obesity complicating , childbirth, or the puerperium, antepartum condition or complication Umbilical cord cyst during , antepartum Depression affecting Antepartum anemia complicating Anemia, antepartum documented in this encounter Care Teams Scientologist Relationship Specialty Start Date End Date Vonda Lynn DO [address] [facility] [address] [place] [address] PCP - General Family Medicine 03/18/22 documented as of this encounter
--- OUTSIDE RECORDS SUMMARY | 2024-07-01 09:44 | External Medical Summary | Summary of Care ---
Author Name Unknown Organization [facility] Address [address] [place] [address] Phone [phone] Care Team Providers Care Quality Control Lab Tech Name Role Phone Vonda Lynn DO Primary Care Provider +1- [phone] Reason for Visit * Reason Comments Return Visit Non Stress Test Encounter Details Date Type Department Care Team (Late st Contact Info) Description 06/09/2024 9:00 AM EDT Office Visit Gynecology/Obstetric s Maryana [facility] [address] [facility] [place] [address] Tracey Franco CRNP [address] [place] [address] [place] Non Stress Tests [place] [address] [place] [address] High-risk in third trimester*; Rh negative, antepartum; [...] complicating 024 Food insecurity 03/08/2024 Overview: Per [facility] Protocol High-risk 12/15/2023 Last Assessment [...] DTaP Dipth/Tet/Acell Pertussis (Infanrix), Peds 02/12/2006,01/11/2002,04/17/2001,02/10,2000 H1N1 2008 Influenza, Intranasal 09/08/2009 HIB PRP-T, 4 Dose, [...] money to get more. Never true 06/2024 [place] Depression Scale Answer Date Recorded [place] Depression Scale Total 16 04/16/2024 The thought [...] Sign Reading Time Taken Comments Blood Pressure 120/72 06/09/2024 9:14 AM EDT Pulse - - Temperature - - Respiratory Rate - - Oxygen Saturation - - Inhaled Oxygen Concentration - - Weight 127.6 kg (281 lb 3.2 oz) 06/09/2024 9:14 AM EDT Height - - Body Mass Index 42.76 12/15/2023 9:53 AM EST documented in this encounter Progress Notes * Tracey Franco CRNP - 06/09/2024 9:56 AM EDT 36w2d No concerns. Baby is active. Feeling pressure, no contractions. No bleeding or LOF. GBS done today. Deaf Interpreter Documentation Provider requested silk screen printing racker. Name of silk screen printing racker: Pita ASSESSMENT assessment with Non-stress Test completed on 06/09/2024 at 36.2weeks gestation for indication of obesity heart baseline: 120 bpm Variability: Moderate Decelerations: absent Accelerations: present Contractions: None NST start time: 1409 NST stop time: 1446 NST strip reviewed, interpreted, and approved by OB provider, KATALINA Vences . NST strip stored in clinic storage file * Pita Lubin MED ASSIST - 06/09/2024 9:15 AM EDT Patient present today for NST/DORA 36w2d Denies vaginal bleeding/rom + movements + headaches, mild. Manageable with tylenol GBS swab today documented in this encounter Plan of Treatment Upcoming Encounters Date Type Department Care Team (Late st Contact Info) Description 06/16/2024 9:15 AM EDT Office Visit Gynecology/Obstetrics [place] [address] [place] [address] Tracey Franco CRNP [address] [place] [address] [place] Non Stress Tests [facility] [address] [place] [address] 06/23/2024 9:00 AM EDT Office Visit Gynecology/Obstetrics Maryana [place] [address] [place] [address] Tracey Franco CRNP [address] [place] [address] [place] Non Stress Tests [facility] [address] [place] [address] 06/30/2024 10:00 AM EDT Office Visit Gynecology/Obstetrics Maryana [place] [address] [place] [address] Tracey Franco CRNP [address] [place] [address] [place], Non Stress Tests [facility] [address] [place] [address] Pending Results Name Type Priority Associated Diagnoses Date /Time GROUP B STREP CULTURE/PCR Lab Routine High-risk in third trimester 06/09/2024 10:04 AM EDT Scheduled Orders Name Type Priority Associated Diagnoses Orde r Schedule GROUP B STREP CULTURE/PCR Lab Routine High-risk in third trimester Expected: 06/09/2024, Expires: 06/09/2025 Health Maintenance Due Date Last Done Comments [...] antepartum condition History of delivery of macrosomal infant History of shoulder dystocia in prior Obesity in , antepartum Obesity complicating , childbirth, or the puerperium, antepartum condition or complication Umbilical cord cyst during , antepartum Depression affecting Antepartum anemia complicating Anemia, antepartum documented in this encounter Care Teams Quality Control Lab Tech Relationship Specialty Start Date End Date Vonda Lynn DO [address] [facility] 2 [place] [address] PCP - General Family Medicine 03/18/22 documented as of this encounter
--- OUTSIDE RECORDS SUMMARY | 2024-07-01 09:44 | External Medical Summary ---
Author Name Unknown Address Unknown Organization K01:[facility] - [address] [place] [address] Laboratory Report Ordering Provider Test Date Status RELL VELASQUEZ 06/09/2024 10:04:39 Final Observation Date Value Abnormality Reference (Units ) Status Streptococcus agalactiae DNA [Presence] in Specimen by ROHIT with probe detection 06/09/2024 10:04:39 Negative Negative Final No Group B Streptococcus det ected by culture-enhanced PCR (amplified probe). GBS GBSCT - [facility] 06/09/2024 10:04:39 0.0 Final GBS SPCCT - [facility] 06/09/2024 10:04:39 31.1 Final Performing Location [facility] - [address] [place] [address]
--- OUTSIDE RECORDS SUMMARY | 2024-07-01 09:44 | External Medical Summary | Summary of Care ---
Author Name Unknown Organization [facility] Address [address] [place] [address] Phone [phone] Care Team Providers Care Sales Agent Marine Insurance Name Role Phone Vonda Lynn DO Primary Care Provider +1- [phone] Reason for Visit * Reason Onset Date Comments Medication Pre-auth 05/18/2024 InFed Encounter Details Date Type Department Care Team (Late st Contact Info) Description 05/18/2024 Telephone Hematology/Oncology Treatment, [place] [address] [place] [address] [place], KATALINA John [address] [facility] [address] Medication Pre-auth (InFed) Allergies No known active [...] thus far TDAP given 07/23/19. Christen Keith, NIGHT CLERK Closed fracture of metatarsal bone 10/11/2008 11/29/2020 [...] money to get more. Never true 06/2024 [place] Depression Scale Answer Date Recorded [place] Depression Scale Total 16 04/16/2024 The thought [...] encounter Miscellaneous Notes * Telephone Encounter - Celine Demarco RN [...] Perez RN - 05/21/2024 10:44 AM EDT Stephanie/SENIOR LIVING SALES COUNSELOR- HPILI, please reach out to patient to see [...] AM EDT lmom * Telephone Encounter - Velma Bonner OSA - 05/20/2024 8:50 AM EDT Left message * Telephone Encounter - Celine Demarco RN - 05/20/2024 8:03 AM EDT Scheduling: please call patient to schedule 3 hour appt "infed" (Stephanie Pennington). Thanks! * Telephone Encounter - Stephanie Barrera LPN - 05/18/2024 3:06 PM EDT Order received for infed. [place] plan built [place] [phone]. Awaiting prior authorization before scheduling patient. documented in this encounter Plan of Treatment Upcoming Encounters Date Type Department Care Team (Late st Contact Info) Description 06/16/2024 9:15 AM EDT Office Visit Gynecology/Obstetrics Maryana [facility] [address] [place] [address] Tracey Franco CRNP [address] [place] [address] [place] Non Stress Tests [facility] [address] [place] [address] 06/16/2024 10:00 AM EDT Pharmacy Pharmacy, [place] [address] [place] [address] Clinic, [facility] [address] [place] [address] 06/23/2024 9:00 AM EDT Office Visit Gynecology/Obstetrics Maryana [facility]ila [address] [place] [address] Tracey Franco CRNP [address] [place] [address] [place] Avila Stress Tests [facility] [address] [place] [address] 06/30/2024 10:00 AM EDT Office Visit Gynecology/Obstetrics Maryana [facility] [address] [place] [address] Tracey Franco CRNP [address] [place] [address] [place] Avila Stress Tests [facility] [address] [place] [address] Health Maintenance Due Date Last Done Comments [...] filedocumented as of this encounter Care Teams Sales Agent Marine Insurance Relationship Specialty Start Date End Date Vonda Lynn DO [address] [facility] 2 [place] [address] PCP - General Family Medicine 03/18/22 documented as of this encounter
--- OUTSIDE RECORDS SUMMARY | 2024-07-01 09:44 | External Medical Summary | Summary of Care ---
Author Name Unknown Organization [facility] Address [address] [place] [address] Phone [phone] Care Team Providers Care Manager Printing Name Role Phone Vonda Lynn DO Primary Care Provider +1- [phone] Reason for Visit * Reason Onset Date Comments Anemia Follow-Up 06/09/2024 Encounter Details Date Type Department Care Team (Late st Contact Info) Description 06/09/2024 10:00 AM EDT Pharmacy Pharmacy, [place] [address] [place] [address] Clinic, Anemia [address] [place] [address] Iron deficiency anemia, unspecified iron deficiency anemia [...] thus far TDAP given 07/23/19. Christen Keith, BRANCH MECHANIC Closed fracture of metatarsal bone 10/11/2008 11/29/2020 [...] money to get more. Never true 06/2024 [place] Depression Scale Answer Date Recorded [place] Depression Scale Total 16 04/16/2024 The thought [...] of Infed. Provided patient with number to [facility]. Also messaged infusion center. Scheduled to be completed: TBA GA: 36w2d Estimated Date of Delivery: 07/05/24 Follow-up after completion of series to schedule repeat labs if appropriate prior to delivery. Anemia Clinic will continue to follow. Thank you for allowing us to participate in the care of thispatient. Thanks, Ivis Mckeon [facility] Clinical Pharmacist [facility] Anemia Clinic (P: [phone]) documented in this encounter Plan of Treatment Upcoming Encounters Date Type Department Care Team (Late st Contact Info) Description 06/16/2024 9:15 AM EDT Office Visit Gynecology/Obstetrics Maryana [facility] [address] [place] [address] Tracey Franco CRNP [address] [place] [address] Mely Avila Stress Tests [facility] [address] [place] [address] 06/16/2024 10:00 AM EDT Pharmacy Pharmacy, [place] [address] [place] [address] Clinic, [facility] [address] [place] [address] 06/23/2024 9:00 AM EDT Office Visit Gynecology/Obstetrics [facility] [address] [place] [address] Tracey Franco CRNP [address] [place] [address] [place], Non Stress Tests [facility] [address] [place] [address] 06/30/2024 10:00 AM EDT Office Visit Gynecology/Obstetrics Maryana [facility] [address] [place] [address] Tracey Franco CRNP [address] [place] [address] M[place] Avila Stress Tests [facility] [address] [place] [address] Health Maintenance Due Date Last Done Comments [...] Primary documented in this encounter Care Teams Manager Printing Relationship Specialty Start Date End Date Vonda Lynn DO [address] [facility] 2 [place] [address] PCP - General Family Medicine 03/18/22 documented as of this encounter
--- OUTSIDE RECORDS SUMMARY | 2024-07-01 09:44 | External Medical Summary | Summary of Care ---
Author Name Unknown Organization [facility] Address [address] [place] [address] Phone [phone] Care Team Providers Care Diesel Powerplant Mechanic Helper Name Role Phone Vonda Lynn DO Primary Care Provider +1- [phone] Reason for Visit * Reason Comments Return Visit Non Stress Test Encounter Details Date Type Department Care Team (Late st Contact Info) Description 06/09/2024 9:00 AM EDT Office Visit Gynecology/Obstetric s Maryana [facility]ila [address] [facility] [place] [address] Tracey Franco CRNP [address] [place] [address] [place] Non Stress Tests [facility] [address] [place] [address] High-risk in third trimester*; Rh negative, antepartum; [...] complicating 024 Food insecurity 03/08/2024 Overview: Per [facility] Protocol High-risk 12/15/2023 Last Assessment [...] money to get more. Never true 06/2024 [place] Depression Scale Answer Date Recorded [place] Depression Scale Total 16 04/16/2024 The thought [...] No bleeding or LOF. GBS done today. Yarding Engineer Documentation Provider requested brazer furnace. Name of brazer furnace: Pita ASSESSMENT assessment with Non-stress Test completed [...] [place] [address] [place] [address] Tracey Franco CRNP [address] [place] [address] [place] Non Stress Tests [facility] [address] [place] [address] 06/23/2024 9:00 AM EDT Office Visit Gynecology/Obstetrics Maryana [place]ungs [address] [place] [address] Tracey Franco CRNP [address] [place] [address] [place] Non Stress Tests [facility] [address] [place] [address] 06/30/2024 10:00 AM EDT Office Visit Gynecology/Obstetrics Maryana [place]ungs [address] [place] [address] Tracey Franco CRNP [address] [place] [address] [place], Non Stress Tests [facility] [address] [place] [address] Pending Results Name Type Priority Associated Diagnoses [...] antepartum documented in this encounter Care Teams Diesel Powerplant Mechanic Helper Relationship Specialty Start Date End Date Vonda Lynn DO [address] [facility] 2 [place] [address] PCP - General Family Medicine 03/18/22 documented as of this encounter
--- OUTSIDE RECORDS SUMMARY | 2024-07-01 09:45 | External Medical Summary | Summary of Care ---
Author Name Unknown Organization [facility] Address [address] [place] [address] Phone [phone] Care Team Providers Care Np Name Role Phone Vonda Lynn DO Primary Care Provider +1- [phone] Reason for Visit * Reason Onset Date Comments Anemia Follow-Up 05/18/2024 Encounter Details Date Type Department Care Team (Late st Contact Info) Description 05/18/2024 4:00 PM EDT Pharmacy Pharmacy, [place] [address] [place] [address] Clinic, Anemia [address] [place] [address] Iron deficiency anemia, unspecified iron deficiency anemia type* Allergies No known active allergiesdocumented as of this encounter (statuses as of 05/18/2024) Medications Medication Sig Dispensed Refills Start Date [...] as of this encounter (statuses as of 05/18/2024) Active Problems Problem Noted Date Diagnosed Date Antepartum anemia complicating 024 Food insecurity 03/08/2024 [...] as of this encounter (statuses as of 05/18/2024) Resolved Problems Problem Noted Date Diagnosed Date [...] as of this encounter (statuses as of 05/18/2024) Immunizations Name Administration Dates Next Due DTaP [...] money to get more. Never true 06/2024 Gunnison Depression Scale Answer Date Recorded Gunnison Depression Scale Total 16 04/16/2024 The thought [...] this encounter Progress Notes * Ivis Mckeon RPh - 05/18/2024 1:55 PM EDT Patient Phone Numbers Patient referred by KATALINA Hinojosa for evaluation of anemia by the Anemia Clinic. Called patient to introduce role/clinic and to review labs from 04/16. Hgb: 10.8 g/dL TSAT: 11 % Ferritin: 8 ng/mL B12: <150 pg/mL FA: 4.2 ng/mL GA: 33w1d Estimated Date of Delivery: 07/05/24 Hgb is below target range for the third trimester. Iron studies below target range. B12 level belowtarget range. FA level below target range. Oral iron replenishment inadequate or contraindicated. Patient qualifies for IV iron repletion. Plan: Iron dextran (INFeD) 1000 mg IV x 1 dose. Orders placed and routed to appropriate parties at [facility] if patient agreeable to intervention. Asked pt about history of asthma. Patient confirmed she does NOT have asthma. No pre-meds ordered. Follow-up labs to be scheduled ~4-6 weeks after iron repletion completed if appropriate prior to delivery. Anemia Clinic will continue to follow. Thank you for allowing us to participate in the care of thispatient. Thanks, Ivis Mckeon [facility] Clinical Pharmacist [facility]emia [facility] (P: [phone]) documented in this encounter Plan of Treatment Upcoming Encounters Date Type Department Care Team (Late st Contact Info) Description 05/21/2024 12:00 PM EDT Imaging Radiology [address], [address] [place] [address] 05/26/2024 9:45 AM EDT [facility] 2nd Floor, [place] [address] [place] [address] 05/26/2024 10:45 AM EDT Office [facility] [place] [address] [place] [address] Marian Hall, DNP, CNM 400 [facility] [place] [address] [facility], Non Stress Tests [facility] 132 [facility] [place] [address] 06/02/2024 10:00 AM EDT Pharmacy Pharmacy, [place] [address] [place] [address] Clinic, [place] [address] [place] [address] Health Maintenance Due Date Last Done Comments [...] Primary documented in this encounter Care Teams Np Relationship Specialty Start Date End Date Vonda Lynn DO [address] [address] PCP - General Family Medicine 03/18/22 documented as of this encounter
--- OUTSIDE RECORDS SUMMARY | 2024-07-01 09:45 | External Medical Summary | Summary of Care ---
Author Name Unknown Organization [facility] Address [address] [place] [address] Phone [phone] Care Team Providers Care Assembler For Puller Over Hand Name Role Phone Vonda Lynn DO Primary Care Provider +1- [phone] Reason for Visit * Reason Onset Date Comments Medication Pre-auth 05/18/2024 InFed Encounter Details Date Type Department Care Team (Late st Contact Info) Description 05/18/2024 Telephone Hematology/Oncology Treatment, [place] [address] [place] [address] Backer, KATALINA John [address] [facility] [address] Medication Pre-auth (InFed) Allergies No known active allergiesdocumented as of this encounter (statuses as of 05/21/2024) Medications Medication Sig Dispensed Refills Start Date [...] as of this encounter (statuses as of 05/21/2024) Active Problems Problem Noted Date Diagnosed Date [...] as of this encounter (statuses as of 05/21/2024) Resolved Problems Problem Noted Date Diagnosed Date [...] thus far TDAP given 07/23/19. Christen Keith, TIRE SPOTTER Closed fracture of metatarsal bone 10/11/2008 11/29/2020 Overview: ICD-10 update of inactive term documented as of this encounter (statuses as of 05/21/2024) Immunizations Name Administration Dates Next Due DTaP [...] money to get more. Never true 06/2024 Timpson Depression Scale Answer Date Recorded Timpson Depression Scale Total 16 04/16/2024 The thought [...] encounter Miscellaneous Notes * Telephone Encounter - Gustavo Perez RN - 05/21/2024 10:44 AM EDT Stephanie/REGISTERED NURSING PROFESSOR- FYI, please reach out to patient to [...] 3:06 PM EDT Order received for infed. [place] plan [place] routed to p [phone]. Awaiting prior authorization before scheduling patient. documented in this encounter Plan of Treatment Upcoming Encounters Date Type Department Care Team (Late st Contact Info) Description 05/21/2024 12:00 PM EDT Imaging Radiology [facility] [address] [place] [address] 05/26/2024 9:45 AM EDT Imaging Radiology [facility] 2nd [facility], [address] [place] [address] 05/26/2024 10:45 AM EDT Office Visit Gynecology/Obstetrics [address] [place] [address] Marian Hall, BRYSON, CNM [address] [place] [address] Mely Avila Stress Tests [address] [place] [address] 06/02/2024 10:00 AM EDT Pharmacy Pharmacy, [place] [address] [place] [address] Clinic, [phone] Health Maintenance Due Date Last Done Comments [...] filedocumented as of this encounter Care Teams Assembler For Puller Over Hand Relationship Specialty Start Date End Date Vonda Lynn DO [address] [address] PCP - General Family Medicine 03/18/22 documented as of this encounter
--- OUTSIDE RECORDS SUMMARY | 2024-07-01 09:45 | External Medical Summary | Summary of Care ---
Author Name Unknown Organization [facility] Address [address] [place] [address] Phone [phone] Care Team Providers Care Watermelon Harvesting Supervisor Name Role Phone Vonda Lynn DO Primary Care Provider +1- [phone] Reason for Visit * Reason Onset Date Comments Medication Pre-auth 05/18/2024 InFed Encounter Details Date Type Department Care Team (Late st Contact Info) Description 05/18/2024 Telephone Hematology/Oncology Treatment, [place] [address] [place] [address] Backer, KATALINA John [address] [facility] [address] Medication Pre-auth (InFed) Allergies No known active [...] No care thus far TDAP given 07/23/19. Chritsen Keith, READING INTERVENTIONIST Closed fracture of metatarsal bone 10/11/2008 11/29/2020 [...] money to get more. Never true 06/2024 [place] Depression Scale Answer Date Recorded [place] Depression Scale Total 16 04/16/2024 The thought [...] Perez RN - 05/21/2024 10:44 AM EDT Stephanie/DYE TUB TENDER- FYI, please reach out to patient to [...] 3:06 PM EDT Order received for infed. [place] plan [place] to p [id number]. Awaiting prior authorization before scheduling patient. documented in this encounter Plan of Treatment Upcoming Encounters Date Type Department Care Team (Late st Contact Info) Description 05/21/2024 12:00 PM EDT Imaging Radiology [facility] [address] [place] [address] 05/26/2024 9:45 AM EDT Imaging Radiology [facility] 2nd [facility], [address] [place] [address] 05/26/2024 10:45 AM EDT Office Visit Gynecology/Obstetrics [address] [place] [address] Marian Hall, BRYSON, CNM [address] [place] [address] Mely Avila Stress Tests [address] [place] [address] 06/02/2024 10:00 AM EDT Pharmacy Pharmacy, [place] [address] [place] [address] Clinic, [facility] [phone] Health Maintenance Due Date Last Done Comments [...] filedocumented as of this encounter Care Teams Watermelon Harvesting Supervisor Relationship Specialty Start Date End Date Vonda Lynn DO [address] [address] PCP - General Family Medicine 03/18/22 documented as of this encounter
--- OUTSIDE RECORDS SUMMARY | 2024-07-01 09:45 | External Medical Summary | Summary of Care ---
Author Name Unknown Organization [facility] Address [address] [place] [address] Phone [phone] Care Team Providers Care Bandsaw Operator Name Role Phone Vonda Lynn DO Primary Care Provider +1- [phone] Reason for Visit * Reason Onset Date Comments Medication Pre-auth 05/18/2024 InFed Encounter Details Date Type Department Care Team (Late st Contact Info) Description 05/18/2024 Telephone Hematology/Oncology Treatment, [place] [address] [place] [address] Backer, KATALINA John [address] [facility] [address] Medication Pre-auth (InFed) Allergies No known active [...] thus far TDAP given 07/23/19. Christen Keith, TECHNOLOGY COORDINATOR Closed fracture of metatarsal bone 10/11/2008 11/29/2020 [...] money to get more. Never true 06/2024 Felda Depression Scale Answer Date Recorded Felda Depression Scale Total 16 04/16/2024 The thought [...] encounter Miscellaneous Notes * Telephone Encounter - Stephanie Barrera LPN - 05/18/2024 3:06 PM EDT Order received for infed. [place] plan [place] p [id number]. Awaiting prior authorization before scheduling patient. documented in this encounter Plan of Treatment Upcoming Encounters Date Type Department Care Team (Late st Contact Info) Description 05/18/2024 4:00 PM EDT Pharmacy Pharmacy, [place] [address] [place] [address] Clinic, Anemia [address] [place] [address] Iron deficiency anemia, unspecified iron deficiency anemia type* 05/21/2024 12:00 PM EDT Imaging Radiology [facility] [address] [place] [address] 05/26/2024 9:45 AM EDT Imaging Radiology [facility] 2nd [facility], [place] 132 [facility] [place] [address] 05/26/2024 10:45 AM EDT Office Visit Gynecology/Obstetric s [address] [place] [address] Marian Hall, DNP, CNM 400 [facility] [place] [address] [place], Non Stress Tests [address] [place] [address] 06/02/2024 10:00 AM EDT Pharmacy Pharmacy, [place] [address] [place] [address] Clinic, [facility] [address] [place] [address] Health Maintenance Due Date Last Done Comments [...] filedocumented as of this encounter Care Teams Bandsaw Operator Relationship Specialty Start Date End Date Vonda Lynn DO [address] [facility] 2 [facility] [address] PCP - General Family Medicine 03/18/22 documented as of this encounter
--- OUTSIDE RECORDS SUMMARY | 2024-07-01 09:45 | External Medical Summary | Summary of Care ---
Author Name Unknown Organization [facility] Address [address] [place] [address] Phone [phone] Care Team Providers Care Shipping Point Inspector Name Role Phone Vonda Lynn DO Primary Care Provider +1- [phone] Reason for Visit * Reason Onset Date Comments Medication Pre-auth 05/18/2024 InFed Encounter Details Date Type Department Care Team (Late st Contact Info) Description 05/18/2024 Telephone Hematology/Oncology Treatment, [place] [address] [place] [address] Backer, KATALINA John [address] [facility] [address] Medication Pre-auth (InFed) Allergies No known active [...] thus far TDAP given 07/23/19. Christen Keith, PARTY PLAN DEALER Closed fracture of metatarsal bone 10/11/2008 11/29/2020 [...] money to get more. Never true 06/2024 [place]ol Depression Scale Answer Date Recorded [place]ol Depression Scale Total 16 04/16/2024 The thought [...] call patient to schedule 3 hour appt "daniela" (Stephanie Pennington). Thanks! * Telephone Encounter - Stephanie Barrera LPN - 05/18/2024 3:06 PM EDT Order received for infed. [place] plan [place] p [id number]. Awaiting prior authorization before scheduling patient. documented in this encounter Plan of Treatment Upcoming Encounters Date Type Department Care Team (Late st Contact Info) Description 05/21/2024 12:00 PM EDT Imaging Radiology [facility] 1st [facility], [address] [place] [address] 05/26/2024 9:45 AM EDT Imaging Radiology [facility] 2nd [facility], [address] [place] [address] 05/26/2024 10:45 AM EDT Office Visit Gynecology/Obstetrics [address] [place] [address] Marian Hall, DNP, CNM 400 [place] [address] [facility], Non Stress Tests [address] [place] [address] 06/02/2024 10:00 AM EDT Pharmacy Pharmacy, [place] [address] [place] [address] Clinic, [place] [address] [place] [address] Health Maintenance Due Date Last [...] filedocumented as of this encounter Care Teams Shipping Point Inspector Relationship Specialty Start Date End Date Vonda Lynn DO [address] [facility] 2 [place] [address] PCP - General Family Medicine 03/18/22 documented as of this encounter
--- OUTSIDE RECORDS SUMMARY | 2024-07-01 09:45 | External Medical Summary | Summary of Care ---
Author Name Unknown Organization [facility] Address [address] [place] [address] Phone [phone] Care Team Providers Care Water Meter Installer Name Role Phone Vonda Lynn DO Primary Care Provider +1- [phone] Reason for Visit * Reason Onset Date Comments Medication Pre-auth 05/18/2024 InFed Encounter Details Date Type Department Care Team (Late st Contact Info) Description 05/18/2024 Telephone Hematology/Oncology Treatment, [place] [address] [place] [address] Backer, KATALINA John [address] [facility] [address] Medication Pre-auth (InFed) Allergies No known active allergiesdocumented as of this encounter (statuses as of 05/20/2024) Medications Medication Sig Dispensed Refills Start Date [...] as of this encounter (statuses as of 05/20/2024) Active Problems Problem Noted Date Diagnosed Date [...] as of this encounter (statuses as of 05/20/2024) Resolved Problems Problem Noted Date Diagnosed Date [...] thus far TDAP given 07/23/19. Christen Keith, BOTTOMING MACHINE OPERATOR Closed fracture of metatarsal bone 10/11/2008 11/29/2020 Overview: ICD-10 update of inactive term documented as of this encounter (statuses as of 05/20/2024) Immunizations Name Administration Dates Next Due DTaP [...] money to get more. Never true 06/2024 Spencer Depression Scale Answer Date Recorded Spencer Depression Scale Total 16 04/16/2024 The thought [...] Miscellaneous Notes * Telephone Encounter - Velma Stack OSA [...] 3:06 PM EDT Order received for infed. [place] p [id number]. Awaiting prior authorization before scheduling patient. documented in this encounter Plan of Treatment Upcoming Encounters Date Type Department Care Team (Late st Contact Info) Description 05/21/2024 12:00 PM EDT Imaging Radiology [facility] 1st [facility] 132 [facility] [place] [address] 05/26/2024 9:45 AM EDT Imaging Radiology [facility] 2nd [facility], [place] 132 [facility] [place] [address] 05/26/2024 10:45 AM EDT Office Visit Gynecology/Obstetrics [address] [place] [address] Marian Hall, DNP, CNM 400 [facility] [place] [address] Avila, Non Stress Tests [address] [place] [address] 06/02/2024 10:00 AM EDT Pharmacy Pharmacy, [place] [address] [place], [place] [phone] Clinic, [place] [address] [place] [address] Health Maintenance Due Date Last Done Comments [...] filedocumented as of this encounter Care Teams Water Meter Installer Relationship Specialty Start Date End Date Vonda Lynn DO [address] [facility] 2 [place] [address] PCP - General Family Medicine 03/18/22 documented as of this encounter
--- OUTSIDE RECORDS SUMMARY | 2024-07-01 09:45 | External Medical Summary | Summary of Care ---
Author Name Unknown Organization [facility] Address [address] [place] [address] Phone [phone] Care Team Providers Care Pets Salesperson Name Role Phone MadhavtylerVonda DO Primary Care Provider +1- [phone] Encounter Details Date Type Department Care Team (Late st Contact Info) Description 05/19/2024 Orders Only Pharmacy, [place] [address] [place] [address] Chuck Burnett, [facility] [address] [place] [address] Allergies No known active allergiesdocumented as of this encounter (statuses as of 05/19/2024) Medications Medication Sig Dispensed Refills Start Date [...] as of this encounter (statuses as of 05/19/2024) Active Problems Problem Noted Date Diagnosed Date [...] as of this encounter (statuses as of 05/19/2024) Resolved Problems Problem Noted Date Diagnosed Date [...] as of this encounter (statuses as of 05/19/2024) Immunizations Name Administration Dates Next Due DTaP [...] money to get more. Never true 06/2024 [place] Depression Scale Answer Date Recorded [place] Depression Scale Total 16 04/16/2024 The thought [...] on file documented as of this encounter Plan of Treatment Upcoming Encounters Date Type Department Care Team (Late st Contact Info) Description 05/21/2024 12:00 PM EDT Imaging Radiology [facility] [address] [place] [address] 05/26/2024 9:45 AM EDT Imaging Radiology [facility] 2nd [facility], [address] [place] [address] 05/26/2024 10:45 AM EDT Office Visit Gynecology/Obstetrics [address] [place] [address] Marian Hall, DNP, CNM 400 [facility] [place] [address] [place], Non Stress Tests [address] [place] [address] 06/02/2024 10:00 AM EDT Pharmacy Pharmacy, [place] [address] [place] [address] Clinic, [place] [address] [place], [place] [address] Health Maintenance Due Date Last Done Comments [...] filedocumented as of this encounter Care Teams Pets Salesperson Relationship Specialty Start Date End Date Vonda Lynn DO [address] [facility] 2 [place] [address] PCP - General Family Medicine 03/18/22 documented as of this encounter
--- OUTSIDE RECORDS SUMMARY | 2024-07-01 09:45 | External Medical Summary | Summary of Care ---
Author Name Unknown Organization [facility] Address [address] [place] [address] Phone [phone] Care Team Providers Care Cleaning Porter Name Role Phone Vonda Lynn DO Primary Care Provider +1- [phone] Reason for Visit * Reason Onset Date Comments Medication Pre-auth 05/18/2024 InFed Encounter Details Date Type Department Care Team (Late st Contact Info) Description 05/18/2024 Telephone Hematology/Oncology Treatment, [place] [address] [place] [address] Backer, KATALINA John [address] [facility] [address] Medication Pre-auth (InFed) Allergies No known active [...] thus far TDAP given 07/23/19. Christen Keith, IMPERSONATOR CHARACTER Closed fracture of metatarsal bone 10/11/2008 11/29/2020 [...] money to get more. Never true 06/2024 [place] Depression Scale Answer Date Recorded [place] Depression Scale Total 16 04/16/2024 The thought [...] 3:06 PM EDT Order received for infed. [place] [id number]. Awaiting prior authorization before scheduling patient. documented in this encounter Plan of Treatment Upcoming Encounters Date Type Department Care Team (Late st Contact Info) Description 05/21/2024 12:00 PM EDT Imaging Radiology [facility] 1st [facility] 132 [facility] [place] [address] 05/26/2024 9:45 AM EDT Imaging Radiology [facility] 2nd [facility], [place] [address] [place] [address] 05/26/2024 10:45 AM EDT Office Visit Gynecology/Obstetrics [address] [place] [address] Marian Hall, DNP, CNM 400 [facility] [place] [address] Mely Avila Stress Tests [place] [address] [place] [address] 06/02/2024 10:00 AM EDT Pharmacy Pharmacy, [place] [address] [place], [place] [phone] Clinic, [facility] [address] [place] [address] Health Maintenance Due Date Last Done Comments [...] filedocumented as of this encounter Care Teams Cleaning Porter Relationship Specialty Start Date End Date Vonda Lynn DO [address] [facility] 2 [place] [address] PCP - General Family Medicine 03/18/22 documented as of this encounter
--- OUTSIDE RECORDS SUMMARY | 2024-07-01 09:45 | External Medical Summary | Summary of Care ---
Author Name Unknown Organization [facility] Address [address] [place] [address] Phone [phone] Care Team Providers Care Anatomic Pathology Manager Name Role Phone Vonda Lynn DO Primary Care Provider +1- [phone] Reason for Visit * Reason Onset Date Comments Medication Pre-auth 05/18/2024 InFed Encounter Details Date Type Department Care Team (Late st Contact Info) Description 05/18/2024 Telephone Hematology/Oncology Treatment, [place] [address] [place] [address] Backer, KATALINA John [address] [address] Medication Pre-auth (InFed) Allergies No known active [...] thus far TDAP given 07/23/19. Christen Keith, ICE CREAM FREEZER ASSISTANT Closed fracture of metatarsal bone [...] money to get more. Never true 06/2024 [place] Depression Scale Answer Date Recorded [place] Depression Scale Total 16 04/16/2024 The thought [...] 3:06 PM EDT Order received for infed. [place] plan [place] p [id number]. Awaiting prior authorization before scheduling patient. documented in this encounter Plan of Treatment Upcoming Encounters Date Type Department Care Team (Late st Contact Info) Description 05/21/2024 12:00 PM EDT Imaging Radiology [address] [place] [address] 05/26/2024 9:45 AM EDT Imaging Radiology [facility] 2nd Floor, [place] [address] [place] [address] 05/26/2024 10:45 AM EDT Office Visit Gynecology/Obstetrics [place] [address] [place] [address] Marian Hall, DNP, CNM 400 [facility] [place] [address] [place], Non Stress Tests [place] [address] [place] [address] 06/02/2024 10:00 AM EDT Pharmacy Pharmacy, [address] [address] Clinic, [place] [address] [place], [place] [address] Health Maintenance Due Date Last Done Comments Depression Monitoring 02/03/2020 02/02/2019 COVID-19 Vaccine (2022- season) 2023 01/26/2023, 01/04/2023 Influenza Vaccine (FLU [...] filedocumented as of this encounter Care Teams Anatomic Pathology Manager Relationship Specialty Start Date End Date Vonda Lynn DO [address] [facility] 2 [place] [address] PCP - General Family Medicine 03/18/22 documented as of this encounter
--- OUTSIDE RECORDS SUMMARY | 2024-07-01 09:45 | External Medical Summary | Summary of Care ---
Author Name Unknown Organization [facility] Address [address] [place] [address] Phone [phone] Care Team Providers Care Chili Pepper Grinder Name Role Phone Vonda Lynn DO Primary Care Provider +1- [phone] Reason for Visit * Reason Onset Date Comments Medication Pre-auth 05/18/2024 InFed Encounter Details Date Type Department Care Team (Late st Contact Info) Description 05/18/2024 Telephone Hematology/Oncology Treatment, [place] [address] [place] [address] Backer, KATALINA John [address] [facility] [address] Medication Pre-auth (InFed) Allergies No known active [...] thus far TDAP given 07/23/19. Christen Keith, DATA CONSULTANT Closed fracture of metatarsal bone 10/11/2008 [...] money to get more. Never true 06/2024 [place] Depression Scale Answer Date Recorded [place] Depression Scale Total 16 04/16/2024 The thought [...] Perez RN - 05/21/2024 10:44 AM EDT Stephanie/CONTINUOUS IMPROVEMENT ANALYST- FYI, please reach out to patient to [...] 3:06 PM EDT Order received for infed. [place] p [id number]. Awaiting prior authorization before scheduling patient. documented in this encounter Plan of Treatment Upcoming Encounters Date Type Department Care Team (Late st Contact Info) Description 05/21/2024 12:00 PM EDT Imaging Radiology [facility] [address] [place] [address] 05/26/2024 9:45 AM EDT Imaging Radiology [facility] 2nd [facility], [address] [place] [address] 05/26/2024 10:45 AM EDT Office Visit Gynecology/Obstetrics [address] [place] [address] Marian Hall, BRYSON, CNM [address] [place] [address] Mely Avila Stress Tests [address] [place] [address] 06/02/2024 10:00 AM EDT Pharmacy Pharmacy, [place] [address] [place] [address] Clinic[id number] Health Maintenance Due Date Last Done Comments [...] filedocumented as of this encounter Care Teams Chili Pepper Grinder Relationship Specialty Start Date End Date Vonda Lynn DO [address] [address] PCP - General Family Medicine 03/18/22 documented as of this encounter
--- OUTSIDE RECORDS SUMMARY | 2024-07-01 09:45 | External Medical Summary | Summary of Care ---
Author Name Unknown Organization [facility] Address [address] [place] [address] Phone [phone] Care Team Providers Care Cook Vacuum Kettle Name Role Phone Vonda Lynn DO Primary Care Provider +1- [phone] Reason for Visit * Reason Onset Date Comments Medication Pre-auth 05/18/2024 InFed Encounter Details Date Type Department Care Team (Late st Contact Info) Description 05/18/2024 Telephone Hematology/Oncology Treatment, [place] [address] [place] [address] Backer, KATALINA John [address] [facility] [address] Medication Pre-auth (InFed) Allergies No known active [...] thus far TDAP given 07/23/19. Christen Keith, DICTAPHONE TRANSCRIBER Closed fracture of metatarsal bone 10/11/2008 11/29/2020 [...] money to get more. Never true 06/2024 [place] Depression Scale Answer Date Recorded [place] Depression Scale Total 16 04/16/2024 The thought [...] encounter Miscellaneous Notes * Telephone Encounter - Katherin Jensen RN - 05/21/2024 10:58 AM EDT Patient has upcoming appt next week. Patient has not responded to any calls or messages. Note in stickynote to remind patient at visit * Telephone Encounter - Gustavo Perez RN - 05/21/2024 10:44 AM EDT Stephanie/QUARTZ ORIENTATOR- FYI, please reach out to patient to [...] 3:06 PM EDT Order received for infed. [place] p [phone]. Awaiting prior authorization before scheduling patient. documented in this encounter Plan of Treatment Upcoming Encounters Date Type Department Care Team (Late st Contact Info) Description 05/21/2024 12:00 PM EDT Imaging Radiology [facility] 1st [facility] [address] [place] [address] 05/26/2024 9:45 AM EDT Imaging Radiology [facility] 2nd [facility], [place] [address] [place] [address] 05/26/2024 10:45 AM EDT Office Visit Gynecology/Obstetrics [place] [address] [address] [place] [address] Marian Hall, BRYSON, [address] [place] [address] [address] [facility] [address] [place] [address] 06/02/2024 10:00 AM EDT Pharmacy Pharmacy, [address] [place] [address] Clinic, [facility] [address] [place] [address] Health Maintenance Due Date Last Done Comments Depression Monitoring 02/03/2020 02/02/2019 COVID-19 Vaccine (3 2022-24 season) 2023 01/26/2023, 01/04/2023 Influenza Vaccine (FLU [...] filedocumented as of this encounter Care Teams Cook Vacuum Kettle Relationship Specialty Start Date End Date Vonda Lynn DO [address] [facility] 2 [place] [address] PCP - General Family Medicine 03/18/22 documented as of this encounter
--- OUTSIDE RECORDS SUMMARY | 2024-07-01 09:45 | External Medical Summary | Summary of Care ---
Author Name Unknown Organization [facility] Address [address] [place] [address] Phone [phone] Care Team Providers Care Congressional Representative Name Role Phone Vonda Lynn DO Primary Care Provider +1- [phone] Reason for Visit * Reason Onset Date Comments Medication Pre-auth 05/18/2024 InFed Encounter Details Date Type Department Care Team (Late st Contact Info) Description 05/18/2024 Telephone Hematology/Oncology Treatment, [place] [address] [place] [address] Backer, KATALINA John [address] [facility] [address] Medication Pre-auth (InFed) Allergies No known active [...] thus far TDAP given 07/23/19. Christen Keith, COOK MESS Closed fracture of metatarsal bone 10/11/2008 11/29/2020 [...] money to get more. Never true 06/2024 [place] Depression Scale Answer Date Recorded [place] Depression Scale Total 16 04/16/2024 The thought [...] Perez RN - 05/21/2024 10:44 AM EDT Stephanie/REVERSE UNIT OPERATOR- FYI, please reach out to patient to [...] 3:06 PM EDT Order received for infed. [place] [phone]. Awaiting prior authorization before scheduling patient. documented in this encounter Plan of Treatment Upcoming Encounters Date Type Department Care Team (Late st Contact Info) Description 05/21/2024 12:00 PM EDT Imaging Radiology [facility] [address] [place] [address] 05/26/2024 9:45 AM EDT Imaging Radiology [facility] 2nd [facility], [address] [place] [address] 05/26/2024 10:45 AM EDT Office Visit Gynecology/Obstetrics [address] [place] [address] Marian Hall, BRYSON, CNM [address] [place] [address] Mely Avila Stress Tests [address] [place] [address] 06/02/2024 10:00 AM EDT Pharmacy Pharmacy, [place] [address] [place] [address] Clinic, [facility] [address] [facility] [phone] Health Maintenance Due Date Last Done Comments [...] filedocumented as of this encounter Care Teams Congressional Representative Relationship Specialty Start Date End Date Vonda Lynn DO [address] [address] PCP - General Family Medicine 03/18/22 documented as of this encounter
--- OUTSIDE RECORDS SUMMARY | 2024-07-01 09:46 | External Medical Summary | Summary of Care ---
Author Name Unknown Organization [facility] Address [address] [place] [address] Phone [phone] Care Team Providers Care Cyber Incident Handler Name Role Phone Vonda Lynn DO Primary Care Provider +1- [phone] Reason for Visit * Reason Onset Date Comments Anemia Follow-Up 05/13/2024 Encounter Details Date Type Department Care Team (Late st Contact Info) Description 05/13/2024 4:00 PM EDT Pharmacy Pharmacy, [place] [address] [place] [address] Clinic, [place] [address] [place] [address] Iron deficiency anemia, unspecified iron deficiency anemia type* Allergies No known active allergiesdocumented as of this encounter (statuses as of 05/13/2024) Medications Medication Sig Dispensed Refills Start Date [...] as of this encounter (statuses as of 05/13/2024) Active Problems Problem Noted Date Diagnosed Date [...] as of this encounter (statuses as of 05/13/2024) Resolved Problems Problem Noted Date Diagnosed Date [...] as of this encounter (statuses as of 05/13/2024) Immunizations Name Administration Dates Next Due DTaP [...] money to get more. Never true 06/2024 [place] Depression Scale Answer Date Recorded [place] Depression Scale Total 16 04/16/2024 The thought [...] Progress Notes * Ivis Mckeon RPh - 05/13/2024 1:06 PM EDT Patient Phone Numbers Patient referred by KATALINA Hinojosa for evaluation of anemia by the Anemia Clinic. Called patient to introduce role/clinic and to review labs from 04/16. LMOVM. Hgb: 10.8 g/dL TSAT: 11 % Ferritin: 8 ng/mL B12: <150 pg/mL FA: 4.2 ng/mL GA: 32w3d Estimated Date of Delivery: 07/05/24 Hgb is below target range for the third trimester. Iron studies below target range. B12 level belowtarget range. FA level below target range. Oral iron replenishment inadequate or contraindicated. Patient qualifies for IV iron repletion. Tentative Plan: Iron dextran (INFeD) 1000 mg IV x 1 dose. Orders need to be placed and routed to appropriate parties at [place] if patient agreeable to intervention. Pre-meds appropriate due to history of ashtma - please clarify. Follow-up labs to be scheduled ~4-6 weeks after iron repletion completed if appropriate prior to delivery. Anemia Clinic will continue to follow. Thank you for allowing us to participate in the care of thispatient. Thanks, Ivis Mckeon RP Clinical Pharmacist [facility] (P: [phone]) documented in this encounter Plan of Treatment Upcoming Encounters Date Type Department Care Team (Late st Contact Info) Description 05/14/2024 1:45 PM EDT Office Visit Gynecology/Obstetrics [address] [place] [address] Backer, Stephanie PenningtonKATALINA [address] [place] [address] 05/18/2024 4:00 PM EDT Pharmacy Pharmacy, [place] [address] [place] [address] Clinic, [place] [address] [place] [address] Health Maintenance Due Date Last Done Comments [...] Primary documented in this encounter Care Teams Cyber Incident Handler Relationship Specialty Start Date End Date Vonda Lynn DO [address] [facility] 2 [place] [address] PCP - General Family Medicine 03/18/22 documented as of this encounter
--- OUTSIDE RECORDS SUMMARY | 2024-07-01 09:46 | External Medical Summary ---
Author Name Unknown Address Unknown Organization [id number]:[facility] [address] [place] [address] Laboratory Report Ordering Provider Test Date Status ROCHELLE BASSETT 04/19/2024 11:15:03 Final Observation Date Value Abnormality Reference (Units ) Status Glucose, 2-hr post glucose challenge 04/19/2024 11:15:03 135 70-154 (mg/dL) Final Performing Location [facility] [address] [place] [address]
--- OUTSIDE RECORDS SUMMARY | 2024-07-01 09:46 | External Medical Summary ---
Author Name Unknown Address Unknown Organization : Laboratory Report Ordering Provider Test Date Status ROCHELLE BASSETT 05/14/2024 15:25:02 Final Observation Date Value Abnormality Reference (Units ) Status GANGLIONIC ACHR ANTIBODY TEST 05/14/2024 15:25:02 SEE BELOW Final TESTS--------- ----RESULTS--------UNITS--REF. RANGE---
INTERPRETATION
NEGATIVE
This test did not detect abnormal levels of anti-ganglionic
neuronal acetylcholine receptor antibodies (alpha 3AChR).
TECHNICAL RESULTS

Int erpretive Result Table

INTER PRETIVE RESULT: Negative
TEST: anti-alpha 3AChR
TECHNICAL RESULT: No abnormal levels of antibodies detected
<br/ >
COMMENTS
C omments: This result does not exclude a diagnosis of an
autoimmune etiology for the neurological symptoms associated
with paraneoplastic disorder.
Recommendations: Health care providers, please contact the
[facility] Client Services Department at
if you wish to speak with a clinical
data power consultant regarding this test result.
Other testing available: [facility] recommends
additional testing, if not already performed. [facility] currently offers the following antibody tests:
anti- Hu, anti-Yo, anti-Zic4, anti-CV2, anti-Ma1, anti-Ta,
anti-Ri, anti- Recoverin, anti-VGCC, anti-VGKC,
anti-Amphiphysin, anti-NMDA, anti-GAD65, anti-LGI1, and
anti-CASPR2. Please contact the [facility] Client
Services Department or visit [facility] for
information regarding additional testing that may be
appropriate based on this individual's clinical
presentation.
Background information: Paraneoplastic neurological
syndromes or disorders (PNS or PND) are rare immune-mediated
disorders resulting from the damage to the nervous system
due to remote effects of a tumor (1, 2). PND of the central
nervous system may occur in association with either
onconeural antibodies directed against intracellular
antigens, or antibodies targeted against neuronal surface
antigens (1, 3).
Clinical features of PND may include ataxia, limbic or
brainstem encephalitis, sensory neuropathy, subacute
cerebellar degeneration, dizziness, nystagmus, dysphagia,
dysarthria, loss of muscle tone, loss of memory, vision
problems, sleep disturbances, dementia, seizures, and/or
sensory loss in the limbs (4). In approximately 60% of PND
cases, neuropathic symptoms precede a tumor diagnosis (1).
Some of the tumors related to PND include small cell lung
cancer, ovarian teratoma and carcinoma, thymoma, lymphoma,
breast cancer, and/or testicular cancer (2). PND may also
include Lambert-Eaton myasthenic syndrome (LEMS), stiff
person syndrome, encephalomyelitis, myasthenia gravis,
neuromyotonia, and opsoclonus-myoclonus (4). However, these
disorders can also occur in individuals without underlying
cancer.
Anti-alpha 3AChR antibodies have been strongly associated
with acute and subacute (< 6 months) pandysautonomia,
typically presenting with orthostatic hypotension,
gastrointestinal dysmotility and other autonomic impairment
(5, 6, 7). A positive G-AChR antibody test indicates that
the autonomic deficits may be responsive to immunomodulatory
therapy. Although not highly predictive of malignancy,
Anti-alpha 3AChR antibodies may be found in patients with
underlying small-cell lung cancer, thymoma, or other
cancers. Since neurological symptoms precede the detection
of an occult malignancy in two thirds of cases, patient
monitoring is recommended, and a search for occult cancer
should be considered.
METHODS
Detection of antibodies was performed by Radioimmunoassay
(FRANCISCO) methodology.
Limitations of analysis: Reagent effectiveness may affect
the signal intensity of the response. Although rare, false
positive or false negative results may occur. All results
should be interpreted in the context of clinical findings,
relevant history, and other laboratory data.
REFERENCES
1. TIFFANIE Castillo, et al. (2006) Semin Oncol 33: 270-98. (PMID:
03961769)
2. LEXA Singleton et al. (2011) Eur J Neurol 18: 19-e3.
(PMID: 54535157)
3. Nestor Sheridan, et al. (2012) J Neurol Neurosurg Psychiatry
83: 638-45. (PMID: 30612830)
4. MR Jacqueline et al. (2010) Oncologist 15: 603-17.
(PMID: 25718576)
5. Oleksandr Murdock et al. (2008) Lancet Neurol 7: 327-40. (PMID:
97848450)
6. Oleksandr Khoury et al. (2007) Orphanet J Rare Dis 2: 22.
(PMID: 27463389)
7. Yulisa Medina et al. (2000) N Engl J Med 343: 847-55.
(PMID: 53190286)
This test was developed and its analytical performance
characteristics have been determined by [facility].
It has not been cleared or approved by the U.S. Food and
Drug Administration. This assay has been validated pursuant
to the CLIA regulations and is used for clinical purposes.
Laboratory oversight provided by Magi Smith M.D.,
Ph.D., CLIA license jacobs, [facility] (CLIA#
[id number])
Testing performed at:
[facility] [address] [place] [address]
Test performed by [facility]
[address] [place] [address]
[address]nd [place] [address]

Hand Stone Polisher: Magi Smith M.D., Ph.D. Performing Location
--- OUTSIDE RECORDS SUMMARY | 2024-07-01 09:46 | External Medical Summary ---
Author Name Unknown Address Unknown Organization [id number]:[facility] [address] [place] [address] Laboratory Report Ordering Provider Test Date Status ROCHELLE BASSETT 04/19/2024 09:11:11 Final Based on ACOG guideline, ges tational diabetes mellitus is diagnosed when any of the following is met:
Fasting is greater than or equal to 95 mg/dL
1 hour is greater than or equal to 180 mg/dL
2 hour is greater than or equal to 155 mg/dL
3 hour is greater than or equal to 140 mg/dL Observation Date Value Abnormality Reference (Units ) Status Glucose, fasting 04/19/2024 09:11:11 92 70- 94 (mg/dL) Final Performing Location [facility] [address] [place] [address]
--- OUTSIDE RECORDS SUMMARY | 2024-07-01 09:46 | External Medical Summary ---
Author Name Unknown Address Unknown Organization K01:[facility] [address] [facility] [address] [facility] [address] Laboratory Report Ordering Provider Test Date Status ROCHELLE BASSETT 05/14/2024 15:25:02 Final Observation Date Value Abnormality Reference (Units ) Status TSH 05/14/2024 15:25:02 0.95 0.27-4.20 (uIU/mL) Final Performing Location LABORATORY C - [address] [facility] [address]
--- OUTSIDE RECORDS SUMMARY | 2024-07-01 09:46 | External Medical Summary | Summary of Care ---
Author Name Unknown Organization [facility] Address [address] [place] [address] Phone [phone] Care Team Providers Care Clinic Nurse Name Role Phone Vonda Lynn DO Primary Care Provider +1- [phone] Encounter Details Date Type Department Care Team (Late st Contact Info) Description 05/18/2024 Orders Only [facility] [address] [place] [address] Stephanie Ricardo CRNP [address] [place] [address] Iron deficiency anemia, unspecified iron deficiency anemia [...] money to get more. Never true 06/2024 [place] Depression Scale Answer Date Recorded [place] Depression Scale Total 16 04/16/2024 The thought [...] Description 05/18/2024 4:00 PM EDT Pharmacy Pharmacy, [place] [address] [place] [facility] [place] [address] Clinic, Anemia [address] [facility] [address] Iron deficiency anemia, unspecified iron deficiency anemia type* 05/21/2024 12:00 PM EDT Imaging Radiology [facility] 1st [facility], [address] [place] [address] 05/26/2024 9:45 AM EDT Imaging Radiology [facility] 2nd [facility], [address] [place] [address] 05/26/2024 10:45 AM EDT Office Visit Gynecology/Obstetric [place] [address] [place] [address] Marian Hall, DNP, CNM [address] [place] [address] [place], Non Stress Tests [facility] [address] [place] [address] 06/02/2024 10:00 AM EDT Pharmacy Pharmacy, [place] [address] [facility] [place] [address] Clinic, [place] [address] [facility] [place] [address] Health Maintenance Due Date Last Done Comments [...] anemia, unspecified iron deficiency anemia type- Primary Iron deficiency anemia, unspecified iron deficiency anemia type- Primary documented in this encounter Care Teams Clinic Nurse Relationship Specialty Start Date End Date Vonda Lynn DO [address] [facility] 2 [place] [address] PCP - General Family Medicine 03/18/22 documented as of this encounter
--- OUTSIDE RECORDS SUMMARY | 2024-07-01 09:46 | External Medical Summary ---
Author Name Unknown Address Unknown Organization [id number]:[facility] [address] [place] [address] Laboratory Report Ordering Provider Test Date Status EMILEE BASSETTCARINE 04/19/2024 12:15:50 Final Observation Date Value Abnormality Reference (Units ) Status Glucose [Mass/volume] in Serum or Plasma --3 hours post dose glucose 04/19/2024 12:15:50 116 70-139 (mg/dL) Final Performing Location [facility] [address] [place] [address]
--- OUTSIDE RECORDS SUMMARY | 2024-07-01 09:46 | External Medical Summary | Summary of Care ---
Author Name Unknown Organization [facility] Address [address] [place] [address] Phone [phone] Care Team Providers Care Cafeteria Helper Name Role Phone Vonda Lynn DO Primary Care Provider +1- [phone] Reason for Referral * Precert (Within 10 days (routine)) - Authorized Specialty Diagnoses / Procedures Referred By Ahmet t Referred To Contact Radiology Diagnoses Ocular motility disturbance Pain of left eye Procedures CT HEAD/BRAIN WO CONTRAST Stephanie Ricardo CRNP [address] [place] [address] Referral ID Status Reason Start Date Expiration Date V isits Requested Visits Authorized [id number] Authorized Precert 05/14/2024 11/10/2024 999 999 Reason for Visit * Reason Onset Date Comments Follow Up 05/14/2024 Encounter Details Date Type Department Care Team (Late st Contact Info) Description 05/14/2024 Telephone Gynecology/Obstetrics Maryana Avila [address] [place] [address] Stephanie Ricardo CRNP [address] [place] [address] Follow Up Allergies No known active allergiesdocumented as of this encounter (statuses as of 05/14/2024) Medications Medication Sig Dispensed Refills Start Date [...] as of this encounter (statuses as of 05/14/2024) Active Problems Problem Noted Date Diagnosed Date [...] as of this encounter (statuses as of 05/14/2024) Resolved Problems Problem Noted Date Diagnosed Date [...] having any current needs or questions 06/07/2022 Courtnye Richardson RN 06/07/2022 Problem Action Taken Date [...] as of this encounter (statuses as of 05/14/2024) Immunizations Name Administration Dates Next Due DTaP [...] money to get more. Never true 06/2024 [place] Depression Scale Answer Date Recorded [place] Depression Scale Total 16 04/16/2024 The thought [...] Miscellaneous Notes * Telephone Encounter - Stephanie Ricardo CRNP - 05/14/2024 3:10 PM EDT Adams Atkinson OD from [facility] saw pt today for her eye pain/erythema. He suggested labs for thyroid abnormalities, r/o myasthenia gravis, head CT to rule out space-occupying lesion. Ptnotified in person and agreeable, will stop at lab today and schedule CT. KATALINA Willoughby 05/14/24 3:20 PM documented in this encounter Plan of Treatment Upcoming Encounters Date Type Department Care Team (Late st Contact Info) Description 05/17/2024 5:15 PM EDT [address]iology [address] [address] 05/18/2024 4:00 PM EDT Pharmacy Pharmacy, [address] [place] [address] Clinic, Anemia [address] [facility], [place] [address] 05/26/2024 9:45 AM EDT Imaging Radiology [facility] [address] [facility] [place] 132 [facility] [place] [address] 05/26/2024 10:45 AM EDT Office Visit Gynecology/Obstetrics [facility] 132 [facility] [place] [address] Marian Hall, DNP, CNM 400 [facility] [place] [address] [facility] 132 [facility] [place] [phone] Pending Results Name Type Priority Associated Diagnoses Date /Time TSH WITH FREE T4 IF INDICATED Lab Routine Ocular motility disturbance Pain of left eye 05/14/2024 3:25 PM EDT GANGLIONIC ACHR ANTIBODY TEST Lab Routine Ocular motility disturbance Pain of left eye 05/14/2024 3:25 PM EDT Scheduled Orders Name Type Priority Associated Diagnoses Orde r Schedule TSH WITH FREE T4 IF INDICATED Lab Routine Ocular motility disturbance Pain of left eye Expected: 05/14/2024 (Approximate), Expires: 05/14/2025 GANGLIONIC ACHR ANTIBODY TEST Lab Routine Ocular motility disturbance Pain of left eye Expected: 05/14/2024 (Approximate), Expires: 05/14/2025 CT HEAD/BRAIN WO CONTRAST Medical Imaging Routine Ocular motility disturbance Pain of left eye Expected: 05/14/2024 (Approximate), Expires: 06/14/2025 Health Maintenance Due Date Last Done Comments [...] as of this encounter Visit Diagnoses Diagnosis Ocular motility disturbance- Primary Unspecified disorder of eye movements Pain of left eye Pain in or around eye documented in this encounter Care Teams Cafeteria Helper Relationship Specialty Start Date End Date Vonda Lynn DO [address] [facility] 2 [place] [address] PCP - General Family Medicine 03/18/22 documented as of this encounter
--- OUTSIDE RECORDS SUMMARY | 2024-07-01 09:46 | External Medical Summary | Summary of Care ---
Author Name Unknown Organization [facility] Address [address] [place] [address] Phone [phone] Care Team Providers Care Director Retirement Name Role Phone Vonda Lynn DO Primary Care Provider +1- [phone] Reason for Visit * Reason Comments Outpatient Testing Encounter Details Date Type Department Care Team (Late st Contact Info) Description 05/14/2024 3:30 PM EDT Laboratory Laboratory, [facility] [address] [place] [phone] [facility] [address] [place] [address] Ocular motility disturbance; Pain of left eye Allergies No known active allergiesdocumented as of [...] thus far TDAP given 07/23/19. Christen Keith, GREETING CARD WRITER Closed fracture of metatarsal bone 10/11/2008 11/29/2020 [...] money to get more. Never true 06/2024 [place] Depression Scale Answer Date Recorded [place] Depression Scale Total 16 04/16/2024 The thought [...] Description 05/17/2024 5:15 PM EDT Imaging Radiology [address] [place] [address] 05/18/2024 4:00 PM EDT Pharmacy Pharmacy, [id number] [address] [place], [place] [phone] 05/26/2024 9:45 AM EDT Imaging Radiology [address] [place] [address] 05/26/2024 10:45 AM EDT Office Visit Gynecology/Obstetrics [address] [place] [address] Marian Hall, DNP, CNM [address] [place] [address] [facility] Stress [facility] [address] [place] [address] Pending Results Name Type Priority Associated Diagnoses Date /Time TSH WITH FREE T4 IF INDICATED Lab Routine Ocular motility disturbance Pain of left eye 05/14/2024 3:25 PM EDT GANGLIONIC ACHR ANTIBODY TEST Lab Routine Ocular motility disturbance Pain of left eye 05/14/2024 3:25 PM EDT Health Maintenance Due Date Last Done Comments Depression Monitoring 02/03/2020 02/02/2019 COVID-19 Vaccine (3 - 2023-24 season) 2023 01/26/2023, 01/04/2023 Influenza Vaccine (FLU [...] this encounter Visit Diagnoses Diagnosis Ocular motility disturbance Unspecified disorder of eye movements Pain of left eye Pain in or around eye documented in this encounter Care Teams Director Retirement Relationship Specialty Start Date End Date Vonda Lynn DO [address] [facility] 2 [place] [address] PCP - General Family Medicine 03/18/22 documented as of this encounter
--- OUTSIDE RECORDS SUMMARY | 2024-07-01 09:46 | External Medical Summary | Summary of Care ---
Author Name Unknown Organization [facility] Address [address] [place] [address] Phone [phone] Care Team Providers Care Rotary Rock Drilling Machine Operator Name Role Phone Vonda Lynn DO Primary Care Provider +1- [phone] Reason for Visit * Reason Comments Outpatient Testing Encounter Details Date Type Department Care Team (Late st Contact Info) Description 04/19/2024 9:00 AM EDT Laboratory Laboratory, [facility] 132 [place] [phone] [facility] [address] [place] [address] Elevated glucose tolerance test Allergies No known active allergiesdocumented as of this encounter (statuses as of 04/19/2024) Medications Medication Sig Dispensed Refills Start Date [...] as of this encounter (statuses as of 04/19/2024) Active Problems Problem Noted Date Diagnosed Date [...] as of this encounter (statuses as of 04/19/2024) Resolved Problems Problem Noted Date Diagnosed Date [...] as of this encounter (statuses as of 04/19/2024) Immunizations Name Administration Dates Next Due DTaP [...] money to get more. Never true 06/2024 [place] Depression Scale Answer Date Recorded [place] Depression Scale Total 16 04/16/2024 The thought [...] Care Team (Late st Contact Info) Description 04/26/2024 11:30 AM EDT Office Visit Gynecology/Obstetrics [address] [place] [address] Tracey Franco CRNP [address] [place] [address] Pending Results Name Type Priority Associated Diagnoses Date /Time GESTATIONAL GLUCOSE TOLERANCE, 3 HOUR Lab Routine Elevated glucose tolerance test 04/19/2024 9:11 AM EDT 100-G GESTATIONAL GLUCOSE, 2 HOUR Lab Routine Elevated glucose tolerance test 04/19/2024 11:15 AM EDT 100-G GESTATIONAL GLUCOSE, 3 HOUR Lab Routine Elevated glucose tolerance test 04/19/2024 12:15 PM EDT Health Maintenance Due Date Last Done Comments Depression Monitoring 02/03/2020 02/02/2019 COVID-19 Vaccine ( season) 2023 01/26/2023, 01/04/2023 Influenza Vaccine (FLU shot) (Season Ended) 2024 07/12/2022, 07/12/2022, 07/23/2019, Additional history exists Gonorrhea / Chlamydia Screen 12/15/2024, 04/12/2022, 07/23/2019 Pap Smear 04/12/2025 04/12/2022 DTaP,Tdap,and Td Vaccines (11 - Td or Tdap) 04/16/2034 04/16/2024, 08/23/2022, 07/23/2019, Additional history exists Hepatitis B Completed 10/23/2001, 11/27, 2000 GARDASIL-HPV IMMUNIZATION SERIES Completed 02/01/2013, 11/11/2012, 2011 MENINGOCOCCAL (MENACTRA/MENVEO) Completed 01/23/2017, 2011 Pneumococcal Vaccine: Pediatrics (0 to 5 Years) and At-Risk Patients (6 to 64 Years) Aged Out No longer eligible based on patient's age to complete this topic documented as of this encounter Medical Devices Not on filedocumented as of this encounter Procedures Procedure Name Priority Date/Time Associated Diagnosis Comments 100-G GESTATIONAL GLUCOSE, 1 HOUR Routine 04/19/2024 10:16 AM EDT Elevated glucose tolerance test 100-G GESTATIONAL GLUCOSE, FASTING Routine 04/19/2024 9:11 AM EDT Elevated glucose tolerance test documented in this encounter Results * 100-G GESTATIONAL GLUCOSE, 1 HOUR (04/19/2024 10:16 AM EDT) 100-g Gestational Glucose, 1 Hour 146 70 - 179 mg/dL 04/19/2024 11:34 AM EDT [facility] Blood Venous blood specimen / Unknown Venipuncture / Unknown 04/19/2024 10:16 AM EDT 04/19/2024 10:16 AM EDT Stephanie DARDEN LAB BLOOD O RDERABLES [facility] [address] [place] [address] * 100-G GESTATIONAL GLUCOSE, FASTING (04/19/2024 9:11 AM EDT) 100-g Gestational Glucose, Fasting 92 70 - 94 mg/dL 04/19/2024 10:17 AM EDT [facility] [place] [facility]10 Blood Venous blood specimen / Unknown Venipuncture / Unknown 04/19/2024 9:11 AM EDT 04/19/2024 9:11 AM EDT Narrative [facility] - 04/19/2024 10:17 AM EDT Based on ACOG guideline, gestational diabetes mellitus is diagnosed when any of the following is met: Fasting is greater than or equal to 95 mg/dL 1 hour is greater than or equal to 180 mg/dL 2 hour is greater than or equal to 155 mg/dL 3 hour is greater than or equal to 140 mg/dL Stephanie Pennington Backer KATALINA LAB BLOOD O RDERABLES [facility] [place] [address] [facility] [place] [address] documented in this encounter Visit Diagnoses Diagnosis Elevated glucose tolerance test Impaired glucose tolerance test documented in this encounter Care Teams Rotary Rock Drilling Machine Operator Relationship Specialty Start Date End Date Vonda Lynn DO [address] [facility] 2 [place] [address] PCP - General Family Medicine 03/18/22 documented as of this encounter
--- OUTSIDE RECORDS SUMMARY | 2024-07-01 09:46 | External Medical Summary | Summary of Care ---
Author Name Unknown Organization [facility] Address [address] [place] [address] Phone [phone] Care Team Providers Care Jet Dyeing Machine Operator Name Role Phone Vonda Lynn DO Primary Care Provider +1- [phone] Reason for Referral * Evaluate & Treat - Unlimited Visits (Within 10 days (routine)) - Authorized Specialty Diagnoses / Procedures Referred By Ahmet ruiz Referred To Contact Psychology Diagnoses CLAU (generalized anxiety disorder) Marian Hall DNP, ROWAN [address] [place] [address] Referral ID Status Reason Start Date Expiration Date Visits Requested Visits Authorized [id number] Authorized Specialty Services Required 04/16/2024 999 999 Question Answer Referral Priority Within 10 days (routine) Where should this appointment be scheduled? [facility] Is this referral for medication management? Yes Reason for Referral: Depression/Anxiety/Bipolar Specific Condition? Generalized Anxiety/Worry Comments Worsening anxiety in Reason for Visit * Reason Comments Return Visit Encounter Details Date Type Department Care Team (Late st Contact Info) Description 04/16/2024 9:45 AM EDT Office Visit Gynecology/Obstetric s [address] [place] [address] Marian Hall, DNP, CNM [address] [place] [address] High risk , antepartum*; Rh negative, antepartum; History of delivery of macrosomal infant; History of shoulder dystocia in prior ; Obesity in , antepartum; Umbilical cord cyst during , antepartum; Depression affecting ; Need for prophylactic vaccination with combined itywcctbmu-vnitpdp-hv rtussis (DTP) vaccine; Need for prophylactic immunotherapy; CLAU (generalized anxiety disorder) Allergies No known active allergiesdocumented as of this encounter (statuses as of 04/16/2024) Medications Medication Sig Dispensed Refills Start Date [...] Nausea or Vomiting. 20 Tablet 01/12/2024 Active Hospital, Clinic, or Other Facility Administered Medication Ordered Dose Route Frequency Start Date End Date Status rho d immune globulin (Rhogam) inj 300 mcgIndications:Rh negative, antepartum 300 mcg IM ONCE 04/16/2024 04/16/2024 Disc ontinued Rho D Immune Globulin (Rhophylac) inj 300 mcgIndications:Need for prophylactic immunotherapy 300 mcg IM ONCE 04/16/2024 04/16/2024 Ended documented as of this encounter (statuses as of 04/16/2024) Active Problems Problem Noted Date Diagnosed Date Antepartum anemia complicating 024 Food insecurity 03/08/2024 Overview: Per [facility] Protocol High-risk 12/15/2023 Last Assessment & [...] as of this encounter (statuses as of 04/16/2024) Resolved Problems Problem Noted Date Diagnosed Date Resolved Date Food insecurity 11/04/2022 12/15/2023 Overview: Per [facility] Protocol LGA (large for gestational a ge) fetus affecting management of mother 10/29/2022 Overview: Normal GTT at 28 wks and again at 37w1d GBS (group B Streptococcus c heraclio), +RV culture, currently 10/25/2022 12/15/2023 Iron deficiency [...] as of this encounter (statuses as of 04/16/2024) Immunizations Name Administration Dates Next Due DTaP [...] money to get more. Never true 06/2024 [place] Depression Scale Answer Date Recorded [place] Depression Scale Total 16 04/16/2024 The thought [...] Sign Reading Time Taken Comments Blood Pressure 110/68 04/16/2024 9:59 AM EDT Pulse - - Temperature - - Respiratory Rate - - Oxygen Saturation - - Inhaled Oxygen Concentration - - Weight 126.9 kg (279 lb 12.8 oz) 04/16/2024 9:59 AM EDT Height - - Body Mass Index 42.54 12/15/2023 9:53 AM EST documented in this encounter Progress Notes * Marian Hall DNP, CNM - 04/16/2024 10:06 AM EDT Augustina Hawley is a 23 year old female here for her routine OB appointment at 28w4d Her Estimated Date of Delivery: 07/05/24 REVIEW OF SYSTEMS: She affirms movement. Denies vaginal bleeding, LOF, contractions, N/V, headaches. Increased emotional outbursts, denies SI or thoughts of harm to others. PHYSICAL EXAM: Filed Vitals: 04/16/24 0959 BP: 110/68 Weight: 126.9 kg (279 lb 12.8 oz) Growth US: IMPRESSION 1. Growth within normal limits utilizing FIONA from initial scan. 2. Normal MARIOLA 3. Breech presentation. ASSESSMENT/PLAN: (O26.899, Z67.91) Rh negative status during (primary encounter diagnosis) Plan: Rhogam today Supervision of - recommended tdap vaccine - patient done today - planning to complete CBC, GTT, RPR done - rhogam given d/t A neg blood type - labor precautions and kick counts reviewed - Depression screen 16, resulted after pt visit, called patient to discuss further. States she is having emotional outbursts. States she was started on escitalopram 5mg at beginning of and got occasional headaches so she stopped in case it was related. States she would like to restart it and also open to counseling, order placed. - RTO in 2 weeks Marian Hall DNP, CNM * Pita Lubin MED ASSIST - 04/16/2024 9:59 AM EDT 28w4d Denies vaginal bleeding/rom + movements Agreeable to TDAP ? Rhogam documented in this encounter Nursing Notes * Tory Lorenzo LPN - 04/16/2024 10:50 AM EDT Patient here for Tdap and Rhogam injection. Patient doing well no complaints. Injection given IM asordered. Patient tolerated well. Patient to follow up as directed. Patient instructed to call if any complications. Patient verbalized understanding of instructions given. Injection site: Left Deltoid - tdap Left ventrogluteal - rhogam Medication Source: Dispensed stock medication documented in this encounter Miscellaneous Notes * Assessment & Plan Note - Tory Lorenzo LPN - 04/16/2024 10:50 AM EDT Associated Problem(s): High-risk 04/16/2024 Tdap Vaccine administered per clinic protocol. Pt given VIS(vaccine information sheet) Tory Lorenzo LPN * Assessment & Plan Note - Tory Lorenzo LPN - 04/16/2024 10:50 AM EDT Associated Problem(s): Rh negative status during Rhogam given 04/16/24 Tory Lorenzo LPN documented in this encounter Plan of Treatment Upcoming Encounters Date Type Department Care Team (Late st Contact Info) Description 04/19/2024 9:00 AM EDT Laboratory Laboratory, [facility] [address] [place] [phone] Raheel Avila [address] [place] [address] 04/26/2024 11:30 AM EDT Office Visit Gynecology/Obstetrics [address] [place] [phone] Tracey Franco CRNP [address] [place] [address] Scheduled Referrals Name Type Priority Associated Diagnoses Orde r Schedule ADULT/PEDS PSYCHOLOGY REFERRAL OP Referral Within 10 days (routine) CLAU (generalized anxiety disorder) Ordered: 04/16/2024 Health Maintenance Due Date Last Done Comments [...] as of this encounter Visit Diagnoses Diagnosis High risk , antepartum- Primary Rh negative, antepartum Rhesus isoimmunization affecting management of mother, antepartum condition History of delivery of macrosomal infant History of shoulder dystocia in prior Obesity in , antepartum Obesity complicating , childbirth, or the puerperium, antepartum condition or complication Umbilical cord cyst during , antepartum Depression affecting Need for prophylactic vaccination with combined aylnxddzla-vsiiicc-nnmypigyj (DTP) vaccine Need for prophylactic immunotherapy CLAU (generalized anxiety disorder) Generalized anxiety disorder documented in this encounter Administered Medications Inactive Administered Medications - up to 3 most recent administrations Medication Order MAR Action Action Date Dose Rate Site Rho D Immune Globulin (Rhophylac) inj 300 mcg 300 mcg, Intramuscular, ONCE, On Fri04/16/24 at 1130, For 1 dose, Do not administer until type and screen has been collected! 1 MCG = 5 INTERNATIONAL UNITS Given 04/16/2024 10:49 AM EDT 300 mcg Ventrogluteal Left documented in this encounter Care Teams Jet Dyeing Machine Operator Relationship Specialty Start Date End Date Vonda Lynn DO [address] [facility] 2 [place] [address] PCP - General Family Medicine 03/18/22 documented as of this encounter
--- OUTSIDE RECORDS SUMMARY | 2024-07-01 09:46 | External Medical Summary ---
Author Name Unknown Address Unknown Organization K0G:[facility] [address] [place] [address] Laboratory Report Ordering Provider Test Date Status EMILEE BASSETTCARINE 04/19/2024 10:16:02 Final Observation Date Value Abnormality Reference (Units ) Status Glucose [Mass/volume] in Serum or Plasma --1 hour post dose glucose 04/19/2024 10:16:02 146 70-179 (mg/dL) Final Performing Location [facility] [place] [address]
--- OUTSIDE RECORDS SUMMARY | 2024-07-01 09:46 | External Medical Summary | Summary of Care ---
Author Name Unknown Organization [facility] Address [address] [place] [address] Phone [phone] Care Team Providers Care Industrial Accountant Name Role Phone Vonda Lynn DO Primary Care Provider +1- [phone] Reason for Referral * Evaluate & Treat - Unlimited Visits (Within 10 days (routine)) - Authorized Specialty Diagnoses / Procedures Referred By Ahmet ruiz Referred To Contact Pharmacist / Pharmacy Diagnoses TERRY (iron deficiency anemia) Stephanie Ricardo CRNP [address] [place] [address] Referral ID Status Reason Start Date Expiration Date Visits Requested Visits Authorized [id number] Authorized Specialty Services Required 04/16/2024 99 99 Question Answer Referral Priority Within 10 days (routine) Where should this appointment be scheduled? [facility] Referring Provider Role: Specialist Specialty: storage garage manager Reason for Referral: Anemia Comments Pharmacist Medication Therapy Management: Iron deficiency anemia Jose Carlos Krueger RN Reason for Visit * Reason Onset Date Comments Blood Management Program 04/16/2024 Encounter Details Date Type Department Care Team (Late st Contact Info) Description 04/16/2024 Telephone Patient Blood Management, [place] [address] [place] [address] Backer, KATALINA John [address] [place] [address] Blood Management Program Allergies No known active allergiesdocumented as of this encounter (statuses as of 05/11/2024) Medications Medication Sig Dispensed Refills Start Date [...] as of this encounter (statuses as of 05/11/2024) Active Problems Problem Noted Date Diagnosed Date [...] as of this encounter (statuses as of 05/11/2024) Resolved Problems Problem Noted Date Diagnosed Date [...] as of this encounter (statuses as of 05/11/2024) Immunizations Name Administration Dates Next Due DTaP [...] money to get more. Never true 06/2024 [place] Depression Scale Answer Date Recorded [place] Depression Scale Total 16 04/16/2024 The thought [...] ages 0-17 years) Not on file 02/03/2024 Are you homeless or worried that [...] encounter Miscellaneous Notes * Telephone Encounter - Jose Carlos Krueger RN - 04/16/2024 2:06 PM EDT Recommend IV iron per OB MTM guidelines. Patient agreeable, prefers infusion at [facility]. documented in this encounter Plan of Treatment Upcoming Encounters Date Type Department Care Team (Late st Contact Info) Description 05/13/2024 4:00 PM EDT Pharmacy Pharmacy, [place] [address] [place] [address] Clinic, Anemia [address] [place] [address] 05/14/2024 1:45 PM EDT Office Visit Gynecology/Obstetrics [facility] 132 [facility] [place] [address] Backer, Stephanie KATALINA [place] [address] [place] [address] Scheduled Referrals Name Type Priority Associated Diagnoses Orde r Schedule PHARMACIST MEDS THERAPY MGMT REFERRAL OP Referral Within 10 days (routine) TERRY (iron deficiency anemia) Ordered: 04/16/2024 Health Maintenance Due Date Last [...] as of this encounter Visit Diagnoses Diagnosis TERRY (iron deficiency anemia)- Primary Iron deficiency anemia, unspecified documented in this encounter Care Teams Industrial Accountant Relationship Specialty Start Date End Date Vonda Lynn DO [address] [place] [address] [place] [address] PCP - General Family Medicine 03/18/22 documented as of this encounter
--- OUTSIDE RECORDS SUMMARY | 2024-07-01 09:46 | External Medical Summary | Summary of Care ---
Author Name Unknown Organization [facility] Address [address] [place] [address] Phone [phone] Care Team Providers Care Site Safety Representative Name Role Phone Vonda Lynn DO Primary Care Provider +1- [phone] Reason for Referral * Evaluate & Treat - Unlimited Visits (Within 10 days (routine)) Specialty Diagnoses / Procedures Referred By Ahmet ruiz Referred To Contact Stephanie Ricardo CRNP [address] [place] [address] Referral ID Status Reason Start Date Expiration Date V isits Requested Visits Authorized Specialty Services Required Question Answer Referral Priority Within 10 days (routine) Where should this appointment be scheduled? [facility] Reason for Visit * Reason Onset Date Comments Test Results 04/16/2024 Encounter Details Date Type Department Care Team (Late st Contact Info) Description 04/16/2024 Telephone Gynecology/Obstetrics [facility] [address] [place] [address] Stephanie Ricardo CRNP [address] [place] [address] Test Results Allergies No known active allergiesdocumented as of [...] Date resolved Denies any concerns 06/26/2022 Katherin Perasud RN 06/26/22 Problem Action Taken Date entered [...] money to get more. Never true 06/2024 R[place] Depression Scale Answer Date Recorded R[place] Depression Scale Total 16 04/16/2024 The thought [...] encounter Miscellaneous Notes * Telephone Encounter - Tory Lorenzo LPN - 04/16/2024 1:44 PM EDT Patient notified. Agreeable to iron infusions. Please help her schedule 3 hour glucose testing. * Telephone Encounter - Stephanie Ricardo CRNP - 04/16/2024 1:33 PM EDT +anemia, recommend iron infusions since her hemoglobin is <11. Will place an order to blood management. Her 1 hr glucose was also elevated; recommend 3 hr testing. Ordered, please let her know and schedule this. Thanks! KATALINA Willoughby documented in this encounter Plan of Treatment Upcoming Encounters Date Type Department Care Team (Late st Contact Info) Description 04/26/2024 11:30 AM EDT Office Visit Gynecology/Obstetrics [address] [place] [address] Tracey Franco CRNP [address] [place] [address] Scheduled Orders Name Type Priority Associated Diagnoses Orde r Schedule GESTATIONAL GLUCOSE TOLERANCE, 3 HOUR Lab Routine Elevated glucose tolerance test Expected: 04/16/2024 (Approximate), Expires: 04/16/2025 Scheduled Referrals Name Type Priority Associated Diagnoses Orde r Schedule BLOOD MANAGEMENT REFERRAL Referral Within 10 days (routine) Antepartum anemia complicating Ordered: 04/16/2024 Health Maintenance Due Date Last [...] as of this encounter Visit Diagnoses Diagnosis Elevated glucose tolerance test- Primary Impaired glucose tolerance test Antepartum anemia complicating Anemia, antepartum documented in this encounter Care Teams Site Safety Representative Relationship Specialty Start Date End Date Vonda Lynn DO [address] [place] [address] [place] [address] PCP - General Family Medicine 03/18/22 documented as of this encounter
--- OUTSIDE RECORDS SUMMARY | 2024-07-01 09:46 | External Medical Summary | Summary of Care ---
Author Name Unknown Organization [facility] Address [address] [place] [address] Phone [phone] Care Team Providers Care Winder Tender Name Role Phone Vonda Lynn DO Primary Care Provider +1- [phone] Reason for Visit * Reason Comments Return Visit Encounter Details Date Type Department Care Team (Late st Contact Info) Description 05/14/2024 1:45 PM EDT Office Visit Gynecology/Obstetric s [facility] [address] [place] [address] Stephanie Ricardo CRNP [address] [place] [address] High-risk in third trimester*; Rh negative status during in third trimester; History of delivery of macrosomal ; History of shoulder dystocia in prior ; [...] money to get more. Never true 06/2024 Winston Depression Scale Answer Date Recorded Winston Depression Scale Total 16 04/16/2024 The thought [...] Sign Reading Time Taken Comments Blood Pressure 102/62 05/14/2024 1:58 PM EDT Pulse - - Temperature - - Respiratory Rate - - Oxygen Saturation - - Inhaled Oxygen Concentration - - Weight 127.1 kg (280 lb 3.2 oz) 05/14/2024 1:58 PM EDT Height - - Body Mass Index 42.6 12/15/2023 9:53 AM EST documented in this encounter Progress Notes * Stephanie Ricardo CRNP - 05/14/2024 2:08 PM EDT 32w4d Baby moving well. No regular ctx, LOF/bleeding. Increased pelvic pressure/discomfort - encouraged yoga ball, belly band. Due for growth scan, S>D today. Will schedule. Discussed weekly NSTs at 34 weeks. Developed pain and redness in her L eye about 3 weeks ago; went to acute care and was treated for an eye infection w/o relief. Denies prior injury. Developed a L sided LOMBARDI at the same time. On exam, medial aspect of L eyelid is slightly swollen, sclera erythematous. Advised that she stop at the eye center in the building after her visit today to see if she can be evaluated now. She is agreeable. 2 week return KATALINA Willoughby * Pita Lubin MED ASSIST - 05/14/2024 1:58 PM EDT 32w4d Denies vaginal bleeding/rom + movements Has had a headache for 3 weeks. Went to acute care for eye swollen/red 2 weeks ago. Tylenol not helping with headache documented in this encounter Plan of Treatment Upcoming Encounters Date Type Department Care Team (Late st Contact Info) Description 05/18/2024 4:00 PM EDT Pharmacy Pharmacy, [facility] [address] [place] [address] Clinic, [facility] [address] [place], [place] [id number] 05/26/2024 9:45 AM EDT [facility] [address] [place] [address] 05/26/2024 10:45 AM EDT Office Visit Gynecology/Obstetrics [facility] [address] [place] [address] Marian Hall, DNP, CNM [address] [place], [place] [id number] Mely Avila Stress Tests [facility] [address] [place] [address] Scheduled Orders Name Type Priority Associated Diagnoses Orde r Schedule US PREG FOLLOW-UP EACH FETUS Medical Imaging Routine History of delivery of macrosomal High-risk in third trimester Obesity in , antepartum Expected: 05/28/2024 (Approximate), Expires: 06/14/2025 Health Maintenance Due Date [...] antepartum documented in this encounter Care Teams Winder Tender Relationship Specialty Start Date End Date Vonda Lynn DO [address] [facility] 2 [place] [address] PCP - General Family Medicine 03/18/22 documented as of this encounter
--- OUTSIDE RECORDS SUMMARY | 2024-07-01 09:46 | External Medical Summary | Summary of Care ---
Author Name Unknown Organization [facility] Address [address] [place] [address] Phone [phone] Care Team Providers Care Military Communications Specialist Name Role Phone Vonda Lynn DO Primary Care Provider +1- [phone] Reason for Visit * Reason Onset Date Comments Anemia Follow-Up 05/05/2024 * Evaluate & Treat - Unlimited Visits (Within 10 days (routine)) - Authorized Specialty Diagnoses / Procedures Referred By Ahmet ruiz Referred To Contact Pharmacist / Pharmacy Diagnoses TERRY (iron deficiency anemia) Stephanie Ricardo CRNP [address] [place] [address] Referral ID Status Reason Start Date Expiration Date Visits Requested Visits Authorized [id number] Authorized Specialty Services Required 04/16/2024 99 99 Encounter Details Date Type Department Care Team (Late st Contact Info) Description 05/05/2024 4:00 PM EDT Pharmacy Pharmacy, [facility] [address] [place] [address] Clinic, Anemia [address] [place] [address] Iron deficiency anemia, unspecified iron deficiency anemia type* Allergies No known active allergiesdocumented as of this encounter (statuses as of 05/05/2024) Medications Medication Sig Dispensed Refills Start Date [...] as of this encounter (statuses as of 05/05/2024) Active Problems Problem Noted Date Diagnosed Date Antepartum anemia complicating 024 Food insecurity 03/08/2024 Overview: Per [facility] Protocol High-risk 12/15/2023 Last Assessment [...] as of this encounter (statuses as of 05/05/2024) Resolved Problems Problem Noted Date Diagnosed Date [...] as of this encounter (statuses as of 05/05/2024) Immunizations Name Administration Dates Next Due DTaP [...] money to get more. Never true 06/2024 [place] Depression Scale Answer Date Recorded [place] Depression Scale Total 16 04/16/2024 The thought [...] of this encounter Progress Notes * Ivis Mckeon, [facility] - 05/05/2024 1:32 PM EDT Patient Phone Numbers Patient referred by KATALINA Hinojosa for evaluation of anemia by the Anemia Clinic. Called patient to introduce role/clinic and to review labs from 04/16. DONOVANOVM. Hgb: 10.8 g/dL TSAT: 11 % Ferritin: 8 ng/mL B12: <150 pg/mL FA: 4.2 ng/mL GA: 31w2d Estimated Date of Delivery: 07/05/24 Hgb is [...] the care of thispatient. Thanks, Ivis Mckeon [facility] Clinical Pharmacist [facility] (P: [phone]) 05/05/2024 1:33 PM documented in this encounter Plan of Treatment Upcoming Encounters Date Type Department Care Team (Late st Contact Info) Description 05/13/2024 4:00 PM EDT Pharmacy Pharmacy, [facility] [address] [place] [address] Clinic, Anemia [address] [place] [address] 05/14/2024 1:45 PM EDT [facility] [address] [place] [address] BackerStephanie CRNP [address] [place] [address] Scheduled Referrals Name Type Priority Associated Diagnoses [...] Primary documented in this encounter Care Teams Military Communications Specialist Relationship Specialty Start Date End Date Vonda Lynn DO [address] [facility] 2 [place] [address] PCP - General Family Medicine 03/18/22 documented as of this encounter
--- OUTSIDE RECORDS SUMMARY | 2024-07-01 09:46 | External Medical Summary | Summary of Care ---
Author Name Unknown Organization [facility] Address [address] [place] [address] Phone [phone] Care Team Providers Care Real Estate Inspector Name Role Phone Vonda Lynn DO Primary Care Provider +1- [phone] Reason for Visit * Reason Onset Date Comments Anemia Follow-Up 05/13/2024 Encounter Details Date Type Department Care Team (Late st Contact Info) Description 05/13/2024 4:00 PM EDT Pharmacy Pharmacy, [place] [address] [place] [address] Clinic, Anemia [address] [place] [address] Iron deficiency anemia, unspecified iron deficiency anemia [...] money to get more. Never true 06/2024 [place] Depression Scale Answer Date Recorded [place] Depression Scale Total 16 04/16/2024 The thought [...] thispatient. Thanks, Ivis Mckeon RP Clinical Pharmacist [facility] (P: [phone]) documented in this encounter Plan of Treatment Upcoming Encounters Date Type Department Care Team (Late st Contact Info) Description 05/14/2024 1:45 PM EDT Office Visit Gynecology/Obstetrics [address] [place] [address] Backer, Stephanie PenningtonKATALINA [address] [place] [address] 05/18/2024 4:00 PM EDT Pharmacy Pharmacy, [facility] [address] [place] [address] Clinic, Anemia [address] [place] [address] Health Maintenance Due Date Last Done Comments [...] Primary documented in this encounter Care Teams Real Estate Inspector Relationship Specialty Start Date End Date Vonda Lynn DO [address] [facility] 2 [place] [address] PCP - General Family Medicine 03/18/22 documented as of this encounter
--- OUTSIDE RECORDS SUMMARY | 2024-07-01 09:47 | External Medical Summary | Summary of Care ---
Author Name Unknown Organization [facility] Address [address] [facility] [address] Phone [phone] Care Team Providers Care Outside Solar Sales Consultant Name Role Phone Vonda Lynn DO Primary Care Provider +1- [phone] Reason for Visit * Reason Onset Date Comments Test Results 11/28/2023 Unexpected or In determinate Result Encounter Details Date Type Department Care Team (Late st Contact Info) Description 11/28/2023 Telephone [address] [place] [address] Backer, KATALINA John [address] [facility] [place] [address] Test Results (Unexpected or Indeterminate ... Allergies No known active allergiesdocumented as of this encounter (statuses as of 02/27/2024) Medications No known medicationsdocumented as of this encounter (statuses as of 02/27/2024) Active Problems Problem Noted Date Diagnosed Date High-risk 12/15/2023 History of shoulder dystocia in prior 12/15/2023 [...] vaginal delivery Rh negative status during 07/27/2019 Other allergic rhinitis 02/12/2006 Overview: ICD-10 update of inactive term documented as of this encounter (statuses as of 02/27/2024) Resolved Problems Problem Noted Date Diagnosed Date [...] as of this encounter (statuses as of 02/27/2024) Immunizations Name Administration Dates Next Due DTaP [...] Inj 11/08/2014,2011,09/16/2008,08/31 TDAP (age 10 and older)(Boostrix) 08/23/2022,,01/23/2017 TDAP (age 11 and older)(Adacel) 2011 Varicella Vaccine (Chicken Pox) 10/17/2010,10/23 documented [...] money to get more. Never true 06/2024 [place] Depression Scale Answer Date Recorded [place] Depression Scale Total 10 12/15/2023 The thought of harming myself has occurred to me . Never 12/15/2023 Sex and Gender Information Value Date Recorded Sex Assigned at Female 02/08/2022 10:06 AM EDT Gender Identity Female 02/08/2022 10:06 AM EDT Sexual Orientation Straight 02/08/2022 10 :06 AM EDT Job Start Date Occupation Industry Not on file Not on file Not on file documented as of this encounter Miscellaneous Notes * Telephone Encounter - Backer, KATALINA John - 11/28/2023 11:51 AM EST Ok. KATALINA Willoughby * Telephone Encounter - Magali Cárdenas OSA - 11/28/2023 11:50 AM EST Hello- The radiologist discovered an unexpected or indeterminate finding on Augustinaiveth Hawley ([id number]) and asks that you review the following report. Study Type: US PELVIS TRANS-VAGINAL OB Date of Study: 11/28/2023 IMPRESSION 1. Umbilical cord cyst(s). Would reassess before the completion of the 1st trimester to assess significance. 2. Single live intrauterine gestation with FIONA of 07/05/2024. Please respond to this encounter to acknowledge receipt of this message and take responsibility to ensure this report is reviewed. Thank you, CLAYTON Olmedo Client Service [facility] Medicine [place] documented in this encounter Plan of Treatment Upcoming Encounters Date Type Department Care Team (Late st Contact Info) Description 03/03/2024 10:30 AM EDT Imaging Radiology [address] [place] [address] 03/16/2024 11:30 AM EDT Office Visit Gynecology/Obstetrics [facility] [address] [place] [address] Stephanie Ricardo CRNP [address] [place] [address] Health Maintenance Due Date Last Done Comments COVID-19 Vaccine ( season) 2023 01/26/2023, 01/04/2023 Influenza Vaccine (FLU shot) (Season Ended) 2024 07/12/2022, 07/12/2022, 07/23/2019, Additional history exists Gonorrhea / Chlamydia Screen 12/15/2024, 04/12/2022, 07/23/2019 Pap Smear 04/12/2025 04/12/2022 DTaP,Tdap,and Td Vaccines (10 - Td or Tdap) 08/23/2032 08/23/2022, 07/23/2019, 01/23/2017, Additional history exists Hepatitis B Completed 10/23/2001, [...] filedocumented as of this encounter Care Teams Outside Solar Sales Consultant Relationship Specialty Start Date End Date Vonda Lynn DO [address] [facility] 2 [place] [address] PCP - General Family Medicine 03/18/22 documented as of this encounter
--- OUTSIDE RECORDS SUMMARY | 2024-07-01 09:47 | External Medical Summary | Summary of Care ---
Author Name Unknown Organization [facility] Address [address] [place] [address] Phone [phone] Care Team Providers Care Human Projectile Name Role Phone Vonda Lynn DO Primary Care Provider +1- [phone] Reason for Visit * Reason Comments Outpatient Testing Encounter Details Date Type Department Care Team (Late st Contact Info) Description 04/16/2024 8:10 AM EDT Laboratory Laboratory, [facility] [address] [place] [id number] [facility] [address] [place] [address] High-risk in second trimester; Rh negative status during in second trimester Allergies No known active allergiesdocumented as of [...] Active Problems Problem Noted Date Diagnosed Date Food insecurity 03/08/2024 Overview: Per [facility] Protocol High-risk 12/15/2023 History of shoulder dystocia in [...] Date Food insecurity 11/04/2022 12/15/2023 Overview: Per [facility] Protocol LGA (large for gestational [...] 11/08/2014,2011,09/16/2008,08/31 TDAP (age 10 and older)(Boostrix) 08/23/2022,,01/23/2017 TDAP, Age 7 and older, IM (Adacel) [...] money to get more. Never true 06/2024 [place] Depression Scale Answer Date Recorded [place] Depression Scale Total 10 12/15/2023 The thought of harming myself has occurred to me . Never 12/15/2023 Childcare Answer Date Recorded Do you feel [...] No 02/03/2024 Does the household have a [place] [facility] [facility] [place] source of income? (Household - for ages [...] Description 04/16/2024 9:45 AM EDT Office Visit Gynecology/Obstetrics [facility] [address] [place] [address] Marian Hall, DNP, CNM [address] [place] [phone] Arrived Pending Results Name Type Priority Associated Diagnoses Date /Time 50-G GESTATIONAL GLUCOSE, 1 HOUR Lab Routine High-risk in second trimester 04/16/2024 9:21 AM EDT SYPHILIS ANTIBODY SCREEN WITH REFLEX TO RPR Lab Routine High-risk in second trimester 04/16/2024 9:21 AM EDT CBC WITH WBC DIFFERENTIAL AND ANEMIA REFLEX WORKUP Lab Routine High-risk in second trimester 04/16/2024 9:21 AM EDT TYPE AND SCREEN Lab Routine High-risk in second trimester Rh negative status during in second trimester 04/16/2024 9:21 AM EDT SYPHILIS ANTIBODY SCREEN Lab Routine High-risk in second trimester 04/16/2024 9:21 AM EDT ANEMIA CBC Lab Routine High-risk in second trimester 04/16/2024 9:21 AM EDT DIFFERENTIAL, AUTOMATED Lab Routine High-risk in second trimester 04/16/2024 9:21 AM EDT ANEMIA REFLEX CHEMISTRY HOLD Lab Routine High-risk in second trimester 04/16/2024 9:21 AM EDT Health Maintenance Due Date Last Done [...] this encounter Visit Diagnoses Diagnosis High-risk in second trimester Rh negative status during in second trimester documented in this encounter Care Teams Human Projectile Relationship Specialty Start Date End Date Vonda Lynn DO [address] [facility] 2 [place] [address] PCP - General Family Medicine 03/18/22 documented as of this encounter
--- OUTSIDE RECORDS SUMMARY | 2024-07-01 09:47 | External Medical Summary ---
Author Name Unknown Address Unknown Organization [id number]:[facility] [address] [place] [address] Laboratory Report Ordering Provider Test Date Status ROCHELLE BASSETT 04/16/2024 09:21:19 Final Observation Date Value Abnormality Reference (Units ) Status Glucose [Moles/volume] in Serum or Plasma --1 hour post 50 g glucose PO 04/16/2024 09:21:19 136 Above high normal 70-129 (mg/dL) Final Performing Location [facility] [address] [place] [address]
--- OUTSIDE RECORDS SUMMARY | 2024-07-01 09:47 | External Medical Summary | Summary of Care ---
Author Name Unknown Organization [facility] Address [address] [place] [address] Phone [phone] Care Team Providers Care Proof Operator Name Role Phone Vonda Lynn DO Primary Care Provider +1- [phone] Encounter Details Date Type Department Care Team (Late st Contact Info) Description 02/19/2024 Telephone Gynecology/Obstetrics [facility] [address] [place] [address] Marian Hall, DNP, CNM [address] [place], [place] [phone] Allergies No known active allergiesdocumented as of this encounter (statuses as of 02/20/2024) Medications Medication Sig Dispensed Refills Start Date End Date Status Complete Oral Capsule Therapy Pack Take by mouth. 0 Active Escitalopram Oxalate 5 MG Oral Tablet (Lexapro)Indication s:Depression affecting Take 1 Tablet by mouth in the morning. 90 Tablet 3 12/15/2023 Active Additional Information Patient not taking.Reported on 01/12/2024 Ondansetron HCl 4 MG Oral TabletIndications:N ausea and vomiting during Take 1 Tablet by mouth every 8 hours as needed for Nausea or Vomiting. 20 Tablet 0 01/12/2024 Active documented as of this encounter (statuses as of 02/20/2024) Active Problems Problem Noted Date Diagnosed Date [...] as of this encounter (statuses as of 02/20/2024) Resolved Problems Problem Noted Date Diagnosed Date Resolved Date Food insecurity 11/04/2022 12/15/2023 Overview: Per [facility] Protocol LGA (large for gestational a ge) fetus affecting management of mother 10/29/2022 Overview: Normal GTT at 28 wks and again at 37w1d GBS (group B Streptococcus c arrcj), +RV culture, currently 10/25/2022 12/15/2023 Iron deficiency [...] as of this encounter (statuses as of 02/20/2024) Immunizations Name Administration Dates Next Due DTaP Dipth/Tet/Acell Pertussis (Infanrix), Peds 02/12/2006,01/11/2002,04/17/2001,02/10,2000 H1N1 2009 Influenza, Intranasal 09/08/2009 HIB PRP-T, 4 dose (ActHib) 10/23/2001,02/10/2001 ,2000 HPV Vaccine, 4-Valent 02/01/2013,11/11/2012,09/26 Hepatitis B, 0-19 [...] Inj 11/08/2014,2011,09/16/2008,08/31,09/09/2005 TDAP (age 10 and older)(Boostrix) 08/23/2022,,01/23/2017 TDAP [...] money to get more. Never true 06/2024 [place] Depression Scale Answer Date Recorded [place] Depression Scale Total 10 12/15/2023 The thought of harming myself has occurred to me . Never 12/15/2023 Estimated Date of Delivery Comme nts Yes [...] Telephone Encounter - Katherin Jensen RN - 02/19/2024 8:30 AM EDT Attempted to call patient. No answer, LVM to return call. * Telephone Encounter - Katherin Jensen RN - 02/19/2024 8:23 AM EDT ----- Message from Marian Hall DNP, CNLalo sent at 02/18/2024 4:56 PM EDT ----- Please assist pt in scheduling f/u US in 2 weeks, they need more pictures of the spine and face. Thanks! IMPRESSION 1. Growth within normal limits utilizing FIONA from initial scan. 2. Spine and facial profile are not well evaluated due to position. Follow-up in 2 weeks. documented in this encounter Plan of Treatment Upcoming Encounters Date Type Department Care Team (Late st Contact Info) Description 03/03/2024 10:30 AM EDT Imaging Radiology [address] [place] [address] 03/16/2024 11:30 AM EDT Office Visit Gynecology/Obstetrics [address] [place] [address] Backer, KATALINA John [address] [place] [address] Health Maintenance Due Date Last Done Comments [...] filedocumented as of this encounter Care Teams Proof Operator Relationship Specialty Start Date End Date Vonda Lynn DO [address] [facility] [address] [place] [address] PCP - General Family Medicine 03/18/22 documented as of this encounter
--- OUTSIDE RECORDS SUMMARY | 2024-07-01 09:47 | External Medical Summary ---
Author Name Unknown Address Unknown Organization [id number]:[facility] - [address] [place] [address] Laboratory Report Ordering Provider Test Date Status ROCHELLE BASSETT 04/16/2024 09:21:19 Final Observation Date Value Abnormality Reference (Units ) Status TSH 04/16/2024 09:21:19 2.39 0.27-4.20 (uIU/mL) Final Performing Location [facility] - [address] [place] [address]
--- OUTSIDE RECORDS SUMMARY | 2024-07-01 09:47 | External Medical Summary ---
Author Name Unknown Address Unknown Organization K01:[facility] [place] [address] [place] [address] Laboratory Report Ordering Provider Test Date Status DANYELLEBACKER 04/16/2024 09:21:19 Final Observation Date Value Abnormality Reference (Units ) Status WBC, Total 04/16/2024 09:21:19 8.21 4.00-10.8 0 (K/uL) Final RBC 04/16/2024 09:21:19 3.55 3.85-5.15 (M/uL) Final Hemoglobin 04/16/2024 09:21:19 10.8 Below low normal 12 .0-15.3 (g/dL) Final Anemia reflex testing trigge rs on a HGB < 12.0 for Females and HGB < 13.0 for Males in accordance with the WHO Anemia Guidelines
Anemia reflex testing triggers on a HGB < 12.0 for Females and HGB < 13.0 for Males in accordance with the WHO Anemia Guidelines HCT 04/16/2024 09:21:19 34.8 Below low normal 36. 0-45.2 (%) Final MCV 04/16/2024 09:21:19 98.0 81.5-97.5 (fL) Final MCH 04/16/2024 09:21:19 30.4 27.0-34.0 (pg) Final MCHC 04/16/2024 09:21:19 31.0 32.0-36.0 (g/dL) Final RDW 04/16/2024 09:21:19 14.1 11.5-15.5 (%) Final Platelets 04/16/2024 09:21:19 211 140-400 (K /uL) Final MPV 04/16/2024 09:21:19 10.6 6.6-11.1 ( fL) Final Nucleated erythrocytes/100 leukocytes [Ratio] in Blood by Automated count 04/16/2024 09:21:19 0 <=0 (/100 WBCs) Final Performing Location [facility] [place] [address] [facility] [address]
--- OUTSIDE RECORDS SUMMARY | 2024-07-01 09:47 | External Medical Summary | Summary of Care ---
Author Name Unknown Organization [facility] Address [address] [place] [address] Phone [phone] Care Team Providers Care Legal Aid Name Role Phone Vonda Lynn DO Primary Care Provider +1- [phone] Encounter Details Date Type Department Care Team (Late st Contact Info) Description 04/16/2024 Documentation Patient Blood Management, [place] [address] [place] [address] Jose Carlos Krueger RN Allergies No known active allergiesdocumented as of [...] care thus far TDAP given 07/23/19. Christen A [place], MATCH MARKER Closed fracture of metatarsal bone 10/11/2008 11/29/2020 [...] money to get more. Never true 06/2024 [place] Depression Scale Answer Date Recorded [place] Depression Scale Total 16 04/16/2024 The thought [...] as of this encounter Progress Notes * Jose Carlos Krueger RN - 04/16/2024 2:09 PM EDT REFERRAL - Patient Blood Management Name: Augustina Hawley REQUESTING SERVICE: Fouzia Avila OB REASON FOR REFERRAL: new evaluation outpatient, anemia in [facility]: 07/05/24 Anemia Evaluation: Latest Reference Range & Units 04/16/24 09:21 HGB 12.0 - 15.3 g/dL 10.8 (L) HCT 36.0 - 45.2 % 34.8 (L) Immature Reticuloctye Fraction 2.5 - 20.6 % 30.4 (H) Reticulocyte Hemoglobin 29.7 - 37.4 pg 32.6 (L): Data is abnormally low (H): Data is abnormally high Current Patient Medications: Medications that may impair hemostasis: none Medications that may impair iron absorption: none Patient Refused Blood Transfusion? (e.g. Amish): no Possible Contributing Factors: iron deficiency Treatment Recommendations: IV iron per OB MTM guidelines. 04/16 - Spoke with Augustina, she is agreeable to IV iron at [facility]. Will submit OB MTM. Thank you for allowing Blood Management to participate in the care of this patient. documented in this encounter Plan of Treatment Upcoming Encounters Date Type Department Care Team (Late st Contact Info) Description 04/26/2024 11:30 AM EDT Office Visit Gynecology/Obstetrics [address] [place] [address] Tracey Franco CRNP [address] [facility] [place] [address] Health Maintenance Due Date Last Done Comments [...] filedocumented as of this encounter Care Teams Legal Aid Relationship Specialty Start Date End Date Vonda Lynn DO [address] [facility] 2 [place] [address] PCP - General Family Medicine 03/18/22 documented as of this encounter
--- OUTSIDE RECORDS SUMMARY | 2024-07-01 09:47 | External Medical Summary | Summary of Care ---
Author Name Unknown Organization [facility] Address [address] [place] [address] Phone [phone] Care Team Providers Care Orientation & Mobility Specialist Name Role Phone Vonda Lynn DO Primary Care Provider +1- [phone] Reason for Visit * Reason Comments Return Visit Encounter Details Date Type Department Care Team (Late st Contact Info) Description 03/16/2024 11:30 AM EDT Office Visit Gynecology/Obstetric s Maryana Avila [address] [place] [address] Stephanie Ricardo CRNP [address] [place] [address] High-risk in second trimester*; Rh negative status during in second trimester; History of delivery of macrosomal infant; History of shoulder dystocia in prior ; Obesity in , antepartum; Umbilical cord cyst during , antepartum; Depression affecting Allergies No known active allergiesdocumented as of this encounter (statuses as of 03/16/2024) Medications Medication Sig Dispensed Refills Start Date [...] as of this encounter (statuses as of 03/16/2024) Active Problems Problem Noted Date Diagnosed Date Food insecurity 03/08/2024 Overview: Per [facility] Protocol High-risk 12/15/2023 History of [...] as of this encounter (statuses as of 03/16/2024) Resolved Problems Problem Noted Date Diagnosed Date [...] thus far TDAP given 07/23/19. Christen Keith, CUSTOMER SUPPLY COORDINATOR Closed fracture of metatarsal bone 10/11/2008 11/29/2020 Overview: ICD-10 update of inactive term documented as of this encounter (statuses as of 03/16/2024) Immunizations Name Administration Dates Next Due DTaP [...] money to get more. Never true 06/2024 [place] Depression Scale Answer Date Recorded [place] Depression Scale Total 10 12/15/2023 The thought [...] Sign Reading Time Taken Comments Blood Pressure 108/70 03/16/2024 11:43 AM EDT Pulse - - Temperature - - Respiratory Rate - - Oxygen Saturation - - Inhaled Oxygen Concentration - - Weight 128.8 kg (284 lb) 03/16/2024 11:43 AM EDT Height - - Body Mass Index 43.18 12/15/2023 9:53 AM EST documented in this encounter Progress Notes * Stephanie Ricardo CRNP - 03/16/2024 11:54 AM EDT 24w1d Feels well. + movement. No cramping/bleeding. Labs and growth u/s with next visit. KATALINA Willoughby * Jamila Viera LPN - 03/16/2024 11:44 AM EDT 24w1d Denies vaginal bleeding/rom + movement No new concerns documented in this encounter Plan of Treatment Upcoming Encounters Date Type Department Care Team (Late st Contact Info) Description 04/16/2024 8:10 AM EDT Laboratory Laboratory, [facility] [address] [facility] [place] [id number] [facility], [address] [place] [address] 04/16/2024 8:15 AM EDT Imaging Radiology [facility] 2nd Floor, [address] [place] [address] 04/16/2024 9:45 AM EDT Office Visit Gynecology/Obstetrics [address] [place] [address] Marian Hall, BRYSON, CN [address] [facility] [place] [address] Scheduled Orders Name Type Priority Associated Diagnoses Orde r Schedule 50-G GESTATIONAL GLUCOSE, 1 HOUR Lab Routine High-risk in second trimester Expected: 04/16/2024 (Approximate), Expires: 03/16/2025 SYPHILIS ANTIBODY SCREEN WITH REFLEX TO RPR Lab Routine High-risk in second trimester Expected: 04/16/2024 (Approximate), Expires: 03/16/2025 CBC WITH WBC DIFFERENTIAL AND ANEMIA REFLEX WORKUP Lab Routine High-risk in second trimester Expected: 04/16/2024 (Approximate), Expires: 03/16/2025 TYPE AND SCREEN Lab Routine High-risk in second trimester Rh negative status during in second trimester Expected: 04/16/2024 (Approximate), Expires: 04/16/2025 US PREG FOLLOW-UP EACH FETUS Medical Imaging Routine High-risk in second trimester Obesity in , antepartum Expected: 04/16/2024 (Approximate), Expires: 04/16/2025 Health Maintenance Due Date Last Done Comments [...] encounter Visit Diagnoses Diagnosis High-risk in second trimester- Primary Rh negative status during in second trimester History of delivery of macrosomal History of shoulder dystocia in prior Obesity in , antepartum Obesity complicating , childbirth, or the puerperium, antepartum condition or complication Umbilical cord cyst during , antepartum Depression affecting documented in this encounter Care Teams Orientation & Mobility Specialist Relationship Specialty Start Date End Date Vonda Lynn DO [address] [facility] 2 [place] [address] PCP - General Family Medicine 03/18/22 documented as of this encounter
--- OUTSIDE RECORDS SUMMARY | 2024-07-01 09:47 | External Medical Summary ---
Author Name Unknown Address Unknown Organization K01:[facility] [place] [address] [place] [address] Laboratory Report Ordering Provider Test Date Status EMILEE BASSETTCARINE 04/16/2024 09:21:19 Final Observation Date Value Abnormality Reference (Units ) Status ABO 04/16/2024 09:21:19 A Final RH 04/16/2024 09:21:19 Negative Final RED BLOOD CELL ANTIBODY SCREEN 04/16/2024 09:21:19 Negative Final SPECIMEN EXPIRATION DATE 04/16/2024 09:21:19 04/19/2024 23:59 Final Performing Location [facility] [place] [address] [place] [address]
--- OUTSIDE RECORDS SUMMARY | 2024-07-01 09:47 | External Medical Summary | Summary of Care ---
Author Name Unknown Organization [facility] Address [address] [place] [address] Phone [phone] Care Team Providers Care Instructional Writer Name Role Phone Vonda Lynn DO Primary Care Provider +1- [phone] Encounter Details Date Type Department Care Team (Late st Contact Info) Description 02/19/2024 Telephone Gynecology/Obstetrics [facility] [address] [facility] [place] [address] Marian Hall, DNP, CNM [address] [place], [place] [phone] Allergies No known active allergiesdocumented as of this encounter (statuses as of 02/19/2024) Medications Medication Sig Dispensed Refills Start Date [...] as of this encounter (statuses as of 02/19/2024) Active Problems Problem Noted Date Diagnosed Date [...] as of this encounter (statuses as of 02/19/2024) Resolved Problems Problem Noted Date Diagnosed Date [...] as of this encounter (statuses as of 02/19/2024) Immunizations Name Administration Dates Next Due DTaP [...] money to get more. Never true 06/2024 [place] Depression Scale Answer Date Recorded [place] Depression Scale Total 10 12/15/2023 The thought [...] Description 03/16/2024 11:30 AM EDT Office Visit Gynecology/Obstetrics Maryana Avila [address] [place] [address] [place], KATALINA John [address] [place] [address] Health Maintenance Due Date Last Done Comments [...] filedocumented as of this encounter Care Teams Instructional Writer Relationship Specialty Start Date End Date Vonda Lynn DO [address] [facility] 2 [place] [address] PCP - General Family Medicine 03/18/22 documented as of this encounter
--- OUTSIDE RECORDS SUMMARY | 2024-07-01 09:47 | External Medical Summary | Summary of Care ---
Author Name Unknown Organization [facility] Address [address] [place] [address] Phone [phone] Care Team Providers Care Natural Science Manager Name Role Phone Vonda Lynn DO Primary Care Provider +1- [phone] Reason for Visit * Reason Comments Return Visit Encounter Details Date Type Department Care Team (Late st Contact Info) Description 02/17/2024 11:45 AM EDT Office Visit Gynecology/Obstetric s Maryana Avila [address] [place] [address] Stephanie Ricardo CRNP [address] [place] [address] High-risk in second trimester*; Rh negative status during in second trimester; History of delivery of macrosomal infant; History of shoulder dystocia in prior ; Obesity in , antepartum; Umbilical cord cyst during , antepartum; Depression affecting Allergies No known active allergiesdocumented as of this encounter (statuses as of 02/17/2024) Medications Medication Sig Dispensed Refills Start Date [...] as of this encounter (statuses as of 02/17/2024) Active Problems Problem Noted Date Diagnosed Date [...] as of this encounter (statuses as of 02/17/2024) Resolved Problems Problem Noted Date Diagnosed Date [...] as of this encounter (statuses as of 02/17/2024) Immunizations Name Administration Dates Next Due DTaP [...] to get more. Never true 06/2024 [place] Depression Scale Answer Date Recorded [place] Depression Scale Total 10 12/15/2023 The thought [...] Sign Reading Time Taken Comments Blood Pressure 104/68 02/17/2024 11:51 AM EDT Pulse - - Temperature - - Respiratory Rate - - Oxygen Saturation - - Inhaled Oxygen Concentration - - Weight 125.6 kg (277 lb) 02/17/2024 11:51 AM EDT Height - - Body Mass Index 42.12 12/15/2023 9:53 AM EST documented in this encounter Progress Notes * Stephanie Ricardo CRNP - 02/17/2024 11:59 AM EDT 20w1d + movement. No pain/bleeding. Anatomy scan today, report in process. +cardiac activity. Anxiety/depression are "hit or miss" - some days she feels great, others not. Plans to call therapists; encouraged to reach out if assistance is needed. Declines MSAFP. 4 week return KATALINA Willoughby documented in this encounter Nursing Notes * Jamila Viera LPN - 02/17/2024 11:51 AM EDT 20w1d Denies vaginal bleeding/rom + movement Anatomy scan today Declines MSAFP No new concerns documented in this encounter Plan of Treatment Upcoming Encounters Date Type Department Care Team (Late st Contact Info) Description 03/16/2024 11:30 AM EDT Office Visit Gynecology/Obstetrics Maryana Avila [address] [place] [address] Stephanie Ricardo CRNP [address] [place] [address] Health Maintenance Due Date Last Done Comments [...] second trimester History of delivery of macrosomal infant History of shoulder dystocia in prior Obesity in , antepartum Obesity complicating , childbirth, or the puerperium, antepartum condition or complication Umbilical cord cyst during , antepartum Depression affecting documented in this encounter Care Teams Natural Science Manager Relationship Specialty Start Date End Date Vonda Lynn DO [address] [facility] 2 [place] [address] PCP - General Family Medicine 03/18/22 documented as of this encounter
--- OUTSIDE RECORDS SUMMARY | 2024-07-01 09:47 | External Medical Summary ---
Author Name Unknown Address Unknown Organization K01:LABORATORY [facility] [place] - [address] [place] [address] Laboratory Report Ordering Provider Test Date Status ROCHELLE BASSETT 04/16/2024 09:21:19 Final Observation Date Value Abnormality Reference (Units ) Status Iron 04/16/2024 09:21:19 53 33-151 (ug/dL) Final Iron-binding capacity 04/16/2024 09:21:19 462 Above high normal 250-425 (ug/dL) Final Transferrin Sat % 04/16/2024 09:21:19 11 Below low normal 15-55 (%) Final Performing Location LABORATORY [facility] [place] - [address] [place] [address]
--- OUTSIDE RECORDS SUMMARY | 2024-07-01 09:47 | External Medical Summary | Summary of Care ---
Author Name Unknown Organization [facility] Address [address] [place] [address] Phone [phone] Care Team Providers Care Rail Operator Name Role Phone Vonda Lynn DO Primary Care Provider +1- [phone] Reason for Visit * Reason Comments Return Visit Encounter Details Date Type Department Care Team (Late st Contact Info) Description 01/12/2024 11:45 AM EDT Office Visit Gynecology/Obstetric [facility] [address] [facility] [address] Marian Hall, DNP, CNM [address] [facility] [place] [address] High risk , antepartum*; History of delivery of macrosomal infant; History of shoulder dystocia in prior ; Obesity in , antepartum; Umbilical cord cyst during , antepartum; Depression affecting ; Nausea and vomiting during Allergies No known active allergiesdocumented as of this encounter (statuses as of 01/12/2024) Medications Medication Sig Dispensed Refills Start Date [...] as of this encounter (statuses as of 01/12/2024) Active Problems Problem Noted Date Diagnosed Date [...] as of this encounter (statuses as of 01/12/2024) Resolved Problems Problem Noted Date Diagnosed Date [...] as of this encounter (statuses as of 01/12/2024) Immunizations Name Administration Dates Next Due DTaP [...] you didn't have money to get more. Sometimes true [place] Depression Scale Answer Date Recorded [place] Depression Scale Total 10 12/15/2023 The thought [...] Reading Time Taken Comments Blood Pressure 108/70 01/12/2024 11:52 AM EDT Pulse - - Temperature - - Respiratory Rate - - Oxygen Saturation - - Inhaled Oxygen Concentration - - Weight 125.2 kg (276 lb) 01/12/2024 11:52 AM EDT Height - - Body Mass Index 41.97 12/15/2023 9:53 AM EST documented in this encounter Progress Notes * Marian Hall, BRYSON, CNM - 01/12/2024 12:01 PM EDT Augustina Hawley is a 23 year old female here for her routine OB appointment at 15w0d Her Estimated Date of Delivery: 07/05/24 REVIEW OF SYSTEMS: She affirms movement. Denies vaginal bleeding, LOF, contractions. Having daily nausea and vomiting that is unrelieved by vitb6, preggie pops, homar. Would like Zofran as she is nervous to try unisom as she is already a deep sleeper and is caring for her 1 year old. PHYSICAL EXAM: Filed Vitals: 01/12/24 1152 BP: 108/70 Weight: 125.2 kg (276 lb) FHR: 150s on US ASSESSMENT/PLAN: (O09.90) High risk , antepartum (primary encounter diagnosis) Plan: US PREG SINGLE/1ST GEST, 14 WEEKS OR LATER (O99.340, F32.A) Depression affecting Plan: Stopped Lexapro, feels stable (O21.9) Nausea and vomiting during Plan: Ondansetron HCl 4 MG Oral Tablet - recommended Covid vaccine due to increased risk of severe disease in . Patient states she is up to date. - anatomy u/s due in 4 weeks - discussed MSAFP and role in detecting open neural tube defects. Patient will check with her insurance and get done next visit, if covered. - Discussed MFM recommendation for US for Class 3 obesity, when pt found out it may be in [place] she declines. Will do anatomy US here. - RTO in 4 weeks Marian Hall DNP, ROWAN documented in this encounter Nursing Notes * Jamila Viera LPN - 01/12/2024 11:53 AM EDT 15w0d Denies vaginal bleeding/rom Absent movement Having a lot of N&V 2-3x daily- has tried B6 which helped at first but not so much now. ? Prescription to help Stopped Lexapro d/t onset of LOMBARDI- states feels ok off of medication. documented in this encounter Plan of Treatment Upcoming Encounters Date Type Department Care Team (Late st Contact Info) Description 02/17/2024 10:15 AM EDT Imaging Radiology [facility] [address] [place] [address] 02/17/2024 11:45 AM EDT Office Visit Gynecology/Obstetrics [facility] [address] [place] [address] [place], KATALINA John [address] [place] [address] Scheduled Orders Name Type Priority Associated Diagnoses Orde r Schedule US PREG SINGLE/1ST GEST, 14 WEEKS OR LATER Medical Imaging Routine High risk , antepartum Expected: 02/12/2024, Expires: 02/11/2025 Health Maintenance Due Date Last Done Comments Depression Screening 02/03/2020 02/02/2019 COVID-19 Vaccine ( season) 2023 01/26/2023, 01/04/2023 Influenza Vaccine (FLU shot) (#1) 2023 07/12/2022, 07/12/2022, 07/23/2019, Additional history exists Gonorrhea [...] Not on filedocumented as of this encounter Results * US PREG LIMITED 1 OR MORE FETUSES (01/12/2024 12:36 PM EDT) Anatomical Region Laterality Modality Pelvis, Body Ultrasound 01/12/2024 12:4 5 PM EDT Impressions 01/12/2024 12:43 PM EDT IMPRESSION Normal heart rate. Narrative 01/12/2024 12:43 PM EDT EXAM US PREG LIMITED 1 OR MORE FETUSES - 01/12/2024 12:36 pm HISTORY FHts COMPARISON 11/28/2023 TECHNIQUE Sonographic examination performed. FINDINGS : Brennan Presentation: Vertex heart rate: 152 bpm Procedure Note Dom Stephens MD - 01/12/2024 EXAM US PREG LIMITED 1 OR MORE FETUSES - 01/12/2024 12:36 pm HISTORY FHts COMPARISON 11/28/2023 TECHNIQUE Sonographic examination performed. FINDINGS : Brennan Presentation: Vertex heart rate: 152 bpm IMPRESSION IMPRESSION Normal heart rate. Marian Hall DNP, CHRISTELLEM RAD ULTRASOUND documented in this encounter Visit Diagnoses Diagnosis High risk , antepartum- Primary History of delivery of macrosomal infant History of shoulder dystocia in prior Obesity in , antepartum Obesity complicating , childbirth, or the puerperium, antepartum condition or complication Umbilical cord cyst during , antepartum Depression affecting Nausea and vomiting during High risk , antepartum documented in this encounter Care Teams Rail Operator Relationship Specialty Start Date End Date Vonda Lynn DO [address] [facility] 2 [place] [address] PCP - General Family Medicine 03/18/22 documented as of this encounter
--- OUTSIDE RECORDS SUMMARY | 2024-07-01 09:47 | External Medical Summary ---
Author Name Unknown Address Unknown Organization K01:LABORATORY [facility] - [address] [place] [address] Laboratory Report Ordering Provider Test Date Status DANYELLE,ROCHELLE 04/16/2024 09:21:19 Final Observation Date Value Abnormality Reference (Units ) Status Ferritin 04/16/2024 09:21:19 8 Below low normal 13- 150 (ng/mL) Final Performing Location LABORATORY [facility] - [address] [place] [address]
--- OUTSIDE RECORDS SUMMARY | 2024-07-01 09:47 | External Medical Summary ---
Author Name Unknown Address Unknown Organization K01:LABORATORY [facility] [place] - [address] [facility] [address] Laboratory Report Ordering Provider Test Date Status DANYELLEBACKER 04/16/2024 09:21:19 Final Observation Date Value Abnormality Reference (Units ) Status SYNC LEUKOCYTES IN BLOOD BY AUTOMATED COUNT 04/16/2024 09:21:19 8.21 4.00-10.80 (K/uL) Final Segs 04/16/2024 09:21:19 71.1 40.0-75.0 (%) Final Lymphs % 04/16/2024 09:21:19 19.1 18.0-42.0 (%) Final Monos 04/16/2024 09:21:19 7.3 1.0-11.0 (%) Final Eosinophils 04/16/2024 09:21:19 0.9 0.0-6.0 (%) Final Basos 04/16/2024 09:21:19 0.1 0.0-2.0 (%) Final Immature Granulocyte, Percent 04/16/2024 09:21:19 1.5 0.0-2.0 (%) Final Absolute Segs 04/16/2024 09:21:19 5.84 1.80-7.70 (K/uL) Final Lymphs, absolute 04/16/2024 09:21:19 1.57 1.00-4.80 (K/ul) Final Monos, Abs 04/16/2024 09:21:19 0.60 0.00-1.10 (K/uL) Final Eos, Abs 04/16/2024 09:21:19 0.07 0.00-0.70 (K/uL) Final Basos, Abs 04/16/2024 09:21:19 0.01 0.00-0.20 (K/uL) Final Immature Granulocytes, Number 04/16/2024 09:21:19 0.12 0.00-0.20 (K/uL) Final Performing Location LABORATORY [facility] [place] - [address] [facility] [address]
--- OUTSIDE RECORDS SUMMARY | 2024-07-01 09:47 | External Medical Summary ---
Author Name Unknown Address Unknown Organization K01:LABORATORY [facility] [place] - [address] [facility] [address] Laboratory Report Ordering Provider Test Date Status ROCHELLE BASSETT 04/16/2024 09:21:19 Final Observation Date Value Abnormality Reference (Units ) Status Treponema pallidum Ab [Presence] in Serum by Immunoassay 04/16/2024 09:21:19 Nonreactive Nonreactive Final No serologic evidence of syp hilis. No additional testing clinicially indicated at this time. Consider repeat testing in 2-4 weeks if acute or primary syphilis is suspected. Performing Location LABORATORY [facility] [place] [facility] [address] [facility] [address]
--- OUTSIDE RECORDS SUMMARY | 2024-07-01 09:47 | External Medical Summary ---
Author Name Unknown Address Unknown Organization K01:LABORATORY [facility] [place] - [facility] [address] [place] [address] Laboratory Report Ordering Provider Test Date Status ROCHELLE BASSETT 04/16/2024 09:21:19 Final Observation Date Value Abnormality Reference (Units ) Status Creatinine 04/16/2024 09:21:19 0.4 Below low normal 0.5-1.0 (mg/dL) Final Glomerular filtration rate/1.73 sq M.predicted [Volume Rate/Area] in Serum, Plasma or Blood by Creatinine-based formula (CKD-EPI) 04/16/2024 09:21:19 >90 >=60 (mL/min) Final eGFR is calculated based on the CKD-EPI 2020 equation Performing Location LABORATORY [facility] [place] - [facility] [address] [place] [address]
--- OUTSIDE RECORDS SUMMARY | 2024-07-01 09:47 | External Medical Summary | Summary of Care ---
Author Name Unknown Organization [facility] Address [address] [place] [address] Phone [phone] Care Team Providers Care Leak Detection Engineer Name Role Phone Vonda Lynn DO Primary Care Provider [phone] Encounter Details Date Type Department Care Team (Late st Contact Info) Description 02/19/2024 Telephone Gynecology/Obstetrics [facility] [address] [facility] [place] [address] Marian Hall, DNP, CNM [address], [place] [id number] Allergies No known active allergiesdocumented as of [...] money to get more. Never true 06/2024 [place] Depression Scale Answer Date Recorded [place] Depression Scale Total 10 12/15/2023 The thought [...] Gynecology/Obstetrics Maryana Avila [address] [place] [id number] [place], KATALINA John [address] [place] [address] Health Maintenance Due Date Last Done Comments [...] filedocumented as of this encounter Care Teams Leak Detection Engineer Relationship Specialty Start Date End Date Vonda Lynn DO [address] [facility] [address] [place] [address] PCP - General Family Medicine 03/18/22 documented as of this encounter
--- OUTSIDE RECORDS SUMMARY | 2024-07-01 09:47 | External Medical Summary ---
Author Name Unknown Address Unknown Organization [id number]:LABORATORY [facility] [place] - [address] [place] [address] Laboratory Report Ordering Provider Test Date Status ROCHELLE BASSETT 04/16/2024 09:21:19 Final Observation Date Value Abnormality Reference (Units ) Status Folic Acid 04/16/2024 09:21:19 4.2 Below low normal >4 .5 (ng/mL) Final Performing Location LABORATORY [facility] - [address] [place] [address]
--- OUTSIDE RECORDS SUMMARY | 2024-07-01 09:47 | External Medical Summary ---
Author Name Unknown Address Unknown Organization [id number]:LABORATORY [facility] [place] - [address] [facility] [address] Laboratory Report Ordering Provider Test Date Status ROCHELLE BASSETT 04/16/2024 09:21:19 Final Observation Date Value Abnormality Reference (Units ) Status Retic, % (auto) 04/16/2024 09:21:19 3.52 Above high normal 0.80-1.90 (%) Final Reticulocytes, Absolute 04/16/2024 09:21:19 120.0 Above high normal 31.3-100.1 (K/uL) Final Reticulocyte fraction, immature 04/16/2024 09:21:19 30.4 Above high normal 2.5-20.6 (%) Final Reticulocyte HGB 04/16/2024 09:21:19 32.6 29.7-37.4 (pg) Final Performing Location LABORATORY [facility] - [address] [facility] [address]
[2024-07-01 09:58] LABS: Hematocrit (blood only) 33.4 % (37.0-47.0); Hemoglobin 10.4 g/dl (12.0-16.0); Mean Corpuscular Hemoglobin 29.4 pg (25.0-34.0); Mean Corpuscular Hgb Conc 31.1 g/dL (32.0-36.0); Mean Corpuscular Volume 94.4 fL (80.0-100.0); Mean Platelet Volume 11.3 fL (9.4-12.4); Platelet Count 146 K/uL (130-400); RDW Coefficient of Variation 17.8 % (11.5-14.5); RDW Standard Deviation 60.1 fL (36.4-46.3); Red Blood Count 3.54 M/uL (4.20-5.40); White Blood Count 5.27 K/ul (4.8-10.8)
--- NOTE | 2024-07-01 10:03 | History & Physical Report ---
Date of Service July 01, 2024 Assessment & Plan (1) Macrosomia affecting management of mother in third trimester, single gestation: Plan: induction with Oxytocin (2) : (3) 39 weeks gestation of : Admission and Anticipated Discharge Date Admission Date: July 01, 2024 History of Present Illness Chief Complaint: induction of labor Primary Care Provider: HEATHER PCP 23 F P2002 at 39.3 weeks admitted for IOL for obesity and history of macrosomia. GBS is negative. Allergies Allergy/AdvReac Type Severity Reaction Status Date / Time No Known Allergies Allergy Verified 06/03/23 22:32 Home Medications Medication Instructions Recorded Confirmed Type Vitamin 1 tab PO DAILY 07/01/24 07/01/24 History Patient History Medical History Depression Anxiety Anemia Spontaneous vaginal delivery 10/10/19 LFC 10lbs 5.5oz Surgical History No significant past surgical history Family History Other Family history not known due to adoption Social History Smoking Status: Never smoker Second Hand Exposure: No; Do You Dip or Chew Tobacco: No; Hx Alcohol Use: No Hx Substance Use: No Preferred Language: [place] Communication Ability: Effective Military Exchange Wireless Manager Required: No Beliefs That Will Affect Care: None marital status: Single marital status details: Jan Olvera Current Living Situation: Significant Other Current Living Situation Comment: House with FOB and daughter Other Information That Helps Us Care for You: No Feels Safe at Home: Yes Safety Concerns: Feels Safe At This Time Assistive Devices: None OB History x2 history of shoulder dystocia in first CELLAR PUMPER History neg Review of Systems All systems reviewed & are unremarkable except as noted in HPI & below Physical Exam Constitutional: WD/WN, vitals as above Eyes: PERRL, conjunctivae normal, anicteric sclerae Respiratory: normal respiratory effort, lungs clear to auscultation Cardiovascular: RRR, no murmur, no edema Gastrointestinal (Abdomen): Inspection/Auscultation: abdomen normal to inspection Musculoskeletal: Extremities: extremities normal to inspection Skin: no rashes, warm and dry Neurologic: patellar DTR's 2+ bilat, sensation intact Psychiatric: A+Ox3, euthymic affect Genitourinary: no vaginal lesions, no adnexal mass Manual OB Exam: + cervical dilation 4 cm, + cervical effacement 70% and + station -1 OB Exam Monitor Tracing: + external FHT monitor used, + external uterine monitor used, + category I and + normal FHT variability EFW 8-9 lbs Results & Data Vital Signs (Past 12 Hours) Vital Signs Temp Pulse Resp BP 07/01/24 08:52 37.0 C 18 07/01/24 08:51 95 H 109/58 L Laboratory Results Laboratory Results - last 48 hr 07/01/24 09:18 WBC 5.27 RBC 3.54 L Hgb 10.4 L Hct 33.4 L MCV 94.4 MCH 29.4 MCHC 31.1 L RDW Std Deviation 60.1 H RDW Coeff of West 17.8 H Plt Count 146 MPV 11.3 Code Status & VTE Plan VTE Prophylaxis Plan VTE Prophylaxis will be ordered: No Monitoring External Monitor Cat 1 (2) Weeks of gestation: 39 weeks Qualified Code(s): Z3A.39 - 39 weeks gestation of
[2024-07-01] MEDS: OXYTOCIN 30 UNITS/NSS 30 UNITS/500 ML BAG IV PRN (10:44)
[2024-07-01] MEDS: LACTATED RINGER'S 1,000 ML IV PRN (10:44)
--- NOTE | 2024-07-01 13:16 | Labor Progress Brief Note ---
Date of Service July 01, 2024 Assessment & Plan Admission and Anticipated Discharge Date Admission Date: July 01, 2024 Physical Exam Genitourinary: Manual OB Exam: + cervical dilation 4 cm, + cervical effacement 80% and + station -1 OB Exam Monitor Tracing: + external FHT monitor used, + external uterine monitor used, + category I and + normal FHT variability AROM with Amni-hook no fluid noted Results & Data Vital Signs (Past 12 Hours) Vital Signs Temp Pulse Resp BP 07/01/24 12:47 97 H 98/50 L 07/01/24 12:14 20 07/01/24 12:14 37.1 C 07/01/24 11:47 96 H 99/55 L 07/01/24 10:46 90 109/56 L 07/01/24 08:52 37.0 C 07/01/24 08:51 95 H 109/58 L
[2024-07-01] MEDS ORDERED: LIDOCAINE 2% MPF LOCAL 5 ML VIAL EPI PRN (14:48)
[2024-07-01] MEDS ORDERED: NALOXONE HCL 1 MG in SODIUM CHLORIDE 0.9% 1,000 ML IV PRN (14:48)
[2024-07-01] MEDS ORDERED: SODIUM CHLORIDE 0.9% PF INJ 10 ML VIAL EPI PRN (14:48)
[2024-07-01] MEDS ORDERED: ePHEDrine sulfate 50 MG/ML AMP IV PRN (14:48)
[2024-07-01] MEDS ORDERED: NALOXONE HCL 0.4 MG/1 ML VIAL/CARP IV PRN (14:48)
[2024-07-01] MEDS ORDERED: BUPIVACAINE 0.25% PF 30 ML VIAL EPI PRN (14:48)
[2024-07-01] MEDS ORDERED: NALBUPHINE HCL INJ 10 MG/ML AMP IV PRN (14:48)
[2024-07-01] MEDS ORDERED: diphenhydrAMINE 50 MG/ML VIAL IV PRN (14:48)
[2024-07-01] MEDS ORDERED: fentaNYL citrate PF 100 MCG/2 ML VIAL EPI PRN (14:48)
[2024-07-01] MEDS ORDERED: ROPIVACAINE 0.5% PF 5 MG/ML 20 ML VIAL EPI PRN (14:48)
--- NOTE | 2024-07-01 14:49 | Anesthesiology Consultation ---
Date of Service July 01, 2024 Assessment & Plan Chart Review Chart Review: Patient NOT seen in Pre Admission Testing and Acceptable Risk for Labor Epidural Consults Requested none History Height/Weight Height: 5 ft 8 in Weight: 128.82 kg Allergies Allergy/AdvReac Type Severity Reaction Status Date / Time No Known Allergies Allergy Verified 06/03/23 22:32 Medications Home Medications Medication Instructions Recorded Confirmed Last Taken Vitamin 1 tab PO DAILY 07/01/24 07/01/24 06/30/24 08:00 Active Medications Generic Name Dose Route Start Last Admin Trade Name Freq PRN Reason Stop Dose Admin Lactated Ringer's 1,000 mls @ 125 mls/hr 07/01/24 09:18 07/01/24 14:15 Lr IV 07/03/24 09:17 999 mls/hr .Q8H PRN Infusion L&D Protocol Protocol Oxytocin 30 units in 500 mls @ 13 mls/hr 07/01/24 09:58 07/01/24 13:45 Pitocin 30 Units/Nss IV 07/03/24 09:57 0.78 units/hr .Q24H PRN 13 mls/hr Labor Induction/Augmentation Titration Protocol 0.78 UNITS/HR Past Medical History Medical History Depression Anxiety Anemia Spontaneous vaginal delivery 10/10/19 LFC 10lbs 5.5oz Past Family History Family History Other Family history not known due to adoption Past Surgical History Surgical History No significant past surgical history Social History Smoking Status: Never smoker Do You Dip or Chew Tobacco: No Hx Alcohol Use: No Hx Substance Use: No Physical Exam Vital Signs Last Vital Signs Temp 98.1 F 07/01/24 13:17 Pulse 95 H 07/01/24 14:31 Resp 20 07/01/24 12:14 BP 101/56 L 07/01/24 14:31 Testing Laboratory Results 07/01/24 09:18 Blood Type A Negative 07/01/24 09:18 Antibody Screen NEGATIVE 07/01/24 09:18
[2024-07-01] MEDS: fentANYL 2 MCG/ML BUPIVacaine 0.125%-NSS 100ML BAG EPI PRN (14:56)
[2024-07-01] MEDS: BUPIVACAINE 0.25% PF 30 ML VIAL ONE (15:08)
[2024-07-01] MEDS: LIDOCAINE 2%/EPINEPHRINE 1:200,000 20 ML PF ONE (15:08)
[2024-07-01] MEDS: ePHEDrine sulfate 50 MG/ML AMP ONE (16:35)
[2024-07-01] MEDS: fentaNYL citrate PF 100 MCG/2 ML VIAL ONE (16:35)
[2024-07-01] MEDS: SODIUM CHLORIDE 0.9% PF INJ 10 ML VIAL ONE (16:36)
[2024-07-01] MEDS: fentaNYL citrate PF 100 MCG/2 ML VIAL EPI STA (16:36)
[2024-07-01] MEDS: LIDOCAINE 2%/EPINEPHRINE 1:200,000 20 ML PF EPI STA (16:36)
[2024-07-01] MEDS: SODIUM CHLORIDE 0.9% PF INJ 10 ML VIAL EPI STA (16:36)
[2024-07-01] MEDS: BUPIVACAINE 0.25% PF 30 ML VIAL EPI STA (16:36)
[2024-07-01] MEDS: fentANYL 2 MCG/ML BUPIVacaine 0.125%-NSS 100ML BAG ONE (16:36)
--- NOTE | 2024-07-01 16:42 | Delivery Summary ---
Vaginal Delivery Summary Date of Service July 01, 2024 Vaginal Delivery Summary live male JED over intact perineum with nuchal cord x1 reduced at delivery with Apgars 9/9 and cord lamping delayed. Cord blood obtained followed by spontaneous delivery of intact placenta. No tears. QBL 112 ml. Final sponge and instrument count are correct. Mom and baby stable.
[2024-07-01] MEDS ORDERED: BENZOCAINE 20% SPRY 85 APPLN/85 GM CAN EXT PRN (16:52)
[2024-07-01] MEDS ORDERED: DIPHTHER/TETAN/PERTUS Vaccine (Tdap, Adol/Adult) 0.5mL IM ONE (16:52)
[2024-07-01] MEDS ORDERED: HYDROCORTISONE ACETATE 25 MG SUPP PR PRN (16:52)
[2024-07-01] MEDS ORDERED: bisacodyL 10 MG SUPP PR PRN (16:52)
--- NOTE | 2024-07-01 17:10 | Anesthesia Procedure Note ---
Date of Service July 01, 2024 Anesthesia Post Epidural Note Vital Signs Vital Signs: Temp Pulse Resp BP Pulse Ox 37.2 C 82 18 98/57 L 94 07/01/24 15:16 07/01/24 16:59 07/01/24 16:45 07/01/24 16:59 07/01/24 16:25 Notes Mental Status: alert / awake / arousable and participated in evaluation Nausea / Vomiting: adequately controlled Pain: adequately controlled Airway Patency, RR, SpO2: stable & adequate BP & HR: stable & adequate Hydration State: stable & adequate Neuraxial Anesthesia: was administered and sensory block is resolving Anesthetic Complications: no major complications apparent Epidural: Removed without complications and With tip intact
[2024-07-01] MEDS: ACETAMINOPHEN 325 MG TAB PO PRN (19:28)
[2024-07-01] MEDS: DOCUSATE SODIUM 100 MG CAP PO SCH (22:30)
[2024-07-01] MEDS: IBUPROFEN 600 MG TAB PO PRN (23:58)
[2024-07-02] MEDS: FERROUS SULFATE 325 MG TAB PO SCH (08:17)
[2024-07-02] MEDS: PRENATAL VITAMIN 1 TAB PO SCH (08:17)
[2024-07-02 08:38] LABS: Hematocrit (blood only) 33.2 % (37.0-47.0); Hemoglobin 10.3 g/dl (12.0-16.0); Mean Corpuscular Hemoglobin 29.6 pg (25.0-34.0); Mean Corpuscular Volume 95.4 fL (80.0-100.0); Mean Platelet Volume 11.4 fL (9.4-12.4); Platelet Count 146 K/uL (130-400); RDW Coefficient of Variation 18.4 % (11.5-14.5); RDW Standard Deviation 61.7 fL (36.4-46.3); Red Blood Count 3.48 M/uL (4.20-5.40); White Blood Count 4.87 K/ul (4.8-10.8)
--- NOTE | 2024-07-02 08:42 | Obstetrical Progress Note ---
Date of Service July 02, 2024 Assessment & Plan Admission and Anticipated Discharge Date Admission Date: July 01, 2024 Subjective Patient is seen and examined. She feels well, no complaints. Ambulating without dizziness Voiding without difficulty Tolerating regular diet with out N&V Bleeding is minimal No fever/ chills/ CP/ SOB/ N&V/ Leg pain Breast and bottle feeding without problems Vital Signs Temp Pulse Resp BP Pulse Ox O2 Del Method 07/02/24 07:30 36.5 C 74 14 96/65 L 97 Room Air 07/02/24 03:10 36.6 C 77 16 92/59 L 98 Room Air 07/02/24 00:02 36.8 C 86 18 95/61 L 96 Room Air Lab Results 07/01/24 07/02/24 Range/Units 09:18 07:57 WBC 5.27 4.87 (4.8-10.8) K/ul RBC 3.54 L 3.48 L (4.20-5.40) M/uL Hgb 10.4 L 10.3 L (12.0-16.0) g/dl Hct 33.4 L 33.2 L (37.0-47.0) % MCV 94.4 95.4 (80.0-100.0) fL MCH 29.4 29.6 (25.0-34.0) pg MCHC 31.1 L 31.0 L (32.0-36.0) g/dL RDW Std Deviation 60.1 H 61.7 H (36.4-46.3) fL RDW Coeff of West 17.8 H 18.4 H (11.5-14.5) % Plt Count 146 146 (130-400) K/uL MPV 11.3 11.4 (9.4-12.4) fL Blood Type A Negative Antibody Screen NEGATIVE PE: General: Alert, orientedx3, NAD Abd: soft, NT, fundus firm, below Umbilicus Perineum intact, Lochia rubra minimal Ext; NT, no edema AP: 23 yo s/p , ppd# 1 VSS Afebrile doing well Continue routine care h/o depression, was on lexapro but had multiple side effects from it, recommended consult psychiatry, she agreed All questions were answered D/C home tonight if baby will be discharged Results & Data Vital Signs (Past 12 Hours) Vital Signs Temp Pulse Resp BP Pulse Ox O2 Del Method 07/02/24 07:30 36.5 C 74 14 96/65 L 97 Room Air 07/02/24 03:10 36.6 C 77 16 92/59 L 98 Room Air 07/02/24 00:02 36.8 C 86 18 95/61 L 96 Room Air
[2024-07-02] MEDS ORDERED: NON-FORMULARY MEDICATION (Prenatal Vitamin 1 TAB) PO SCH (09:00)
--- NOTE | 2024-07-02 11:51 | Psychiatric Consultation ---
Date of Consultation July 02, 2024 Impression / Recommendations Impression 23 yo woman with history of depression, anxiety admitted to the OB service s/p of a baby boy. Psychiatry consulted for recommendations for medication for depression. Diagnostically consistent with likely CLAU and history of depression which increases risk for depression. Initiation of an SSRI is reasonable and can help reduce the risk for depression and should help with her anxiety. Discussed medication treatment options in detail. Discussed risks, benefits and alternatives. Patient would like to start and consented to sertraline for depression and anxiety. Reviewed side effects including but not limited to: GI, LOMBARDI, sexual side effects, and counseled on black box warning of potential for emergence of or increased SI and need to let staff know should this occur or should they feel unsafe. Also discussed importance of seeking emergency care following discharge if this side effect occurs in the future. Reviewed that it is considered safe as only small amounts pass into the breastmilk and she was provided with [id number] fact sheet. Also provided with information about outpatient therapy support group and local mental health resources if she decides to start individual therapy in the future. Acute risk of self-harm is low given denial of SI, no current symptoms of major depressive episode and future-oriented. Overall, I spent a total of 45 minutes with this case including review of chart records, review of labwork, direct evaluation of the patient at bedside, counseling the patient, discussion of the patient with the Nurse and with the OB provider, discussion with the psychiatric liason during clinical rounds and documentation in the electronic health record. (1) CLAU (generalized anxiety disorder): (2) Post depression: Plan -Recommend starting sertraline 50mg daily (she can take a half dose of 25mg if GI side effects or LOMBARDI occurs for 1 week and then re-titrate to 50mg if needed) -Dose can be increased beyond 50mg in 4-6 weeks as needed for further symptom management Psych History Identifying Data 23 yo woman with history of depression, anxiety admitted to the OB service s/p of a baby boy. Psychiatry consulted for recommendations for medication for depression. Chief Complaint "I'm doing ok but I worry things could get worse". History of Present Illness Augustina is holding her son during our interview, appears attentive and reports bonding well with him so far. She is interested in starting a medication for depression given history of this and anxiety in the past and she worries it could worsen in the period. She has previously been prescribed antidepressant medications including escitalopram (Lexapro) during for about a month but had to discontinue it due to bad headaches and possible increased irritability. She also mentions having tried another antidepressant before her , but she does not recall the name of that medication. She denies any history of manic episodes or being diagnosed with bipolar disorder, although her fianc has noticed potential signs that he wondered could be bipolar. She denies any history of going days without sleep with changes in irritability, mood, energy level or reckless/risk taking behaviors. She is adopted and is unsure of any family history of bipolar disorder. Currently she reports that her mood is "hit or miss" and that she is "feeling good" at times. She endorses difficulty with sleep and anxiety. In terms of feeding plans for her , she is considering a combination of formula feeding and pumping breastmilk. She has been considering outpatient therapy, is receptive to potentially considering this. Allergies Allergy/AdvReac Type Severity Reaction Status Date / Time No Known Allergies Allergy Verified 06/03/23 22:32 Home Medications Medication Instructions Recorded Confirmed Type Vitamin 1 tab PO DAILY 07/01/24 07/01/24 History breast pump #1 ea 07/02/24 Rx ibuprofen 600 mg tablet 600 mg PO Q6 #60 tabs 07/02/24 Rx vits no.124-ferrous fum 1 tab PO DAILY@08 #60 tabs 07/02/24 Rx 27 mg iron-folic acid 800 mcg tablet ( Vitamin) sertraline 50 mg tablet (Zoloft) 50 mg PO DAILY #30 tabs 07/02/24 Rx Patient History Medical History Depression Anxiety Anemia Spontaneous vaginal delivery 10/10/19 C 10lbs 5.5oz Surgical History No significant past surgical history Family History Other Family history not known due to adoption Social History Smoking Status: Never smoker Second Hand Exposure: No; Do You Dip or Chew Tobacco: No; Hx Alcohol Use: No Hx Substance Use: No Preferred Language: Yakut Communication Ability: Effective Manager Access Required: No Beliefs That Will Affect Care: None marital status: Single marital status details: Jan Olvera Current Living Situation: Significant Other Current Living Situation Comment: House with FOB and daughter Other Information That Helps Us Care for You: No Feels Safe at Home: Yes Safety Concerns: Feels Safe At This Time Assistive Devices: None Physical Exam Psychiatric: Orientation: alert and oriented x 3 Apperance: appropriately dressed and appropriately groomed Eye Contact: good eye contact Motor Behavior: no abnormal motor movements Speech: normal rate/rhythm/volume of speech Affect: euthymic affect Mood: + depressed mood and + anxious mood Thought Process: goal directed thought process Thought Content: reality based without delusions Suicidal Thoughts: denies suicidal thoughts Homicidal Thoughts: denies homicidal thoughts Hallucinations: no auditory hallucinations and no visual hallucinations Cognition: attention grossly intact and language grossly intact Estimated Intelligence: consistent with education level Insight: + fair insight Judgment: + fair judgement Vital Signs (Past 24 Hours): Last Vital Signs Temp 36.5 C 07/02/24 07:30 Pulse 74 07/02/24 07:30 Resp 14 07/02/24 07:30 BP 96/65 L 07/02/24 07:30 Pulse Ox 97 07/02/24 07:30 O2 Del Method Room Air 07/02/24 07:30 Results & Data (PSY) Medications Administered Acetaminophen (Acetaminophen 325 Mg Tab) 650 mg PO Q6H PRN PRN Reason: Pain/LOMBARDI/Fever Stop: 07/31/24 16:51 Last Admin: 07/01/24 19:28 Dose: 650 mg Documented By: AARON Docusate Sodium (Docusate Sodium 100 Mg Cap) 100 mg PO DAILY@08,21 [facility] Stop: 07/31/24 20:59 Last Admin: 07/02/24 08:17 Dose: 100 mg Documented By: [id number] Admin: 07/01/24 22:30 Dose: 100 mg Documented By: AARON Ferrous Sulfate (Ferrous Sulfate 325 Mg Tab) 325 mg PO DAILY@08 [facility] Stop: 08/01/24 07:59 Last Admin: 07/02/24 08:17 Dose: 325 mg Documented By: [id number] Ibuprofen (Ibuprofen 600 Mg Tab) 600 mg PO Q4H PRN PRN Reason: Pain/LOMBARDI/Cramping/Fever Stop: 07/31/24 16:51 Last Admin: 07/02/24 08:17 Dose: 600 mg Documented By: [id number] Admin: 07/01/24 23:58 Dose: 600 mg Documented By: CG Prenat Multivit/[place]/Iron/Folic Ac ( Vitamin 1 Tab) 1 tab PO DAILY@08 [facility] Stop: 08/01/24 07:59 Last Admin: 07/02/24 08:17 Dose: 1 tab Documented By: [id number] Coding Level of Care Code 10380 IN/OBS CONSULT LVL 3,45M Diagnoses CLAU (generalized anxiety disorder) F41.1 Post depression F53.0
[2024-07-02 16:05] VITALS: RESP 18
[2024-07-02] MEDS: SERTRALINE HCL 50 MG TABLET PO ONE (16:11)
[2024-07-02] MEDS ORDERED: Nursing to Pharmacy Communication SCH (20:00)
[2024-07-02] MEDS: SODIUM CHLORIDE 0.65% NA SOLN 45 ML (OCEAN) PRN (20:18)
[2024-07-02] MEDS: bisacodyL 5 MG TABEC PO SCH (20:20)
[2024-07-03 07:15] LABS: Hemoglobin 10.3 g/dl (12.0-16.0)
[2024-07-03 09:18] VITALS: PULSE 80; TEMP 98.2; O2SAT 96
--- NOTE | 2024-07-03 10:36 | Obstetrical Progress Note ---
Date of Service July 03, 2024 Assessment & Plan Admission and Anticipated Discharge Date Admission Date: July 01, 2024 OB Progress Note abdomen soft and non tender no calf tenderness ambulating well vaginal bleeding scant hgb 10.3 Results & Data Vital Signs (Past 12 Hours) Vital Signs Temp Pulse Resp BP Pulse Ox O2 Del Method 07/03/24 07:45 36.8 C 80 18 102/67 96 Room Air 07/02/24 23:14 36.7 C 79 18 102/66 97 Room Air
[2024-07-03 10:44] VITALS: BP 108/72
== END 2024-07-03 12:37 | disposition home health service (06) | DRG 807 ==
LOC: 4S1 08:44 → 4E2 19:26